=== PATIENT | female | born 1950 | race Caucasian/White ===

== ENCOUNTER → 2020-04-22 10:13 | Outpatient (BNVA) | payer MEDICARE, SELFPAY | PROVIDERS: PCP Physician Assistant; Visit Provider Internal Medicine | DX: J44.9 Chronic obstructive pulmonary disease, unspecified (principal) | CPT/HCPCS: 99212 ==

== ENCOUNTER 2020-08-06 10:06 | Outpatient (REF) | payer OTHER, SELFPAY ==
--- NOTE | ~2020-08-06 | CT_ITS ---
EXAMINATION: CT CHEST SCREENING CLINICAL INFORMATION: Nicotine dependence. COMPARISON: 07/11/2019 and 06/06/2018 TECHNIQUE: Multidetector volumetric CT imaging of the chest is performed without contrast using low dose technique. Additional 2-D coronal and sagittal reformatted images and axial 3-D maximum intensity projection (MIP) images are generated on the CT workstation. This CT examination was performed using dose optimization techniques as appropriate, variously including the following: *Automated exposure control *Adjustment of mA and/or kV according to patient size (this includes techniques or standardized protocols for targeted exams where dose is matched to indication/reason for exam; i.e. extremities or head) *Use of iterative reconstruction technique DLP: 37 mGy-cm FINDINGS: LUNGS: Lungs are hyperinflated. Changes of significant centrilobular emphysema are present. There is some scarring seen along the fissures. There is scarring seen about the anterior aspect of the right lower lobe. Central airways are patent. No significant bronchial wall thickening appreciated. No bronchiectasis. There are some scattered sub-4 mm densities present. There is calcification within the left lower lobe which may be related to broncholith or granuloma. There is a 4 mm noncalcified subpleural density seen posterior aspect of the right upper lobe on image 92 of 506 in series #5. This is stable. There is a 6 mm noncalcified density seen on image 128 of 506 within the right upper lobe. This is larger than on prior study where it measured 3 mm in diameter. There is a 5 mm noncalcified nodule seen within the superior segment of the right upper lobe on image 206 of 506. This is stable. MEDIASTINUM: Visualized portions of the thyroid gland are unremarkable. Heart normal size. Coronary artery calcification present. No thoracic aortic aneurysm. Small amount of nonocclusive aortic arch calcified plaque seen. No pericardial effusion. No mediastinal or hilar lymphadenopathy identified. PLEURA: There is no pleural effusion. No pleural mass or thickening. AXILLA: No lymphadenopathy. UPPER ABDOMEN: Unremarkable. OSSEOUS STRUCTURES: No suspicious destructive bony lesion identified. Old healed right rib fractures evident. There is a T4 compression fracture evident with the appearance of vertebra planum. This is new since previous study of 07/11/2019. CT/CT lung screening IMPRESSION: Changes of significant centrilobular emphysema. Stable appearance of nodules other than one in the right upper lobe which on prior study measured approximately 3 mm in diameter and now measures 6 mm in diameter. Interval development of T4 compression fracture since study of 07/11/2019. ASSESSMENT: Lung-RADS category 4A: Suspicious. RECOMMENDATION: Short interval 3-month followup low dose CT chest.
== END 2020-08-06 10:07 | disposition home or self-care (01) ==
LOC: HO.CT 10:06
PROVIDERS: Visit Provider Physician Assistant Medical
DX: Z12.2 Encounter for screening for malignant neoplasm of respiratory organs (principal); F17.210 Nicotine dependence, cigarettes, uncomplicated
CPT/HCPCS: 71271

== ENCOUNTER → 2020-10-19 09:54 | Outpatient (BNVA) | payer OTHER, SELFPAY | PROVIDERS: PCP Physician Assistant; Visit Provider Internal Medicine ==

== ENCOUNTER 2020-12-01 08:56 | Outpatient (REF) | payer MEDICARE, SELFPAY ==
--- NOTE | ~2020-12-01 | MM_ITS ---
EXAMINATION: BONE DENSITOMETRY CLINICAL INDICATION: Asymptomatic menopausal state. COMPARISON: None (current study represents initial baseline exam). TECHNIQUE: Using a [employer] DXA System (software version: 13.1) manufactured by [employer], dual-energy x-ray absorptiometry was performed of the lumbar spine and left hip. The images are of good technical quality. Summary results are attached. FINDINGS: AP SPINE L1-L3 (excluding L4): The data of L1-L4 has been changed to exclude the L4 vertebral body, because levocurvature and degenerative changes at this level may cause overestimation of lumbar spine density. BMD 0.748 g/cm2, Z-score -2.0, T-score -3.5, osteoporosis. LEFT FEMUR, NECK: BMD 0.686 g/cm2, Z-score -1.0, T-score -2.5, osteoporosis. LEFT FEMUR, TOTAL: BMD 0.718 g/cm2, Z-score -1.0, T-score -2.3, osteopenia. IDENTIFIED RISK FACTORS: Menopause. Low calcium intake. HISTORY OF FRACTURE: None listed. MEDICATIONS: None listed. MM/XR DEXA axial skeleton IMPRESSION: 1. DIAGNOSIS: Osteoporosis based on the lowest T-score value of -3.5 in the lumbar spine applying World Health Organization criteria. 2. 10-YEAR FRACTURE RISK PREDICTION, FRAX: Major osteoporotic fracture (clinical spine, forearm, hip or shoulder) 14.7%. Hip fracture 3.7%. 3. Treatment Recommendations: NOF guidelines recommend consideration for treatment in postmenopausal women and men age 50 and older presenting with the following: -A hip or vertebral (clinical or morphometric) fracture. -T-score less than or equal to -2.5 at the femoral neck or spine after appropriate evaluation to exclude secondary causes. -Low bone mass at the hip or spine and a 10-year fracture probability by FRAX of greater than or equal to 3% for hip fracture or greater than or equal to 20% for major osteoporotic fracture based on the [place] adapted WHO algorithm. 4. Other Recommendations: All treatment decisions require clinical judgment and consideration of individual patient factors, including patient preferences, comorbidities, previous drug use, risk factors not captured in the FRAX model (e.g. frailty, falls, vitamin D deficiency, increased bone turnover, interval significant decline in bone density) and possible under or overestimation of fracture risk by FRAX. Additional medical evaluation for secondary cause of low bone mineral density may be appropriate. FUTURE SCAN RECOMMENDATION: People with diagnosed cases of osteoporosis or at high risk for fracture should have regular bone mineral density tests. For patients eligible for Medicare, routine testing is allowed once every 2 years. The testing frequency can be increased to one year for patients who have rapidly progressing disease, those who are receiving or discontinuing medical therapy to restore bone mass, or have additional risk factors.
--- NOTE | ~2020-12-01 | MM_ITS ---
EXAMINATION: MM SCREENING DIGITAL BREAST TOMOSYNTHESIS, BILATERAL CLINICAL INFORMATION: Screening. Asymptomatic. The lifetime risk of breast cancer based on the Tyrer-Cuzick Model is 7%. COMPARISON: Mammography: 07/30/2019, 05/29/2018, 07/07/2016 TECHNIQUE: Digital breast tomosynthesis is performed in both the craniocaudal and mediolateral oblique views along with computer-aided detection (CAD). Synthesized 2D images are generated from the tomosynthesis. FINDINGS: There are scattered areas of fibroglandular density (ACR BI-RADS breast composition Category b). There are no significant masses, abnormal calcifications, or other abnormalities. Parenchymal pattern is similar to prior exams. The axilla and skin contours are unremarkable. MM/MM tomosynthesis screening BI IMPRESSION: No mammographic evidence of malignancy. ASSESSMENT: BI-RADS 1: Negative RECOMMENDATION: Routine annual mammography screening. This patient's information was entered into a reminder system with a target due date for their next mammogram.
== END 2020-12-01 08:57 | disposition home or self-care (01) ==
LOC: HO.MAMMO 08:56
PROVIDERS: Visit Provider Physician Assistant
DX: Z12.31 Encounter for screening mammogram for malignant neoplasm of breast (principal); Z13.820 Encounter for screening for osteoporosis; M81.0 Age-related osteoporosis without current pathological fracture; Z78.0 Asymptomatic menopausal state
CPT/HCPCS: 77063; 77067; 77080

== ENCOUNTER 2021-01-25 09:29 | Outpatient (REF) | payer OTHER, SELFPAY ==
--- NOTE | ~2021-01-25 | CT_ITS ---
EXAMINATION: CT CHEST SCREENING CLINICAL INFORMATION: Six-month low-dose CT screening protocol. COMPARISON: None. TECHNIQUE: Multidetector volumetric CT imaging of the chest is performed without contrast using low dose technique. Additional 2-D coronal and sagittal reformatted images and axial 3-D maximum intensity projection (MIP) images are generated on the CT workstation. This CT examination was performed using dose optimization techniques as appropriate, variously including the following: *Automated exposure control *Adjustment of mA and/or kV according to patient size (this includes techniques or standardized protocols for targeted exams where dose is matched to indication/reason for exam; i.e. extremities or head) *Use of iterative reconstruction technique DLP: 36 mGy-cm FINDINGS: LUNGS: The lungs are hyperinflated with linear thickening of bilateral inferior major fissures. Mild atelectatic changes are seen in the right lower lobe and, to a lesser extent, the left lower lobe. Previously seen nodule along the right upper lobe location measuring 5 mm, previously measured 4 mm. There is a 6 mm nodule posteriorly within the right upper lobe on axial image 117/6, stable. There is a 4 mm nodule seen in the right lower lobe superior segment medially on axial image 192/6 that previously measured 4 mm. No additional lesions seen. MEDIASTINUM: The heart size and the great vessels are normal caliber. Central trachea and the bronchi are widely patent. The thyroid lobes are symmetric and normal. No pericardial effusion seen. There are coronary artery calcifications present. PLEURA: There is no pleural effusion. No pleural mass or thickening. AXILLA: No lymphadenopathy. UPPER ABDOMEN: Visualized liver, spleen, pancreas, and bilateral adrenal glands are unremarkable. There is a punctate radiopaque calculus upper pole calyx left kidney. OSSEOUS STRUCTURES: There is a severe T4 compression fracture unchanged to 08/06/2020 exam. No new fractures seen. No lytic or sclerotic process seen. CT/CT lung screen follow up IMPRESSION: Bilateral pulmonary nodules are essentially stable. No new nodules or abnormal lymphadenopathy. ASSESSMENT: Lung RADS category 2. RECOMMENDATION: Low-dose annual CT chest.
== END 2021-01-25 09:30 | disposition home or self-care (01) ==
LOC: HO.CT 09:29
PROVIDERS: Visit Provider Physician Assistant Medical
DX: Z12.2 Encounter for screening for malignant neoplasm of respiratory organs (principal); Z87.891 Personal history of nicotine dependence
CPT/HCPCS: 71250

== ENCOUNTER → 2021-02-05 09:25 | Outpatient (BNVA) | payer OTHER, SELFPAY | PROVIDERS: PCP Physician Assistant; Visit Provider Surgery | DX: R91.8 Other nonspecific abnormal finding of lung field (principal); Z79.899 Other long term (current) drug therapy; Z87.891 Personal history of nicotine dependence | CPT/HCPCS: 99212 ==

== ENCOUNTER 2021-03-23 11:58 | Inpatient (IN) | payer OTHER, SELFPAY ==
[2021-03-23] VITALS (13 sets, daily range): BP systolic 112–174; BP diastolic 53–76; PULSE 86–116; RESP 19–33; TEMP 36.3–37.6; O2SAT 86–96; BMI 24.6
--- NOTE | ~2021-03-23 | CT_ITS ---
EXAMINATION: CT ANGIOGRAM OF THE CHEST WITH AND WITHOUT CONTRAST (CT PULMONARY ANGIOGRAM FOR PE) CLINICAL INFORMATION: Reason for Exam hypoxia, sob, elevated d dimer COMPARISON: None TECHNIQUE: Prior to contrast administration, noncontrast localization images were obtained. Subsequently, multidetector volumetric imaging was performed from the thoracic inlet to below the diaphragms following the administration of 80 mL Omnipaque 350 intravenous contrast. No contrast reaction reported Sagittal, coronal, and MIP oblique sagittal reformatted images were obtained on the CT workstation, uploaded to PACS, and reviewed. This CT examination was performed using dose optimization techniques as appropriate, variously including the following: *Automated exposure control *Adjustment of mA and/or kV according to patient size (this includes techniques or standardized protocols for targeted exams where dose is matched to indication/reason for exam; i.e. extremities or head) *Use of iterative reconstruction technique Total exam dose-length product 204 mGy-cm FINDINGS: QUALITY OF STUDY/CONTRAST BOLUS: Satisfactory. PULMONARY ARTERIES: No central or segmental pulmonary emboli. THORACIC AORTA: No aneurysm or dissection. LUNG: There is diffuse centrilobular emphysematous changes of both lungs without acute pneumonic process. There are no pulmonary nodules, mass or consolidation. Minimal subpleural linear atelectatic changes are seen in right middle lobe. In addition there is patchy consolidation/atelectasis right lower lobe lateral basal segment and consolidation in the right posterior basal segment. Compressive atelectasis is seen in the left lung base. PLEURA: There is no pleural thickening or effusion seen. MEDIASTINUM: The heart size and the great vessels are normal caliber. There are coronary artery calcifications. There is no pericardial effusion. No abnormal size mediastinal lymph nodes. Central trachea and the bronchi are widely patent. No evidence of septal bowing or right heart strain. CHEST WALL/AXILLA: No axillary or internal mammary lymphadenopathy. OSSEOUS STRUCTURES: There is severe compression fracture of T4 resulting in exaggerated thoracic thoracic kyphosis. No lytic or sclerotic process seen. UPPER ABDOMEN: Unremarkable. No reflux of contrast into the hepatic veins to suggest elevated right heart pressures. CT/CT angio chest PE protocol IMPRESSION: Diffuse centrilobular emphysema without any acute pneumonic process. There is bibasilar small consolidation greater on the right side and/or atelectasis. Addition there is subpleural right middle lobe platelike linear atelectasis No evidence of PE or aortic dissection. VTE: negative
--- NOTE | ~2021-03-23 | XR_ITS ---
EXAMINATION: XR CHEST CLINICAL INFORMATION: Shortness of breath, hypoxia COMPARISON: CT lung screening 01/25/2021, chest radiographs 08/28/2017, 04/20/2017. TECHNIQUE: Portable upright AP view of the chest was obtained. FINDINGS: There is hyperinflation with coarsening of the bronchiolar markings and subtle bibasilar patchy airspace opacities. Basilar changes are new from CT chest 01/25/2021. No lobar or segmental airspace consolidation or effusion. There is accentuated subpleural line lateral right hemithorax. No apical pneumothorax or pneumomediastinum. The heart is normal in size. The vascularity is normal. No acute bony abnormality. XR/XR chest 1V IMPRESSION: 1. Subtle bibasilar airspace opacities, new from CT lung screening 2020. 2. Coarsening bronchiolar markings, chronic hyperinflation. 3. Heart size normal. Vascularity unremarkable.
--- NOTE | 2021-03-23 12:15 | ECG_ITS ---
Test Reason : SOB Blood Pressure : / mmHG Vent. Rate : 111 BPM Atrial Rate : 111 BPM P-R Int : 172 ms QRS Dur : 080 ms QT Int : 340 ms P-R-T Axes : 077 072 076 degrees QTc Int : 462 ms Sinus tachycardia Right atrial enlargement Intra-ventricular conduction delay Nonspecific ST abnormality Abnormal ECG When compared with ECG of 15-JAN-2010 08:51, Premature ventricular complexes are no longer Present Referred By: Maude Pugh Electronically Signed By:RIKKI MATTHEWS MD
--- NOTE | 2021-03-23 12:31 | ED_ITS ---
HPI - SOB/Dyspnea General Chief Complaint: Dyspnea Stated Complaint: SOB FROM [facility] Time Seen by Provider: 03/23/21 12:15 Source: patient and EMS Mode of arrival: EMS Limitations: no limitations History of Present Illness HPI Narrative: 71-year-old female with past medical history of COPD not on oxygen at home, hypertension here with complaints of shortness of breath with cough and runny nose since . Seen at urgent care and noted to be hypoxic in the 80s. Received DuoNeb prior to arrival. Rapid COVID at urgent care negative. Patient denies any chest pain, fever, leg swelling or pain. She does report some chills at home. Fully vaccinated for COVID Related Data Home Medications Medication Instructions Recorded Confirmed alendronate 70 mg tablet 70 mg PO MO 03/23/21 03/23/21 diphenhydramine HCl 25 mg tablet 25 mg PO BEDTIME 03/23/21 03/23/21 Previous Rx's Medication Instructions Recorded albuterol sulfate 90 mcg/actuation 2 puff INHALATION Q4-6H PRN 30 10/19/20 aerosol inhaler Days #8.5 g calcium carbonate 500 mg calcium 500 mg PO DAILY 90 Days #90 tab 12/01/20 (1,250 mg) tablet (Oyster Shell Calcium 500) cholecalciferol (vitamin D3) 50 50 mcg PO DAILY 90 Days #90 cap 12/01/20 mcg (2,000 unit) capsule lisinopril 5 mg tablet 5 mg PO DAILY #90 tab 01/09/21 Incruse Ellipta 62.5 mcg/actuation 1 inh PO DAILY #30 ea NS 02/08/21 powder for inhalation (umeclidinium) Allergies Allergy/AdvReac Type Severity Reaction Status Date / Time No Known Allergies Allergy Verified 02/05/21 09:46 Review of Systems Review of Systems: Yes all other systems are reviewed and are negative Constitutional: Constitutional: Reports no additional constitutional complaints, Denies body ache(s), Reports chills, Denies fever(s), Denies headache(s) and Denies weakness Eyes: Eyes: Reports no additional eye complaints and Denies change in vision ENT: Reports system reviewed and no additional complaints, except as documented, Denies dizziness, Denies headache(s), Denies nasal congestion, Reports nasal discharge and Denies neck pain Cardiovascular: Cardiovascular: Reports no additional cardiovascular complaints, Denies chest pain, Denies leg edema and Reports dyspnea Respiratory: Respiratory: Reports no additional respiratory complaints, Reports cough and Reports dyspnea Gastrointestinal: Gastrointestinal: Reports no additional gastrointestinal complaints, Denies abdominal pain, Denies diarrhea, Denies nausea and Denies vomiting Genitourinary: Genitourinary: Reports no additional female genitourinary complaints and Denies urinary incontinence Musculoskeletal: Musculoskeletal: Reports no additional musculoskeletal complaints, Denies back pain, Denies arthralgias, Denies joint swelling, Denies neck pain, Denies numbness and Denies tingling Integumentary/Breasts: Skin/Breast: Reports system reviewed and no additional complaints, except as docu and Denies rash Neurologic: Reports system reviewed and no additional complaints, except as documented, Denies Abnormal speech present, Denies dizziness, Denies headache(s), Denies numbness, Denies tingling and Denies weakness PMFSH Past Medical History Attestation statement: The following information was validated with the patient. Source: old records reviewed and nursing notes reviewed Medical History COPD (chronic obstructive pulmonary disease) Personal history of nicotine dependence Social History Social History Housing: House Alcohol intake: never Patient Tobacco Use Status: Former Tobacco user Years Smoked: 30 Use of substances other than those prescribed or required for medical reasons: No Advance Directives: Yes Advance Directives Information Provided: No Advance Directives on File: No Current occupational status: retired Physical Exam Vital Signs: Vital Signs: Last Vital Signs Temp 99.6 F 03/23/21 12:11 Pulse 106 H 03/23/21 16:00 Resp 25 H 03/23/21 16:00 BP 129/63 03/23/21 13:32 Pulse Ox 92 03/23/21 16:00 Body Mass Index 24.6 Const: General: cooperative, healthy appearing, comfortable and no acute distress Orientation/consciousness: patient oriented x3 Limitations: no limitations HENMT: Head: Yes normal to inspection Ears: hearing grossly normal bilaterally and TM's normal bilaterally General nose exam: Normal external nose present Face and sinus: Yes normal facial exam Mouth: Normal oral and palatal mucosa present Throat: Yes posterior oropharynx normal, Yes tonsils normal and Yes uvula midline Eyes: General: appearance normal, both eyes and all related structures Pupils: Equal, round and reactive pupils present Neck: Neck: Yes normal visual inspection Chest: Chest palpation & inspection: normal inspection of the chest Resp: Other: Inspiratory and expiratory wheezing throughout Mild tachypnea with a rate of 24 Cardio: Rate: regular rate Rhythm: regular rhythm Peripheral pulses: Peripheral pulses 2+ throughout GI: Inspection: Yes normal to inspection Palpation (GI): Soft to palpation and nontender Auscultation: normal bowel sounds Back/Spine/Pelvis: Thoracic/Lumbar Spine: thoracic and lumbar spine normal to inspection Skin: General skin exam: no rashes or lesions noted Neuro: General: patient oriented x3, no focal motor deficits and normal sensa tion to monofilament Cranial nerves: Yes Equal, round and reactive pupils present Cognition (Neuro): normal cognition Speech: No Abnormal speech present Gait exam (Neuro): Normal gait present Motor exam (neuro): 5/5 motor strength present throughout Extrem: General: Yes normal to inspection, Yes no pedal edema and Yes no calf tenderness Course Course Course Narrative: 71-year-old female with a past medical history of COPD and hypertension here with complaints of shortness of breath, cough, runny nose and chills since . Went to urgent care and noted to be hypoxic. Received a DuoNeb and sent in for the ER for further evaluation. On arrival the patient is tachypneic, hypoxic 86% on room air, tachycardic. She has a low-grade fever. Will need labs including blood cultures and lactic acid, COVID screen, chest x- ray, ABG, albuterol, solumedrol. At this time infection cannot be ruled out. Antibiotics ordered. 1315-patient currently saturating 90% on a 55% venti. Morphine ordered for WOB. 1330-mild elevated troponin. No chest pain or EKG changes. Likely secondary to hypoxia. Will plan for repeat 3 hour 1430-went to see patient. She is mildly tachypneic with a rate of 24 she has an oxygen saturation 90% on a Venti mask at 55% oxygen, she has some tachycardia. She is alert and oriented texting on her phone. Likely her baseline is low due to her underlying COPD. However will rule out PE with CT a due to the persistent hypoxia. Patient quite uncomfortable with the venti mask. RT to place on HFNC for comfort. 1530-Patient on 55L at 55% on HFNC with saturation 94% and rr 22. Feels much more comfortable. WOB improved. 1600-D/w Dr George who accepted patient. MDM - SOB/Dyspnea Differential Diagnosis Differential diagnosis: Likely acute exacerbation of chronic obstructive airways disease and pneumonia Medical Records Attestation: I reviewed the patient's medical records. Lab Data Attestation: I reviewed the patient's lab results. Result diagrams: 03/23/21 12:44 03/23/21 12:44 Labs: Lab Results 03/23/21 03/23/21 03/23/21 Range/Units 12:44 12:44 12:44 WBC 11.4 H (4.8-10.8) X10*3/uL RBC 4.19 L (4.20-5.50) X10*6/uL Hgb 11.8 L (12.0-16.0) g/dl Hct 37.4 (37-47) % MCV 89.3 (80-98) fL MCH 28.2 (27.0-33.0) pg MCHC 31.6 (31.0-35.0) g/dl RDW 14.6 (11.0-16.0) % Plt Count 295 (160-400) X10*3/uL MPV 9.0 L (9.4-12.3) fL Immature Gran % (Auto) 0.7 H (0.0-0.4) % Neut % (Auto) 73.3 H (45-73) % Lymph % (Auto) 14.8 L (20-40) % [place] % (Auto) 10.0 (2-11) % Eos % (Auto) 0.8 (0-4) % Baso % (Auto) 0.4 (0-2) % Lymph # (Auto) 1.7 (1.2-4.9) X10*3/uL [place] # (Auto) 1.1 (0.1-1.2) X10*3/uL Eos # (Auto) 0.1 (0.0-0.4) X10*3/uL Baso # (Auto) 0.0 (0.0-0.2) X10*3/uL Abs Immat Gran (auto) 0.08 H (0.00-0.03) X10*3/uL Absolute Neuts (auto) 8.4 H (2.0-8.3) X10*3/uL Absolute Nucleated RBC 0.000 (0.0-0.012) X10*3/uL Nucleated RBC % (auto) 0.0 (0.0-0.2) /100WBC D-Dimer NG/ML O2 Saturation % ABG pH at Pt Temp (7.35-7.45) ABG pH (Temp Correct) (7.35-7.45) ABG pCO2 at Pt Temp (32-45) mmHg ABG pCO2 (Temp Corrct (32-45) mmHg ABG pO2 at Pt Temp (83-108) mmHg ABG pO2 (Temp Correct (83-108) ABG HCO3 (22-26) mmol/L ABG Base Excess (Actual) mmol/L Sodium 138 (135-145) mmol/L Potassium 3.7 (3.3-5.1) mmol/L Chloride 99 (96-108) mmol/L Carbon Dioxide 28 (22-29) mmol/L Anion Gap 15 (12-20) BUN 11 (9-16) mg/dL Creatinine 0.69 (0.5-1.4) mg/dL Estim Creat Clear Calc 72.0 Estimated GFR > 60 Random Glucose 115 (60-115) mg/dL Lactic Acid 1.7 (0.5-2.0) mmol/L Calcium 8.7 (8.4-10.2) mg/dL Magnesium 2.1 (1.6-2.6) mg/dL Total Bilirubin 0.5 (0.0-1.0) mg/dL Direct Bilirubin 0.3 (0.0-0.5) mg/dL AST 38 H (5-31) U/L ALT 49 H (0-31) U/L Alkaline Phosphatase 255 H (39-117) U/L Troponin I High Sens (<3.5-17.0) ng/L B-Natriuretic Peptide (<100) pg/mL Total Protein 6.6 (6.5-8.0) g/dL Albumin 3.7 (3.5-5.0) g/dL Coronavirus (PCR) (Negative) Influenza Type A (PCR) (Negative) Influenza Type B (PCR) (Negative) RSV RNA Qual (PCR) (Negative) 03/23/21 03/23/21 03/23/21 Range/Units 12:44 12:44 12:44 WBC (4.8-10.8) X10*3/uL RBC (4.20-5.50) X10*6/uL Hgb (12.0-16.0) g/dl Hct (37-47) % MCV (80-98) fL MCH (27.0-33.0) pg MCHC (31.0-35.0) g/dl RDW (11.0-16.0) % Plt Count (160-400) X10*3/uL MPV (9.4-12.3) fL Immature Gran % (Auto) (0.0-0.4) % Neut % (Auto) (45-73) % Lymph % (Auto) (20-40) % [place] % (Auto) (2-11) % Eos % (Auto) (0-4) % Baso % (Auto) (0-2) % Lymph # (Auto) (1.2-4.9) X10*3/uL [place] # (Auto) (0.1-1.2) X10*3/uL Eos # (Auto) (0.0-0.4) X10*3/uL Baso # (Auto) (0.0-0.2) X10*3/uL Abs Immat Gran (auto) (0.00-0.03) X10*3/uL Absolute Neuts (auto) (2.0-8.3) X10*3/uL Absolute Nucleated RBC (0.0-0.012) X10*3/uL Nucleated RBC % (auto) (0.0-0.2) /100WBC D-Dimer NG/ML O2 Saturation % ABG pH at Pt Temp (7.35-7.45) ABG pH (Temp Correct) (7.35-7.45) ABG pCO2 at Pt Temp (32-45) mmHg ABG pCO2 (Temp Corrct (32-45) mmHg ABG pO2 at Pt Temp (83-108) mmHg ABG pO2 (Temp Correct (83-108) ABG HCO3 (22-26) mmol/L ABG Base Excess (Actual) mmol/L Sodium (135-145) mmol/L Potassium (3.3-5.1) mmol/L Chloride (96-108) mmol/L Carbon Dioxide (22-29) mmol/L Anion Gap (12-20) BUN (9-16) mg/dL Creatinine (0.5-1.4) mg/dL Estim Creat Clear Calc Estimated GFR Random Glucose (60-115) mg/dL Lactic Acid (0.5-2.0) mmol/L Calcium (8.4-10.2) mg/dL Magnesium (1.6-2.6) mg/dL Total Bilirubin (0.0-1.0) mg/dL Direct Bilirubin (0.0-0.5) mg/dL AST (5-31) U/L ALT (0-31) U/L Alkaline Phosphatase (39-117) U/L Troponin I High Sens 50.8 H* (<3.5-17.0) ng/L B-Natriuretic Peptide 118 H (<100) pg/mL Total Protein (6.5-8.0) g/dL Albumin (3.5-5.0) g/dL Coronavirus (PCR) NEGATIVE (Negative) Influenza Type A (PCR) NEGATIVE (Negative) Influenza Type B (PCR) NEGATIVE (Negative) RSV RNA Qual (PCR) NEGATIVE (Negative) 03/23/21 03/23/21 Range/Units 12:44 12:45 WBC (4.8-10.8) X10*3/uL RBC (4.20-5.50) X10*6/uL Hgb (12.0-16.0) g/dl Hct (37-47) % MCV (80-98) fL MCH (27.0-33.0) pg MCHC (31.0-35.0) g/dl RDW (11.0-16.0) % Plt Count (160-400) X10*3/uL MPV (9.4-12.3) fL Immature Gran % (Auto) (0.0-0.4) % Neut % (Auto) (45-73) % Lymph % (Auto) (20-40) % [place] % (Auto) (2-11) % Eos % (Auto) (0-4) % Baso % (Auto) (0-2) % Lymph # (Auto) (1.2-4.9) X10*3/uL [place] # (Auto) (0.1-1.2) X10*3/uL Eos # (Auto) (0.0-0.4) X10*3/uL Baso # (Auto) (0.0-0.2) X10*3/uL Abs Immat Gran (auto) (0.00-0.03) X10*3/uL Absolute Neuts (auto) (2.0-8.3) X10*3/uL Absolute Nucleated RBC (0.0-0.012) X10*3/uL Nucleated RBC % (auto) (0.0-0.2) /100WBC D-Dimer 433 NG/ML O2 Saturation 89.0 % ABG pH at Pt Temp 7.45 (7.35-7.45) ABG pH (Temp Correct) 7.44 (7.35-7.45) ABG pCO2 at Pt Temp 36 (32-45) mmHg ABG pCO2 (Temp Corrct 37 (32-45) mmHg ABG pO2 at Pt Temp 61 L (83-108) mmHg ABG pO2 (Temp Correct 64 L (83-108) ABG HCO3 25 (22-26) mmol/L ABG Base Excess (Actual) 2.0 mmol/L Sodium (135-145) mmol/L Potassium (3.3-5.1) mmol/L Chloride (96-108) mmol/L Carbon Dioxide (22-29) mmol/L Anion Gap (12-20) BUN (9-16) mg/dL Creatinine (0.5-1.4) mg/dL Estim Creat Clear Calc Estimated GFR Random Glucose (60-115) mg/dL Lactic Acid (0.5-2.0) mmol/L Calcium (8.4-10.2) mg/dL Magnesium (1.6-2.6) mg/dL Total Bilirubin (0.0-1.0) mg/dL Direct Bilirubin (0.0-0.5) mg/dL AST (5-31) U/L ALT (0-31) U/L Alkaline Phosphatase (39-117) U/L Troponin I High Sens (<3.5-17.0) ng/L B-Natriuretic Peptide (<100) pg/mL Total Protein (6.5-8.0) g/dL Albumin (3.5-5.0) g/dL Coronavirus (PCR) (Negative) Influenza Type A (PCR) (Negative) Influenza Type B (PCR) (Negative) RSV RNA Qual (PCR) (Negative) Imaging Data Chest x-ray: Attestation: I personally reviewed and interpreted this imaging study as follows: Radiologist's impression: FINDINGS: There is hyperinflation with coarsening of the bronchiolar markings and subtle bibasilar patchy airspace opacities. Basilar changes are new from CT chest 01/25/2021. No lobar or segmental airspace consolidation or effusion. There is accentuated subpleural line lateral right hemithorax. No apical pneumothorax or pneumomediastinum. The heart is normal in size. The vascularity is normal. No acute bony abnormality. XR/XR chest 1V IMPRESSION: 1. Subtle bibasilar airspace opacities, new from CT lung screening 2020. 2. Coarsening bronchiolar markings, chronic hyperinflation. 3. Heart size normal. Vascularity unremarkable. ? CT scan - chest: Attestation: I personally reviewed and interpreted this imaging study as follows: Radiologist's impression: FINDINGS: QUALITY OF STUDY/CONTRAST BOLUS: Satisfactory. PULMONARY ARTERIES: No central or segmental pulmonary emboli.? THORACIC AORTA: No aneurysm or dissection. LUNG: There is diffuse centrilobular emphysematous changes of both lungs without acute pneumonic process. There are no pulmonary nodules, mass or consolidation. Minimal subpleural linear atelectatic changes are seen in right middle lobe. In addition there is patchy consolidation/atelectasis right lower lobe lateral basal segment and consolidation in the right posterior basal segment. Compressive atelectasis is seen in the left lung base. PLEURA: There is no pleural thickening or effusion seen. MEDIASTINUM: The heart size and the great vessels are normal caliber. There are coronary artery calcifications. There is no pericardial effusion. No abnormal size mediastinal lymph nodes. Central trachea and the bronchi are widely patent.? No evidence of septal bowing or right heart strain. CHEST WALL/AXILLA: No axillary or internal mammary lymphadenopathy. OSSEOUS STRUCTURES: There is severe compression fracture of T4 resulting in exaggerated thoracic thoracic kyphosis. No lytic or sclerotic process seen.? UPPER ABDOMEN: Unremarkable.? No reflux of contrast into the hepatic veins to suggest elevated right heart pressures. CT/CT angio chest PE protocol IMPRESSION: Diffuse centrilobular emphysema without any acute pneumonic process. ? There is bibasilar small consolidation greater on the right side and/or atelectasis. Addition there is subpleural right middle lobe platelike linear atelectasis ? No evidence of PE or aortic dissection. ? VTE: negative ECG Data Attestation: I personally reviewed and interpreted this ECG as follows: ECG interpretation date: 03/23/21 ECG interpretation time: 12:22 Interpretation: Sinus tachycardia with a rate of 111, normal ND, normal QRS, normal QT Discharge Plan Discharge Clinical Impression: Community acquired pneumonia, COPD (chronic obstructive pulmonary disease), Hypoxia Patient Disposition: Admitted As Inpatient
[2021-03-23] MEDS: Albuterol Sulfate (0.083%) 2.5 MG/3 ML VIAL.NEB 5 MG INHALE (12:38)
--- NOTE | 2021-03-23 12:48 | PC.NURSE ---
pt on 6ls nc getting rt treatment via med air. dropped to 78%. pt placed on nrb at 15 and back up to 97% pt reports relief of sob. sob got worse on treatment. tax collection coordinator aware rt called.
[2021-03-23 12:51] LABS: ABG HCO3 25 mmol/L (22-26); ABG pCO2 36 mmHg (32-45); ABG pCO2 TC 37 mmHg (32-45); ABG pH 7.45 (7.35-7.45); ABG pH TC 7.44 (7.35-7.45); ABG pO2 61 mmHg (83-108); ABG pO2 TC 64 (83-108)
[2021-03-23 12:52] LABS: Basophils Percent Auto 0.4 % (0-2); Eosinophils Absolute Auto 0.1 X10*3/uL (0.0-0.4); Eosinophils Percent Auto 0.8 % (0-4); Hematocrit 37.4 % (37-47); Hemoglobin 11.8 g/dl (12.0-16.0); Imm Gran Abs Auto 0.08 X10*3/uL (0.00-0.03); Imm Gran Pct Auto 0.7 % (0.0-0.4); Lymphocytes Absolute Auto 1.7 X10*3/uL (1.2-4.9); Lymphocytes Percent Auto 14.8 % (20-40); MANUAL DIFF FLAG NO; Mean Corpuscular HGB Conc 31.6 g/dl (31.0-35.0); Mean Corpuscular Hemoglobin 28.2 pg (27.0-33.0); Mean Corpuscular Volume 89.3 fL (80-98); Monocytes Absolute Auto 1.1 X10*3/uL (0.1-1.2); Neutrophils Absolute Auto 8.4 X10*3/uL (2.0-8.3); Neutrophils Percent Auto 73.3 % (45-73); Platelet Count 295 X10*3/uL (160-400); Red Blood Count 4.19 X10*6/uL (4.20-5.50); Red Cell Distribution Width 14.6 % (11.0-16.0); White Blood Count 11.4 X10*3/uL (4.8-10.8)
[2021-03-23] MEDS: cefTRIAXone sodium 1 GM in 0.9 % Sodium Chloride 50 ML IV (12:55)
[2021-03-23] MEDS: methylPREDNISolone Sod Succ 125 MG/2 ML VIAL IVPUSH (12:56)
[2021-03-23 12:59] LABS: ABG Refer to POC result
[2021-03-23 13:02] LABS: D Dimer 433 NG/ML
[2021-03-23 13:03] LABS: Lactic Acid 1.7 mmol/L (0.5-2.0)
[2021-03-23 13:10] LABS: Alanine Aminotransferase 49 U/L (0-31); Albumin Level 3.7 g/dL (3.5-5.0); Alkaline Phosphatase 255 U/L (39-117); Anion Gap 15 (12-20); Aspartate Amino Transferase 38 U/L (5-31); Bilirubin Direct 0.3 mg/dL (0.0-0.5); Bilirubin Total 0.5 mg/dL (0.0-1.0); Blood Urea Nitrogen 11 mg/dL (9-16); Calcium 8.7 mg/dL (8.4-10.2); Carbon Dioxide 28 mmol/L (22-29); Chloride 99 mmol/L (96-108); Estimated Glomerular Filt Rate > 60; Glucose Random 115 mg/dL (60-115); Magnesium 2.1 mg/dL (1.6-2.6); Potassium 3.7 mmol/L (3.3-5.1); Sodium 138 mmol/L (135-145); Total Protein 6.6 g/dL (6.5-8.0)
[2021-03-23 13:12] LABS: B Type Natriuretic Peptide 118 pg/mL (<100)
[2021-03-23 13:25] LABS: Troponin-I High Sensitivity 50.8 ng/L (<3.5-17.0)
--- NOTE | 2021-03-23 13:31 | PHA.MEDREC ---
Pharmacy Consult ? Medication Reconciliation Pharmacy has completed the medication reconciliation. There are no remarkable issues for provider's attention. Asiya Nolasco, KenyaD
[2021-03-23] MEDS: Morphine Sulfate 2 MG/ML CARTRIDGE IVPUSH (13:35)
[2021-03-23 13:40] LABS: Influenza A PCR NEGATIVE (Negative); Influenza B PCR NEGATIVE (Negative); Resp Syncy Virus RNA Qual PCR NEGATIVE (Negative); SARS COV2 PCR INHOUSE NEGATIVE (Negative)
[2021-03-23] MEDS: iohexoL 350 MG/ML 100 ML INFUS..BTL IV (14:57)
[2021-03-23] MEDS: Azithromycin 500 MG in 0.9 % Sodium Chloride 250 ML 125 MG IV (15:02)
--- NOTE | 2021-03-23 15:11 | PC.NURSE ---
pt tolerating high flow well
--- NOTE | 2021-03-23 16:23 | P.HPHOSP_ITS ---
History of Present Illness Date of Service: 03/23/21 Attending physician on admission: Nadine George Chief Complaint: Shortness of breath 71-year-old female patient with past medical history significant for COPD not on home oxygen, hypertension, osteoporosis transferred to [facility] from urgent care clinic, patient went this morning to urgent care to rule out COVID infection since she was suffering from runny nose, shortness of breath, cough and chills for last 5-6 days, patient denies any associated fevers, denies sick contacts no recent travel denies allergy symptoms of sneezing since patient noted to be significantly short of breath and hypoxic with finger oximetry in 80s, she was transferred to ER via ambulance in the ER patient was noted to be hypoxic therefore placed on Ventimask 55% patient oxygenation improved but she was uncomfortable with the Venti mask therefore transitioned to high-flow oxygen 50%, currently patient is feeling better but remains short of breath chest x-ray showed bilateral basilar Airspace opacities, due to persistent hypoxia CT chest was obtained that showed centrilobular emphysema small consolidation versus atelectasis patient is now be ing admitted to [facility] due to acute hypoxic respiratory failure likely due to COPD exacerbation and pneumonia. Review of Systems Review of Systems: General no headache, no dizziness, no fever,+ chills. CVS no chest pain, no palpitation. Respiratory productive cough,sob. Gastrointestinal no nausea, no vomiting, no abdominal pain Yes all other systems are reviewed and are negative [facility] Medical History COPD (chronic obstructive pulmonary disease) Personal history of nicotine dependence Functional capacity: independent ambulation Pertinent family history: No family history of COPD, no family history of premature coronary artery disease Social History Housing: House Alcohol intake: never Patient Tobacco Use Status: Former Tobacco user Years Smoked: 30 Use of substances other than those prescribed or required for medical reasons: No Advance Directives: Yes Advance Directives Information Provided: No Advance Directives on File: No Current occupational status: retired History of recent travel: No Meds Allergies Allergy/AdvReac Type Severity Reaction Status Date / Time No Known Allergies Allergy Verified 02/05/21 09:46 Active Medications: Current Medications Acetaminophen (Acetaminophen 325 Mg Tablet) 650 mg PO Q6H PRN PRN Reason: Pain, Mild (Pain Scale 1-3) Azithromycin 500 mg/ Sodium (Chloride) 250 mls @ 125 mls/hr IV ONCE ONE Stop: 03/23/21 16:24 Last Admin: 03/23/21 15:02 Dose: 125 mls/hr Documented by: Ondansetron HCl (Ondansetron Hcl 4 Mg/2 Ml Vial) 4 mg IVPUSH Q8H PRN PRN Reason: Nausea and Vomiting Pharmacy Consult (Consult Rx Perform Med Rec) 1 each MISCELLANE ONCE PRN PRN Reason: Consult order Sodium Chloride (0.9 % Sodium Chloride Flush 3 Ml Syringe) 3 ml IVFLUSH [facility] Home Medications Medication Instructions Recorded Confirmed Last Taken Type alendronate 70 mg tablet 70 mg PO MO 03/23/21 03/23/21 03/23/21 History diphenhydramine HCl 25 mg tablet 25 mg PO BEDTIME 03/23/21 03/23/21 03/22/21 History Physical Exam Vital Signs and Narrative: Vital Signs: Last Vital Signs Temp 99.6 F 03/23/21 12:11 Pulse 106 H 03/23/21 16:00 Resp 25 H 03/23/21 16:00 BP 129/63 03/23/21 13:32 Pulse Ox 92 03/23/21 16:00 Body Mass Index 24.6 General awake alert x3 mild respiratory distress. Neck supple, no JVD. CVS regular rate rhythm, Respiratory lungs diminished breath sounds bilaterally, mild respiratory distress, no wheeze, no rhonchi. Gastrointestinal abdomen soft, nontender, bowel sounds audible, no guarding , no rigidity. Extremities no clubbing cyanosis or edema. Neuro nonfocal , speech clear. Skin no rash Psych appropriate affect Musculoskeletal no deformity Results Labs CBC and Chem 7: 03/23/21 12:44 03/23/21 12:44 Labs: Laboratory Results - last 24 hr 03/23/21 03/23/21 03/23/21 12:44 12:44 12:44 MCV 89.3 MCH 28.2 MCHC 31.6 RDW 14.6 Plt Count 295 MPV 9.0 L Immature Gran % (Auto) 0.7 H Neut % (Auto) 73.3 H Lymph % (Auto) 14.8 L [place] % (Auto) 10.0 Eos % (Auto) 0.8 Baso % (Auto) 0.4 Lymph # (Auto) 1.7 [place] # (Auto) 1.1 Eos # (Auto) 0.1 Baso # (Auto) 0.0 Abs Immat Gran (auto) 0.08 H Absolute Neuts (auto) 8.4 H Absolute Nucleated RBC 0.000 Nucleated RBC % (auto) 0.0 D-Dimer O2 Saturation ABG pH at Pt Temp ABG pH (Temp Correct) ABG pCO2 at Pt Temp ABG pCO2 (Temp Corrct ABG pO2 at Pt Temp ABG pO2 (Temp Correct ABG HCO3 ABG Base Excess (Actual) Anion Gap 15 Estim Creat Clear Calc 72.0 Estimated GFR > 60 Random Glucose 115 Lactic Acid 1.7 Calcium 8.7 Magnesium 2.1 Total Bilirubin 0.5 Direct Bilirubin 0.3 AST 38 H ALT 49 H Alkaline Phosphatase 255 H Troponin I High Sens B-Natriuretic Peptide Total Protein 6.6 Albumin 3.7 Coronavirus (PCR) Influenza Type A (PCR) Influenza Type B (PCR) RSV RNA Qual (PCR) 03/23/21 03/23/21 03/23/21 12:44 12:44 12:44 MCV MCH MCHC RDW Plt Count MPV Immature Gran % (Auto) Neut % (Auto) Lymph % (Auto) [place] % (Auto) Eos % (Auto) Baso % (Auto) Lymph # (Auto) [place] # (Auto) Eos # (Auto) Baso # (Auto) Abs Immat Gran (auto) Absolute Neuts (auto) Absolute Nucleated RBC Nucleated RBC % (auto) D-Dimer O2 Saturation ABG pH at Pt Temp ABG pH (Temp Correct) ABG pCO2 at Pt Temp ABG pCO2 (Temp Corrct ABG pO2 at Pt Temp ABG pO2 (Temp Correct ABG HCO3 ABG Base Excess (Actual) Anion Gap Estim Creat Clear Calc Estimated GFR Random Glucose Lactic Acid Calcium Magnesium Total Bilirubin Direct Bilirubin AST ALT Alkaline Phosphatase Troponin I High Sens 50.8 H* B-Natriuretic Peptide 118 H Total Protein Albumin Coronavirus (PCR) NEGATIVE Influenza Type A (PCR) NEGATIVE Influenza Type B (PCR) NEGATIVE RSV RNA Qual (PCR) NEGATIVE 03/23/21 03/23/21 12:44 12:45 MCV MCH MCHC RDW Plt Count MPV Immature Gran % (Auto) Neut % (Auto) Lymph % (Auto) [place] % (Auto) Eos % (Auto) Baso % (Auto) Lymph # (Auto) [place] # (Auto) Eos # (Auto) Baso # (Auto) Abs Immat Gran (auto) Absolute Neuts (auto) Absolute Nucleated RBC Nucleated RBC % (auto) D-Dimer 433 O2 Saturation 89.0 ABG pH at Pt Temp 7.45 ABG pH (Temp Correct) 7.44 ABG pCO2 at Pt Temp 36 ABG pCO2 (Temp Corrct 37 ABG pO2 at Pt Temp 61 L ABG pO2 (Temp Correct 64 L ABG HCO3 25 ABG Base Excess (Actual) 2.0 Anion Gap Estim Creat Clear Calc Estimated GFR Random Glucose Lactic Acid Calcium Magnesium Total Bilirubin Direct Bilirubin AST ALT Alkaline Phosphatase Troponin I High Sens B-Natriuretic Peptide Total Protein Albumin Coronavirus (PCR) Influenza Type A (PCR) Influenza Type B (PCR) RSV RNA Qual (PCR) Imaging Radiologist's Impressions: Impressions Chest X-Ray 03/23/21 12:15 IMPRESSION: 1. Subtle bibasilar airspace opacities, new from CT lung screening 2020. 2. Coarsening bronchiolar markings, chronic hyperinflation. 3. Heart size normal. Vascularity unremarkable. Chest CTA 03/23/21 14:20 IMPRESSION: Diffuse centrilobular emphysema without any acute pneumonic process. There is bibasilar small consolidation greater on the right side and/or atelectasis. Addition there is subpleural right middle lobe platelike linear atelectasis No evidence of PE or aortic dissection. VTE: negative Assessment and Plan (1) Community acquired pneumonia: Status: Acute (2) HTN (hypertension): Qualifiers: Hypertension type: primary hypertension Qualified Code(s): I10 - [place] tial (primary) hypertension Status: Acute (3) Acute respiratory failure with hypoxia: Status: Acute (4) COPD exacerbation: Status: Acute (5) Sepsis: Status: Acute 71-year-old female patient with past medical history significant for COPD, hypertension and osteoporosis presented to hospital with 5-6 day history of shortness of breath cough and chills. Acute hypoxic respiratory failure due to COPD exacerbation and pneumonia Will admit to medical floor Place patient on IV steroids 60 mg q.8 hours, scheduled and as needed updraft treatment, cough medication, and IV ceftriaxone and azithromycin Obtain pulmonary consultation if no improvement with above treatment Gradually wean oxygen patient not on home O2 ABG showed hypoxia normal pCO2 BNP 118 no evidence of CHF Community-acquired pneumonia/sepsis Tachycardia and tachypnea due to COPD exacerbation and sepsis Treat with IV azithromycin and ceftriaxone, normal lactic acid Follow blood culture Mildly elevated troponin No chest pain likely due to tachycardia and hypoxia, EKG showed no acute ischemic change Follow repeat troponin Hypertension BP stable not on home medication Code status full code DVT prophylaxis with Lovenox Quality Stroke Does the patient have a stroke diagnosis?: No VTE Prior VTE?: No VTE Risk Level:: Medical - moderate - high VTE Device Contraindication: Treatment Not Indicated VTE Drug Contraindication: N/A - Med Ordered
[2021-03-23 16:59] LABS: Troponin-I High Sensitivity 39.1 ng/L (<3.5-17.0)
[2021-03-23] MEDS: Albuterol/Iprat 2.5/0.5MG 3 ML AMPUL.NEB INHALE (20:03)
--- NOTE | 2021-03-23 20:06 | PC.NURSE ---
Pt alert and oriented x4, calm and cooperative. Pt denies pain at this time. Pt states SOB has improved at this time, denies chest pain. Pt remains on high flow nasal cannula with O2 sat at 92%. IV intact and flushes well. Vitals stable. Pt resting in stretcher waiting for bed assignment, will continue to monitor.
[2021-03-23] MEDS: methylPREDNISolone Sod Succ 125 MG/2 ML VIAL 60 MG IVPUSH (20:39)
[2021-03-23] MEDS: diphenhydrAMINE HCL 25 MG TABLET PO (20:39)
--- NOTE | 2021-03-23 20:48 | PC.NURSE ---
Pt remains alert and oriented x4, calm and cooperative. Pt denies pain. Pt remains on high flow nasal cannula and tolerating well, O2 sat at 96%. Report called now, waiting for DERIK Kern to call back.
[2021-03-24] VITALS (14 sets, daily range): BP systolic 113–121; BP diastolic 64–80; PULSE 72–107; RESP 16–24; TEMP 36–36.8; O2SAT 89–100
[2021-03-24] MEDS: 0.9 % Sodium Chloride Flush 3 ML SYRINGE IVFLUSH ×4 (00:47→20:39)
[2021-03-24] MEDS: methylPREDNISolone Sod Succ 125 MG/2 ML VIAL 60 MG IVPUSH ×3 (05:15→20:38)
[2021-03-24] MEDS: Albuterol/Iprat 2.5/0.5MG 3 ML AMPUL.NEB INHALE ×4 (08:40→20:40)
[2021-03-24] MEDS: lisinopriL 5 MG TABLET PO (09:36)
--- NOTE | 2021-03-24 11:37 | MHC.CM.PN ---
met with pt who lives with her they had no services prior to admisison and do not expect to need services when dcd hcp filed
--- NOTE | 2021-03-24 13:19 | P.CONPL_ITS ---
History of Present Illness History of Present Illness Consult date: 03/24/21 Chief complaint: COPD exacerbation/pneumonia Narrative: This 71 years old female is a known case of the chronic obstructive pulmonary disease, for the past many years. She has been relatively stable and uses Incruse Ellipta 1 inhalation daily as well as albuterol HFA as rescue inhaler, which she hardly needs to use. She has not used oxygen before. She has past history of smoking for about 30 years but quit a few years ago. Now she has symptoms of cough , increasing shortness of breath low-grade fever, chills and runny nose for about 4-5 days. She went to the urgent care to be checked for COVID. But on arrival over there she was noted to be quite short of breath with very low O2 sats. Requiring a Ventimask. She was sent to the [facility] Emergency Room, and after initial evaluation has been admitted. Due to her increased oxygen requirement and discomfort with the Ventimask, she is now currently placed on high-flow O2 . With which she feels quite comfortable. Chest x-ray and CT a of the chest show patchy densities in her right lower lobe and to some extent in the left base. COVID test negative . Also the viral panel including influenza a and B are negative. She is being followed by me as outpatient Q 6 months and has been stable. Also being followed for by ANNUAL lung screening program, for multiple but small pulmonary nodules, considered benign. Review of Systems Review of Systems: Most of her symptoms are respiratory as described above in the HPI. Does not voice any other significant symptoms. Yes all other systems are reviewed and are negative PMFSH Past Medical History Medical History COPD (chronic obstructive pulmonary disease) Personal history of nicotine dependence Functional capacity: independent ambulation Social History Social History Household Members: Spouse and Family Household Members Other:: daughter and her friend Housing: House Do you presently have visiting nurse or other home services: No Alcohol intake: never Patient Tobacco Use Status: Former Tobacco user Tobacco use type: Cigarette Years Smoked: 30 e-Cigarette/Vaping Use: Never Used Second Hand Smoke Exposure: Yes service: No Current occupational status: retired Meds Allergies Allergy/AdvReac Type Severity Reaction Status Date / Time No Known Allergies Allergy Verified 02/05/21 09:46 Active Medications: Current Medications Acetaminophen (Acetaminophen 325 Mg Tablet) 650 mg PO Q6H PRN PRN Reason: Pain, Mild (Pain Scale 1-3) Albuterol/Ipratropium (Albuterol/Iprat 2.5/0.5mg 3 Ml Ampul.Neb) 3 ml INHALE RQ4H WHILE AWAKE [facility] Last Admin: 03/24/21 11:55 Dose: 3 ml Documented by: Calcium Carbonate (Calcium Carbonate 500 Mg Tablet) 500 mg PO DAILY [facility] Last Admin: 03/24/21 09:36 Dose: 500 mg Documented by: Diphenhydramine HCl (Diphenhydramine Hcl 25 Mg Tablet) 25 mg PO BEDTIME [facility] Last Admin: 03/23/21 20:39 Dose: 25 mg Documented by: Guaifenesin/Dextromethorphan (Guaifenesin Dm 100/10/5 Ml 5 Ml Syrup) 10 ml PO Q6H PRN PRN Reason: cough Azithromycin 500 mg/ Sodium (Chloride) 250 mls @ 125 mls/hr IV Q24H [facility] Ceftriaxone Sodium 1 gm/ (Sodium Chloride) 50 mls @ 100 mls/hr IV Q24H [facility] Lisinopril (Lisinopril 5 Mg Tablet) 5 mg PO DAILY [facility]; Protocol Last Admin: 03/24/21 09:36 Dose: 5 mg Documented by: Methylprednisolone Sodium Succinate (Methylprednisolone Sod Succ 125 Mg/2 Ml Vial) 60 mg IVPUSH Q8H [facility] Last Admin: 03/24/21 05:15 Dose: 60 mg Documented by: Ondansetron HCl (Ondansetron Hcl 4 Mg/2 Ml Vial) 4 mg IVPUSH Q8H PRN PRN Reason: Nausea and Vomiting Pharmacy Consult (Consult Rx Perform Med Rec) 1 each MISCELLANE ONCE PRN PRN Reason: Consult order Sodium Chloride (0.9 % Sodium Chloride Flush 3 Ml Syringe) 3 ml IVFLUSH QSHIFT [facility] Last Admin: 03/24/21 09:36 Dose: 3 ml Documented by: Home Medications Medication Instructions Recorded Confirmed Last Taken Type alendronate 70 mg tablet 70 mg PO MO 03/23/21 03/23/21 03/23/21 History diphenhydramine HCl 25 mg tablet 25 mg PO BEDTIME 03/23/21 03/23/21 03/22/21 History Physical Exam Vital Signs: Vital Signs: Last Vital Signs Temp 97.2 F 03/24/21 11:30 Pulse 92 03/24/21 11:56 Resp 20 03/24/21 11:56 BP 113/69 03/24/21 11:30 Pulse Ox 93 03/24/21 11:30 Body Mass Index 24.6 Const: General: comfortable (on High Flow O2 at 45 L/mt), no acute distress, alert and awake Orientation/consciousness: patient oriented x3 HENMT: Head: Yes normal to inspection General nose exam: No nasal polyps present and No nasal discharge present Face and sinus: Yes sinuses nontender Mouth: oropharynx normal Throat: Yes posterior oropharynx normal Eyes: General: appearance normal, both eyes and all related structures Neck: Neck: Yes normal visual inspection, Yes no lymphadenopathy, Yes trachea midline and Yes no JVD Thyroid: Thyroid normal Chest: Chest palpation & inspection: normal inspection of the chest, normal palpation of entire chest wall and no tenderness Resp: Other: Percussion note is resonant. Breath sounds are very distant with prolonged expiratory phase. Inspiratory rhonchi and crepitations heard over the right lower lobe and left base. Cardio: Palpation: normal PMI Rate: regular rate Rhythm: regular rhythm Heart sounds: no gallops and no murmurs GI: Palpation (GI): Soft to palpation, nontender, No hepatosplenomegaly present and no masses Auscultation: normal bowel sounds Back/Spine/Pelvis: Thoracic/Lumbar Spine: thoracic and lumbar spine normal to inspection Skin: General skin exam: no rashes or lesions noted Neuro: General: patient oriented x3 and no focal motor deficits Cranial nerves: Yes CN's II-XII intact bilaterally Extrem: General: Yes normal to inspection, Yes no clubbing, cyanosis or edema and Yes no calf tenderness Psych: Appearance: grossly normal and well kempt Speech and movement: Normal speech and movement present Results Laboratory Findings CBC and BMP: 03/23/21 12:44 03/23/21 12:44 ABG, PT/INR, D-dimer: PT/INR, D-dimer D-Dimer 433 NG/ML 03/23/21 12:44 Abnormal lab findings: Abnormal Labs 03/23/21 03/23/21 03/23/21 12:44 12:44 12:44 WBC 11.4 H RBC 4.19 L Hgb 11.8 L MPV 9.0 L Immature Gran % (Auto) 0.7 H Neut % (Auto) 73.3 H Lymph % (Auto) 14.8 L Abs Immat Gran (auto) 0.08 H Absolute Neuts (auto) 8.4 H ABG pO2 at Pt Temp ABG pO2 (Temp Correct AST 38 H ALT 49 H Alkaline Phosphatase 255 H Troponin I High Sens 50.8 H* B-Natriuretic Peptide 03/23/21 03/23/21 03/23/21 12:44 12:45 16:10 WBC RBC Hgb MPV Immature Gran % (Auto) Neut % (Auto) Lymph % (Auto) Abs Immat Gran (auto) Absolute Neuts (auto) ABG pO2 at Pt Temp 61 L ABG pO2 (Temp Correct 64 L AST ALT Alkaline Phosphatase Troponin I High Sens 39.1 H* B-Natriuretic Peptide 118 H Coronavirus (COVID 2019): Negative Microbiology: Blood cultures pending Diagnostic Findings Chest x-ray: report reviewed and image reviewed CT scan - chest: report reviewed and image reviewed Assessment and Plan (1) COPD exacerbation: Status: Acute Patient has acute exacerbation of chronic obstructive pulmonary disease, Caused by acute pneumonia right lower lobe and left base. TX: Agree with the current treatment, Patient will need a course of IV Solu-Medrol then phase to oral prednisone, and also antibiotics to treat community-acquired pneumonia. She will continue DuoNeb updrafts Q 4-6 hours p.r.n.. And oxygen supplementation. (2) Acute respiratory failure with hypoxia: Status: Acute She has significant VQ abnormality at this time and requires high-flow oxygen. Continue, to maintain O2 sat above 90%. As she starts improving, goal is to wean her off the high-kinsey and use nasal cannula (3) Community acquired pneumonia: Status: Acute She does have patchy infiltrates in the right lower lobe and left base, most likely due to community-acquired pneumonia. Agree with the current combination of antibiotics including azithromycin and ceftriaxone. (4) Pulmonary nodule: Status: Acute Patient does have multiple micro nodules, and is being followed in the lung screening program on Annual basis Procedures Date of Service Date of Service: 03/24/21
[2021-03-24] MEDS: cefTRIAXone sodium 1 GM in 0.9 % Sodium Chloride 50 ML IV (14:05)
--- NOTE | 2021-03-24 15:25 | P.PNIM_ITS ---
Subjective Subjective Date of Service: 03/24/21 Interval History: Admitted for shortness of breath and acute hypoxic respiratory failure patient feeling a little better this morning is still feels short of breath, no chest pain, no fevers no chills, remains on high-flow oxygen overnight. Review of Systems General no headache, no dizziness, no fever chills. CVS no chest pain, no palpitation. Respiratory cough, positive shortness of breath Gastrointestinal no nausea no vomiting, no abdominal pain Review of Systems: Yes all other systems are reviewed and are negative Physical Exam Vital Signs: Vital Signs: Last Vital Signs Temp 97.2 F 03/24/21 11:30 Pulse 92 03/24/21 11:56 Resp 20 03/24/21 11:56 BP 113/69 03/24/21 11:30 Pulse Ox 93 03/24/21 11:30 Body Mass Index 24.6 General alert oriented x3, no acute distress. Neck supple ,no JVD. CVS regular rate rhythm, Respiratory lungs diminished breath sound bilaterally few expiratory wheeze bilateral , mild respiratory distress, no use of accessory muscles Gastrointestinal abdomen soft, nontender, bowel sounds audible,no guarding , no rigidity. Extremities no edema. Neuro nonfocal , moving all 4 extremity speech clear. Skin no rash Objective Data Active Medications Acetaminophen (Acetaminophen 325 Mg Tablet) 650 mg PO Q6H PRN PRN Reason: Pain, Mild (Pain Scale 1-3) Albuterol/Ipratropium (Albuterol/Iprat 2.5/0.5mg 3 Ml Ampul.Neb) 3 ml INHALE RQ4H WHILE AWAKE [facility] Last Admin: 03/24/21 11:55 Dose: 3 ml Documented by: SHON Calcium Carbonate (Calcium Carbonate 500 Mg Tablet) 500 mg PO DAILY [facility] Last Admin: 03/24/21 09:36 Dose: 500 mg Documented by: BRANDY Diphenhydramine HCl (Diphenhydramine Hcl 25 Mg Tablet) 25 mg PO BEDTIME [facility] Last Admin: 03/23/21 20:39 Dose: 25 mg Documented by: MACHO Guaifenesin/Dextromethorphan (Guaifenesin Dm 100/10/5 Ml 5 Ml Syrup) 10 ml PO Q6H PRN PRN Reason: cough Azithromycin 500 mg/ Sodium (Chloride) 250 mls @ 125 mls/hr IV Q24H [facility] Ceftriaxone Sodium 1 gm/ (Sodium Chloride) 50 mls @ 100 mls/hr IV Q24H [facility] Last Admin: 03/24/21 14:05 Dose: 100 mls/hr Documented by: BRANDY Lisinopril (Lisinopril 5 Mg Tablet) 5 mg PO DAILY [facility]; Protocol Last Admin: 03/24/21 09:36 Dose: 5 mg Documented by: BRANDY Methylprednisolone Sodium Succinate (Methylprednisolone Sod Succ 125 Mg/2 Ml Vial) 60 mg IVPUSH Q8H [facility] Last Admin: 03/24/21 14:03 Dose: 60 mg Documented by: BRANDY Ondansetron HCl (Ondansetron Hcl 4 Mg/2 Ml Vial) 4 mg IVPUSH Q8H PRN PRN Reason: Nausea and Vomiting Pharmacy Consult (Consult Rx Perform Med Rec) 1 each MISCELLANE ONCE PRN PRN Reason: Consult order Sodium Chloride (0.9 % Sodium Chloride Flush 3 Ml Syringe) 3 ml IVFLUSH QSHIFT [facility] Last Admin: 03/24/21 09:36 Dose: 3 ml Documented by: BRANDY Labs CBC & Chem 7: 03/23/21 12:44 03/23/21 12:44 Labs: Laboratory Results - last 24 hr 03/23/21 16:10 Troponin I High Sens 39.1 H* Microbiology Microbiology Results: Microbiology 03/23/21 12:46 Blood Culture - Preliminary Blood - Venous No growth after 24 hours. 03/23/21 12:44 Blood Culture - Preliminary Blood - Venous No growth after 24 hours. Assessment and Plan (1) COPD exacerbation: Status: Acute (2) Sepsis: Status: Acute (3) Acute respiratory failure with hypoxia: Status: Acute (4) Community acquired pneumonia: Status: Acute (5) Pulmonary nodule: Status: Acute Assessment and Plan: ?71-year-old female patient with past medical history significant for COPD, hypertension and osteoporosis presented to hospital with 5-6 day history of shortness of breath cough and chills. Acute hypoxic respiratory failure due to COPD exacerbation and pneumonia Feeling better with less shortness of breath, persistent hypoxia Continue IV steroids 60 mg q.8 hours, scheduled and as needed updraft treatment, cough medication, and IV ceftriaxone and azithromycin day 2 ABG showed hypoxia normal pCO2 BNP 118 no evidence of CHF Patient seen by Dr. Fernandez he agrees with above treatment, will gradually wean high-flow oxygen Community-acquired pneumonia/sepsis Tachycardia and tachypnea due to COPD exacerbation and sepsis Continue IV azithromycin and ceftriaxone, normal lactic acid Follow blood culture Mildly elevated troponin No chest pain likely due to tachycardia and hypoxia, EKG showed no acute ischemic change, troponin flat no further workup warranted. History of pulmonary nodules being followed as outpatient with pulmonology Hypertension BP stable continue lisinopril 5 mg Code status full code DVT prophylaxis with Lovenox Quality Stroke Does the patient have a stroke diagnosis?: No VTE Prior VTE?: No VTE Risk Level:: Medical - moderate - high VTE Device Contraindication: Treatment Not Indicated VTE Drug Contraindication: N/A - Med Ordered
[2021-03-24] MEDS: Azithromycin 500 MG in 0.9 % Sodium Chloride 250 ML 125 MG IV (15:42)
[2021-03-24] MEDS: Enoxaparin Sodium 40 MG/0.4 ML SYRINGE SUBCUT (15:43)
[2021-03-24] MEDS: diphenhydrAMINE HCL 25 MG TABLET PO (20:39)
[2021-03-25] VITALS (10 sets, daily range): BP systolic 121–133; BP diastolic 61–74; PULSE 80–113; RESP 16–21; TEMP 36.2–36.8; O2SAT 89–99
[2021-03-25] MEDS: methylPREDNISolone Sod Succ 125 MG/2 ML VIAL 60 MG IVPUSH (04:06)
[2021-03-25] MEDS: Albuterol/Iprat 2.5/0.5MG 3 ML AMPUL.NEB INHALE ×4 (08:18→19:55)
[2021-03-25] MEDS: 0.9 % Sodium Chloride Flush 3 ML SYRINGE IVFLUSH ×2 (09:18→16:02)
[2021-03-25] MEDS: lisinopriL 5 MG TABLET PO (09:18)
[2021-03-25] MEDS: methylPREDNISolone Sod Succ 125 MG/2 ML VIAL 40 MG IVPUSH ×2 (09:19→18:50)
[2021-03-25 09:31] LABS: Alanine Aminotransferase 44 U/L (0-31); Albumin Level 3.5 g/dL (3.5-5.0); Alkaline Phosphatase 209 U/L (39-117); Anion Gap 17 (12-20); Aspartate Amino Transferase 30 U/L (5-31); Bilirubin Total 0.2 mg/dL (0.0-1.0); Blood Urea Nitrogen 21 mg/dL (9-16); Calcium 9.1 mg/dL (8.4-10.2); Carbon Dioxide 29 mmol/L (22-29); Chloride 101 mmol/L (96-108); Creatinine Clr Calc Pharmacy 75.3; Estimated Glomerular Filt Rate > 60; Glucose Random 131 mg/dL (60-115); Potassium 5.5 mmol/L (3.3-5.1); Sodium 141 mmol/L (135-145); Total Protein 6.1 g/dL (6.5-8.0)
--- NOTE | 2021-03-25 10:45 | PM.PNPUL ---
Subjective Subjective Date of Service: 03/25/21 Interval history: She feels better today but still short of breath on minimal effort and still requiring oxygen by nasal cannula. Instead of high-flow at least she is down to 8 L/minute by nasal cannula, which is a definite improvement. Denies fever chills or chest pain, still quite weak. Objective Data Labs CBC & Chem 7: 03/23/21 12:44 03/25/21 08:24 Labs: Laboratory Results - last 24 hr 03/25/21 08:24 Sodium 141 Potassium 5.5 H D Chloride 101 Carbon Dioxide 29 Anion Gap 17 BUN 21 H D Creatinine 0.66 Estim Creat Clear Calc 75.3 Estimated GFR > 60 Random Glucose 131 H Calcium 9.1 Total Bilirubin 0.2 AST 30 ALT 44 H Alkaline Phosphatase 209 H Total Protein 6.1 L Albumin 3.5 Microbiology Microbiology Results: Microbiology 03/23/21 12:46 Blood - Venous Blood Culture - Preliminary No growth after 24 hours. 03/23/21 12:44 Blood - Venous Blood Culture - Preliminary No growth after 24 hours. Review of Systems Review of Systems Yes all other systems are reviewed and are negative Physical Exam Vital Signs: Vital Signs: Last Vital Signs Temp 97.1 F 03/25/21 07:34 Pulse 88 03/25/21 08:20 Resp 21 H 03/25/21 07:34 BP 132/74 03/25/21 07:34 Pulse Ox 92 03/25/21 07:34 Body Mass Index 24.6 Const: General: comfortable (But short of breath during conversation), no acute distress, alert and awake Orientation/consciousness: patient oriented x3 HENMT: Head: Yes normal to inspection General nose exam: No nasal polyps present and No nasal discharge present Face and sinus: Yes sinuses nontender Mouth: oropharynx normal Throat: Yes posterior oropharynx normal Eyes: General: appearance normal, both eyes and all related structures Neck: Neck: Yes normal visual inspection, Yes no lymphadenopathy, Yes trachea midline and Yes no JVD Thyroid: Thyroid normal Chest: Chest palpation & inspection: normal inspection of the chest, normal palpation of entire chest wall and no tenderness Resp: Other: Percussion note is resonant, breath sounds distant on both sides. There are scattered inspiratory crackles over the lower lobes, no wheezes. Cardio: Palpation: normal PMI Rate: regular rate Rhythm: regular rhythm Heart sounds: no gallops and no murmurs GI: Palpation (GI): Soft to palpation, nontender, No hepatosplenomegaly present and no masses Auscultation: normal bowel sounds Back/Spine/Pelvis: Thoracic/Lumbar Spine: thoracic and lumbar spine normal to inspection Skin: General skin exam: no rashes or lesions noted Neuro: General: patient oriented x3 and no focal motor deficits Cranial nerves: Yes CN's II-XII intact bilaterally Extrem: General: Yes normal to inspection, Yes no clubbing, cyanosis or edema and Yes no calf tenderness Psych: Appearance: grossly normal Speech and movement: Normal speech and movement present Procedures Date of Service Date of Service: 03/25/21 Assessment and Plan Assessment and plan (1) COPD exacerbation: Problem details: Patient is slowly improving, Oxygen requirement has definitely improved, which is a good sign. TX: Continue IV Solu-Medrol and DuoNeb updrafts. Wean down on FiO2 slowly, goal is to keep O2 sat above 90%. Status: Acute (2) Acute respiratory failure with hypoxia: Status: Acute Assessment and Plan: She has significant hypoxemia due to V-Q. Abnormality, due to acute exacerbation of COPD. It is definitely improved, and as noted above goal is to wean down on FiO2, she will probably need maintenance oxygen supplementation at 2-3 L/minute, on ongoing basis. Time Spent With Patient Time: Total time spent is greater than 50% in coordination of care (as documented) at patient's floor/unit and/or counseling patient: Time with patient: 15 - 24 minutes Progress Note: Quality Stroke Does the patient have a stroke diagnosis?: No
[2021-03-25] MEDS: cefTRIAXone sodium 1 GM in 0.9 % Sodium Chloride 50 ML IV (11:35)
[2021-03-25] MEDS: Azithromycin 500 MG in 0.9 % Sodium Chloride 250 ML 125 MG IV (14:13)
[2021-03-25] MEDS: Enoxaparin Sodium 40 MG/0.4 ML SYRINGE SUBCUT (15:57)
--- NOTE | 2021-03-25 17:46 | HO.PM.IMPN ---
Subjective Subjective Date of Service: 03/25/21 Interval History: breathing improved, down to 5.5L O2 via NC some cough no fever no chest pain Review of Systems Review of Systems: Yes all other systems are reviewed and are negative Physical Exam Vital Signs: Vital Signs: Last Vital Signs Temp 98.2 F 03/25/21 15:53 Pulse 110 H 03/25/21 16:04 Resp 18 03/25/21 15:53 BP 121/61 03/25/21 15:53 Pulse Ox 95 03/25/21 15:53 Body Mass Index 24.6 Gen: in no acute distress HEENT: sclera anicteric, moist mucus membranes Neck: supple Lungs: R sided inspiratory crackles + scattered exp wheezes Heart: regular rate and rhythm, no murmurs Abd: soft, non-tender, non-distended Ext: no edema Skin: warm/well-perfused Neuro: alert and oriented x3, no focal findings Psych: appropriate affect Objective Data Active Medications Acetaminophen (Acetaminophen 325 Mg Tablet) 650 mg PO Q6H PRN PRN Reason: Pain, Mild (Pain Scale 1-3) Albuterol/Ipratropium (Albuterol/Iprat 2.5/0.5mg 3 Ml Ampul.Neb) 3 ml INHALE RQ4H WHILE AWAKE [facility] Last Admin: 03/25/21 16:03 Dose: 3 ml Documented by: SHON Calcium Carbonate (Calcium Carbonate 500 Mg Tablet) 500 mg PO DAILY [facility] Last Admin: 03/25/21 09:18 Dose: 500 mg Documented by: DOMINIQUE Diphenhydramine HCl (Diphenhydramine Hcl 25 Mg Tablet) 25 mg PO BEDTIME [facility] Last Admin: 03/24/21 20:39 Dose: 25 mg Documented by: RENUKA Enoxaparin Sodium (Enoxaparin Sodium 40 Mg/0.4 Ml Syringe) 40 mg SUBCUT Q24H [facility] Last Admin: 03/25/21 15:57 Dose: 40 mg Documented by: TAYLER Guaifenesin/Dextromethorphan (Guaifenesin Dm 100/10/5 Ml 5 Ml Syrup) 10 ml PO Q6H PRN PRN Reason: cough Azithromycin 500 mg/ Sodium (Chloride) 250 mls @ 125 mls/hr IV Q24H [facility] Last Infusion: 03/25/21 16:31 Dose: 0 mls/hr Documented by: TAYLER Ceftriaxone Sodium 1 gm/ (Sodium Chloride) 50 mls @ 100 mls/hr IV Q24H [facility] Last Infusion: 03/25/21 12:05 Dose: 0 mls/hr Documented by: DOMINIQUE Lisinopril (Lisinopril 5 Mg Tablet) 5 mg PO DAILY [facility]; Protocol Last Admin: 03/25/21 09:18 Dose: 5 mg Documented by: DOMINIQUE Methylprednisolone Sodium Succinate (Methylprednisolone Sod Succ 125 Mg/2 Ml Vial) 40 mg IVPUSH Q8H [facility] Last Admin: 03/25/21 09:19 Dose: 40 mg Documented by: DOMINIQUE Ondansetron HCl (Ondansetron Hcl 4 Mg/2 Ml Vial) 4 mg IVPUSH Q8H PRN PRN Reason: Nausea and Vomiting Pharmacy Consult (Consult Rx Perform Med Rec) 1 each MISCELLANE ONCE PRN PRN Reason: Consult order Sodium Chloride (0.9 % Sodium Chloride Flush 3 Ml Syringe) 3 ml IVFLUSH QSHIFT [facility] Last Admin: 03/25/21 16:02 Dose: 3 ml Documented by: TAYLER Labs CBC & Chem 7: 03/23/21 12:44 03/25/21 08:24 Labs: Laboratory Results - last 24 hr 03/25/21 08:24 Anion Gap 17 Estim Creat Clear Calc 75.3 Estimated GFR > 60 Random Glucose 131 H Calcium 9.1 Total Bilirubin 0.2 AST 30 ALT 44 H Alkaline Phosphatase 209 H Total Protein 6.1 L Albumin 3.5 Microbiology Microbiology Results: Microbiology 03/23/21 12:46 Blood Culture - Preliminary Blood - Venous No growth after 48 hours. 03/23/21 12:44 Blood Culture - Preliminary Blood - Venous No growth after 48 hours. Assessment and Plan (1) COPD exacerbation: Status: Acute (2) Sepsis: Status: Acute (3) Acute respiratory failure with hypoxia: Status: Acute (4) Community acquired pneumonia: Status: Acute (5) Pulmonary nodule: Status: Acute Assessment and Plan: hospital d#3 71yo F with COPD presenting with dyspnea, cough and chills, admitted for sepsis + hypoxia due to PNA + COPD exacerbation # acute hypoxic resp failure # COPD exacerbation # pneumonia # sepsis - continue IV steroids- wean as tolerated - continue standing/prn nebs - IV ceftriaxone + azithromycin d#3, BCx NGTD, trend PCT - wean O2 as tolerated - seen by Dr Fernandez from Pulmonology # troponin indeterminate - flat, no ischemic changes on EKG, no angina; likely due to demand from sepsis # pulmonary nodules, cronic - outpt Pulmonology f/u # HTN - continue lisinopril # VTE ppx - LMWH # dispo - anticipate home with VNA Quality Stroke Does the patient have a stroke diagnosis?: No VTE Prior VTE?: No VTE Risk Level:: Medical - moderate - high VTE Device Contraindication: Treatment Not Indicated VTE Drug Contraindication: N/A - Med Ordered
[2021-03-25] MEDS: diphenhydrAMINE HCL 25 MG TABLET PO (20:28)
[2021-03-26] VITALS (9 sets, daily range): BP systolic 130–166; BP diastolic 63–80; PULSE 84–101; RESP 17–21; TEMP 36.2–36.7; O2SAT 90–99
[2021-03-26] MEDS: 0.9 % Sodium Chloride Flush 3 ML SYRINGE IVFLUSH ×4 (01:00→21:19)
[2021-03-26] MEDS: methylPREDNISolone Sod Succ 125 MG/2 ML VIAL 40 MG IVPUSH ×3 (02:16→21:19)
[2021-03-26 05:47] LABS: Hematocrit 34.7 % (37-47); Hemoglobin 10.8 g/dl (12.0-16.0); Mean Corpuscular HGB Conc 31.1 g/dl (31.0-35.0); Mean Corpuscular Hemoglobin 27.8 pg (27.0-33.0); Mean Corpuscular Volume 89.2 fL (80-98); Mean Platelet Volume 9.1 fL (9.4-12.3); Platelet Count 418 X10*3/uL (160-400); Red Blood Count 3.89 X10*6/uL (4.20-5.50); Red Cell Distribution Width 14.7 % (11.0-16.0); White Blood Count 15.7 X10*3/uL (4.8-10.8)
[2021-03-26 06:10] LABS: Anion Gap 13 (12-20); Blood Urea Nitrogen 23 mg/dL (9-16); Calcium 8.7 mg/dL (8.4-10.2); Carbon Dioxide 32 mmol/L (22-29); Chloride 102 mmol/L (96-108); Creatinine Clr Calc Pharmacy 75.3; Estimated Glomerular Filt Rate > 60; Glucose Random 140 mg/dL (60-115); Potassium 4.5 mmol/L (3.3-5.1); Sodium 142 mmol/L (135-145)
[2021-03-26] MEDS: Albuterol/Iprat 2.5/0.5MG 3 ML AMPUL.NEB INHALE ×4 (07:20→19:51)
[2021-03-26] MEDS: lisinopriL 5 MG TABLET PO (07:43)
--- NOTE | 2021-03-26 08:05 | HO.PM.IMPN ---
Subjective Subjective Date of Service: 03/26/21 Interval History: Breathing slowly improving; now on 3.5L O2 via NC Wet cough Still dyspneic and slightly tachpneic Review of Systems Review of Systems: Yes all other systems are reviewed and are negative Physical Exam Vital Signs: Vital Signs: Last Vital Signs Temp 97.3 F 03/26/21 07:43 Pulse 93 03/26/21 07:43 Resp 21 H 03/26/21 07:43 BP 132/65 03/26/21 07:43 Pulse Ox 91 L 03/26/21 07:43 Body Mass Index 24.6 Gen: coughing, somewhat tachypneic HEENT: sclera anicteric, moist mucus membranes Neck: supple Lungs: tachypneic, diminished on R with a few inspiratory crackles Heart: regular rate and rhythm, no murmurs Abd: soft, non-tender, non-distended Ext: no edema Skin: warm/well-perfused Neuro: alert and oriented x3, no focal findings Psych: appropriate affect Objective Data Active Medications Acetaminophen (Acetaminophen 325 Mg Tablet) 650 mg PO Q6H PRN PRN Reason: Pain, Mild (Pain Scale 1-3) Albuterol/Ipratropium (Albuterol/Iprat 2.5/0.5mg 3 Ml Ampul.Neb) 3 ml INHALE RQ4H WHILE AWAKE [facility] Last Admin: 03/26/21 07:20 Dose: 3 ml Documented by: CONNOR Calcium Carbonate (Calcium Carbonate 500 Mg Tablet) 500 mg PO DAILY [facility] Last Admin: 03/26/21 07:43 Dose: 500 mg Documented by: ASHLYN Diphenhydramine HCl (Diphenhydramine Hcl 25 Mg Tablet) 25 mg PO BEDTIME [facility] Last Admin: 03/25/21 20:28 Dose: 25 mg Documented by: ISAAK Enoxaparin Sodium (Enoxaparin Sodium 40 Mg/0.4 Ml Syringe) 40 mg SUBCUT Q24H [facility] Last Admin: 03/25/21 15:57 Dose: 40 mg Documented by: TAYLER Guaifenesin/Dextromethorphan (Guaifenesin Dm 100/10/5 Ml 5 Ml Syrup) 10 ml PO Q6H PRN PRN Reason: cough Azithromycin 500 mg/ Sodium (Chloride) 250 mls @ 125 mls/hr IV Q24H [facility] Last Infusion: 03/25/21 16:31 Dose: 0 mls/hr Documented by: TAYLER Ceftriaxone Sodium 1 gm/ (Sodium Chloride) 50 mls @ 100 mls/hr IV Q24H [facility] Last Infusion: 03/25/21 12:05 Dose: 0 mls/hr Documented by: DOMINIQUE Lisinopril (Lisinopril 5 Mg Tablet) 5 mg PO DAILY [facility]; Protocol Last Admin: 03/26/21 07:43 Dose: 5 mg Documented by: ASHLYN Methylprednisolone Sodium Succinate (Methylprednisolone Sod Succ 125 Mg/2 Ml Vial) 40 mg IVPUSH Q8H [facility] Last Admin: 03/26/21 02:16 Dose: 40 mg Documented by: KYARA Ondansetron HCl (Ondansetron Hcl 4 Mg/2 Ml Vial) 4 mg IVPUSH Q8H PRN PRN Reason: Nausea and Vomiting Pharmacy Consult (Consult Rx Perform Med Rec) 1 each MISCELLANE ONCE PRN PRN Reason: Consult order Sodium Chloride (0.9 % Sodium Chloride Flush 3 Ml Syringe) 3 ml IVFLUSH QSHIFT [facility] Last Admin: 03/26/21 07:43 Dose: 3 ml Documented by: ASHLYN Labs CBC & Chem 7: 03/26/21 05:11 03/26/21 05:11 Labs: Laboratory Results - last 24 hr 03/25/21 03/26/21 03/26/21 08:24 05:11 05:11 MCV 89.2 MCH 27.8 MCHC 31.1 RDW 14.7 Plt Count 418 H D MPV 9.1 L Absolute Nucleated RBC 0.000 Nucleated RBC % (auto) 0.0 Anion Gap 17 13 Estim Creat Clear Calc 75.3 75.3 Estimated GFR > 60 > 60 Random Glucose 131 H 140 H Calcium 9.1 8.7 Total Bilirubin 0.2 AST 30 ALT 44 H Alkaline Phosphatase 209 H Total Protein 6.1 L Albumin 3.5 Microbiology Microbiology Results: Microbiology 03/23/21 12:46 Blood Culture - Preliminary Blood - Venous No growth after 48 hours. 03/23/21 12:44 Blood Culture - Preliminary Blood - Venous No growth after 48 hours. Assessment and Plan (1) COPD exacerbation: Status: Acute (2) Sepsis: Status: Acute (3) Acute respiratory failure with hypoxia: Status: Acute (4) Community acquired pneumonia: Status: Acute (5) Pulmonary nodule: Status: Acute Assessment and Plan: hospital d#4 71yo F with COPD presenting with dyspnea, cough and chills, admitted for sepsis + hypoxia due to PNA + COPD exacerbation # acute hypoxic resp failure # COPD exacerbation # community-acquired pneumonia # sepsis due to pneumonia - continue IV steroids- taper - continue standing/prn nebs - IV ceftriaxone + azithromycin d#4, BCx NGTD, trend PCT - wean O2 as tolerated; may need to go home on O2 - being followed by Dr Fernandez from Pulmonology # troponin indeterminate - flat, no ischemic changes on EKG, no angina; likely due to demand from sepsis # pulmonary nodules, cronic - outpt Pulmonology f/u # HTN - continue lisinopril # VTE ppx - LMWH # dispo - anticipate home with VNA; may require home O2 Quality Stroke Does the patient have a stroke diagnosis?: No VTE Prior VTE?: No VTE Risk Level:: Medical - moderate - high VTE Device Contraindication: Treatment Not Indicated VTE Drug Contraindication: N/A - Med Ordered
[2021-03-26 09:04] LABS: Procalcitonin 0.03 ng/mL
[2021-03-26] MEDS: cefTRIAXone sodium 1 GM in 0.9 % Sodium Chloride 50 ML IV (11:21)
[2021-03-26] MEDS: Azithromycin 500 MG in 0.9 % Sodium Chloride 250 ML 125 MG IV (14:57)
[2021-03-26] MEDS: Enoxaparin Sodium 40 MG/0.4 ML SYRINGE SUBCUT (17:04)
[2021-03-26] MEDS: diphenhydrAMINE HCL 25 MG TABLET PO (21:19)
[2021-03-27] VITALS (7 sets, daily range): BP systolic 124–168; BP diastolic 59–72; PULSE 72–108; RESP 16–17; TEMP 36–36.4; O2SAT 84–99
[2021-03-27] MEDS: Albuterol/Iprat 2.5/0.5MG 3 ML AMPUL.NEB INHALE ×2 (08:11→11:27)
[2021-03-27] MEDS: lisinopriL 5 MG TABLET PO (09:50)
[2021-03-27] MEDS: 0.9 % Sodium Chloride Flush 3 ML SYRINGE IVFLUSH (09:50)
[2021-03-27] MEDS: methylPREDNISolone Sod Succ 125 MG/2 ML VIAL 40 MG IVPUSH (09:50)
--- NOTE | 2021-03-27 10:48 | P.F2F_ITS ---
Service Date Service Date: 03/27/21 Encounter Date of encounter: 03/27/21 Reasons for Services Reason for intermediate: medication management, teach disease management and other (new oxygen requirement) Reason for physical therapy: home safety and mobility, therapeutic exercises, gait/transfer training, assess need for DME, ADL training, energy conservation and other (pulmonary rehab) MD Overseeing Care: Shay Bryant Homebound: Leaving the home is medically contraindicated at this time without the asist of a device and/or another person due th the listed conditions above and below. Reason homebound: shortness of breath with minimal effort and weakness related to hospital stay Homebound supporting statement: 1L O2 at rest, 6L O2 with ambulation Certification: Based on the above findings, I certify that this patient is confined to the home and needs intermittent intermediate care, physical therapy and/or speech therapy, or continues to need occupational therapy. The patient is under my care, and I have initiated the establishment of the plan of care. The patient will be followed by a physician who will periodically review the plan of care.
--- NOTE | 2021-03-27 10:55 | P.DS_ITS ---
DS: Providers Provider Date of Service: 03/27/21 Date of admission: 03/23/21 16:17 Primary care physician: Shay Bryant PA-C Consults: 03/24/21 09:10 Consult to Pulmonology Routine Consulting Provider: Trenton Fernandez Reason for consultation: hypoxia Has provider been notified: No DS: Diagnosis Discharge Diagnosis (1) COPD exacerbation: Status: Acute (2) Sepsis: Status: Acute (3) Acute respiratory failure with hypoxia: Status: Acute (4) Community acquired pneumonia: Status: Acute DS: Summary Hospital Course Hospital Course: from admission history and physical by hospitalist Nadine George MD, 03/23/21: 71-year-old female patient with past medical history significant for COPD not on home oxygen, hypertension, osteoporosis transferred to [facility] from urgent care clinic, patient went this morning to urgent care to rule out COVID infection since she was suffering from runny nose, shortness of breath, cough and chills for last 5-6 days, patient denies any associated fevers, denies sick contacts no recent travel denies allergy symptoms of sneezing since patient noted to be significantly short of breath and hypoxic with finger oximetry in 80s, she was transferred to ER via ambulance in the ER patient was noted to be hypoxic therefore placed on Ventimask 55% patient oxygenation improved but she was uncomfortable with the Venti mask therefore transitioned to high-flow oxygen 50%, currently patient is feeling better but remains short of breath chest x-ray showed bilateral basilar Airspace opacities, due to persistent hypoxia CT chest was obtained that showed centrilobular emphysema small consolidation versus atelectasis patient is now being admitted to [facility] due to acute hypoxic respiratory failure likely due to COPD exacerbation and pneumonia. This 71yo F with COPD presenting with dyspnea, cough and chills was admitted to the medical/surgical floor for sepsis + hypoxia due to PNA + COPD exacerbation. She was treated with IV steroid taper and IV ceftriaxone plus azithromycin. Blood cultures were negative. She required supplemental oxygen and was discharged home on 1L O2 via NC at rest, to increase to 6L O2 via NC with activity. She was prescribed 8 more days of prednisone taper and 2 more days of PO cefuroxime and azithromycin. She should follow up with her primary care doctor in 1 week and with her dispatch manager, Dr Fernandez, in 2 weeks. VNA services were arrranged. Time Spent with Patient Time attestation: Total time spent providing and/or coordinating discharge services: 40 Discharge coordination time: Greater than 30 minutes Quality: Stroke Does the patient have a stroke diagnosis?: No Physical Exam Vital Signs: Vital Signs: Last Vital Signs Temp 97.4 F 03/27/21 08:00 Pulse 77 03/27/21 09:50 Resp 17 03/27/21 08:00 BP 168/72 H 03/27/21 09:50 Pulse Ox 90 L 03/27/21 08:00 Body Mass Index 24.6 Gen: coughing, somewhat tachypneic HEENT: sclera anicteric, moist mucus membranes Neck: supple Lungs: tachypneic, diminished on R with a few inspiratory crackles Heart: regular rate and rhythm, no murmurs Abd: soft, non-tender, non-distended Ext: no edema Skin: warm/well-perfused Neuro: alert and oriented x3, no focal findings Psych: appropriate affect DS: Data Data Completed and Pending Completed studies during hospitalization [Text1]: Laboratory Results WBC 15.7 X10*3/uL (4.8-10.8) H 03/26/21 05:11 RBC 3.89 X10*6/uL (4.20-5.50) L 03/26/21 05:11 Hgb 10.8 g/dl (12.0-16.0) L 03/26/21 05:11 Hct 34.7 % (37-47) L 03/26/21 05:11 MCV 89.2 fL (80-98) 03/26/21 05:11 MCH 27.8 pg (27.0-33.0) 03/26/21 05:11 MCHC 31.1 g/dl (31.0-35.0) 03/26/21 05:11 RDW 14.7 % (11.0-16.0) 03/26/21 05:11 Plt Count 418 X10*3/uL (160-400) H D 03/26/21 05:11 MPV 9.1 fL (9.4-12.3) L 03/26/21 05:11 Immature Gran % (Auto) 0.7 % (0.0-0.4) H 03/23/21 12:44 Neut % (Auto) 73.3 % (45-73) H 03/23/21 12:44 Lymph % (Auto) 14.8 % (20-40) L 03/23/21 12:44 Branch % (Auto) 10.0 % (2-11) 03/23/21 12:44 Eos % (Auto) 0.8 % (0-4) 03/23/21 12:44 Baso % (Auto) 0.4 % (0-2) 03/23/21 12:44 Lymph # (Auto) 1.7 X10*3/uL (1.2-4.9) 03/23/21 12:44 Branch # (Auto) 1.1 X10*3/uL (0.1-1.2) 03/23/21 12:44 Eos # (Auto) 0.1 X10*3/uL (0.0-0.4) 03/23/21 12:44 Baso # (Auto) 0.0 X10*3/uL (0.0-0.2) 03/23/21 12:44 Abs Immat Gran (auto) 0.08 X10*3/uL (0.00-0.03) H 03/23/21 12:44 Absolute Neuts (auto) 8.4 X10*3/uL (2.0-8.3) H 03/23/21 12:44 Absolute Nucleated RBC 0.000 X10*3/uL (0.0-0.012) 03/26/21 05:11 Nucleated RBC % (auto) 0.0 /100WBC (0.0-0.2) 03/26/21 05:11 D-Dimer 433 NG/ML 03/23/21 12:44 O2 Saturation 89.0 % 03/23/21 12:45 ABG pH at Pt Temp 7.45 (7.35-7.45) 03/23/21 12:45 ABG pH (Temp Correct) 7.44 (7.35-7.45) 03/23/21 12:45 ABG pCO2 at Pt Temp 36 mmHg (32-45) 03/23/21 12:45 ABG pCO2 (Temp Corrct 37 mmHg (32-45) 03/23/21 12:45 ABG pO2 at Pt Temp 61 mmHg (83-108) L 03/23/21 12:45 ABG pO2 (Temp Correct 64 (83-108) L 03/23/21 12:45 ABG HCO3 25 mmol/L (22-26) 03/23/21 12:45 ABG Base Excess (Actual) 2.0 mmol/L 03/23/21 12:45 Sodium 142 mmol/L (135-145) 03/26/21 05:11 Potassium 4.5 mmol/L (3.3-5.1) 03/26/21 05:11 Chloride 102 mmol/L (96-108) 03/26/21 05:11 Carbon Dioxide 32 mmol/L (22-29) H 03/26/21 05:11 Anion Gap 13 (12-20) 03/26/21 05:11 BUN 23 mg/dL (9-16) H 03/26/21 05:11 Creatinine 0.66 mg/dL (0.5-1.4) 03/26/21 05:11 Estim Creat Clear Calc 75.3 03/26/21 05:11 Estimated GFR > 60 03/26/21 05:11 Random Glucose 140 mg/dL (60-115) H 03/26/21 05:11 Lactic Acid 1.7 mmol/L (0.5-2.0) 03/23/21 12:44 Calcium 8.7 mg/dL (8.4-10.2) 03/26/21 05:11 Magnesium 2.1 mg/dL (1.6-2.6) 03/23/21 12:44 Total Bilirubin 0.2 mg/dL (0.0-1.0) 03/25/21 08:24 Direct Bilirubin 0.3 mg/dL (0.0-0.5) 03/23/21 12:44 AST 30 U/L (5-31) 03/25/21 08:24 ALT 44 U/L (0-31) H 03/25/21 08:24 Alkaline Phosphatase 209 U/L (39-117) H 03/25/21 08:24 Troponin I High Sens 39.1 ng/L (<3.5-17.0) H* 03/23/21 16:10 B-Natriuretic Peptide 118 pg/mL (<100) H 03/23/21 12:44 Total Protein 6.1 g/dL (6.5-8.0) L 03/25/21 08:24 Albumin 3.5 g/dL (3.5-5.0) 03/25/21 08:24 Procalcitonin 0.03 ng/mL 03/26/21 05:11 Coronavirus (PCR) NEGATIVE (Negative) 03/23/21 12:44 Influenza Type A (PCR) NEGATIVE (Negative) 03/23/21 12:44 Influenza Type B (PCR) NEGATIVE (Negative) 03/23/21 12:44 RSV RNA Qual (PCR) NEGATIVE (Negative) 03/23/21 12:44 Impressions Chest X-Ray 03/23/21 12:15 IMPRESSION: 1. Subtle bibasilar airspace opacities, new from CT lung screening 2020. 2. Coarsening bronchiolar markings, chronic hyperinflation. 3. Heart size normal. Vascularity unremarkable. Chest CTA 03/23/21 14:20 IMPRESSION: Diffuse centrilobular emphysema without any acute pneumonic process. There is bibasilar small consolidation greater on the right side and/or atelectasis. Addition there is subpleural right middle lobe platelike linear atelectasis No evidence of PE or aortic dissection. VTE: negative Labs on day of discharge: Preliminary micro results at discharge 03/23/21 12:46 Blood Culture - Preliminary Blood - Venous No growth after 48 hours. 03/23/21 12:44 Blood Culture - Preliminary Blood - Venous No growth after 48 hours. Discharge Plan Discharge Patient Disposition: Home Health Service Discharge Diagnosis: hypoxia, COPD, pneumonia Referrals: Trenton Fernandez MD [Physician] - 2 Weeks Shay Bryant PA-C [Primary Care Provider] - 1 Week Discharge Medications: New cefuroxime axetil 500 mg tablet 500 mg PO Q12H Qty: 4 RF: 0 azithromycin 500 mg tablet 500 mg PO DAILY 2 Days Qty: 2 RF: 0 prednisone 10 mg tablet See Rx Instructions .ROUTE .COMPLEX Qty: 15 RF: 0 Continued calcium carbonate [Oyster Shell Calcium 500] 500 mg calcium (1,250 mg) tablet 500 mg PO DAILY 90 Days Qty: 90 RF: 2 cholecalciferol (vitamin D3) 50 mcg (2,000 unit) capsule 50 mcg PO DAILY 90 Days Qty: 90 RF: 2 lisinopril 5 mg tablet 5 mg PO DAILY Qty: 90 RF: 0 Incruse Ellipta 62.5 mcg/actuation blister with device 1 inh PO DAILY Qty: 30 RF: 3 diphenhydramine HCl 25 mg Tablet 25 mg PO BEDTIME RF: 0 alendronate 70 mg tablet 70 mg PO MO RF: 0 albuterol sulfate 90 mcg/actuation HFA aerosol inhaler 2 puff inhalation Q4-6H PRN (Reason: shortness of breath or wheezing) 30 Days Qty: 8.5 RF: 2 Discharge Orders: Discharge Order (Routine); Ordered 03/27/21 Ordered By: Mac Kingston Diet: advance to usual diet and low salt diet Activity on Discharge: As tolerated Stand Alone Forms: Patient Portal Discharge page Care Plan Goals: lung health cure of pneumonia avoidance of hospitalization Health Concerns: hypoxia COPD exacerbation pneumonia Plan of Treatment: oxygen: 1L at rest, 6L with ambulation prednisone taper as follows: 4 tabs (40 mg) daily x 2 days, then 2 tabs (20 mg) daily x 2 days, then 1 tab (10 mg) daily x 2 days, then half tab (5 mg) daily x 2 days cefuroxime 500 mg twice daily x 2 days, plus azithromycin 500 mg once daily x 2 days follow up with primary care doctor in 1 week follow up with dispatch manager in 2 weeks Assessment: see Discharge Summary Patient Instructions: Using Oxygen at Home (DC), COPD (Chronic Obstructive Pulmonary Disease) (DC)
--- NOTE | 2021-03-27 13:36 | MHC.CM.PN ---
IMM 03/27/21, PT DISCHARGING HOME W/[facility] FOR HOME PT AND SN FOR NEW O2, FAMILY FOR TRANSPORT.
== END 2021-03-27 14:47 | disposition home health service (06) | DRG 193 ==
LOC: HO.ED 14:33 → HO.EDOVER 16:33 → HO.S3 20:31
PROVIDERS: Nurse Practitioner Family; Admitting Provider Hospitalist; Emergency Provider Emergency Medicine; PCP Physician Assistant; Visit Provider Family Medicine
DX: J18.9 Pneumonia, unspecified organism (principal); J96.01 Acute respiratory failure with hypoxia; J44.1 Chronic obstructive pulmonary disease with (acute) exacerbation; J44.0 Chronic obstructive pulmonary disease with (acute) lower respiratory infection; R91.8 Other nonspecific abnormal finding of lung field; Z20.822 Contact with and (suspected) exposure to COVID-19; Z87.891 Personal history of nicotine dependence; Z79.899 Other long term (current) drug therapy
CPT/HCPCS: 0241U; 36415; 71045; 71275; 80048; 80053; 80076; 82803; 83605; 83735; 83880; 84145; 84484; 85025; 85027; 85379; 87040; 93005; 94640; 96365; 96367; 96375; 97162; 99285; J0456; J0696; J1650; J2270; J2930; Q0163; Q9967

== ENCOUNTER → 2021-04-08 10:45 | Outpatient (BNVA) | payer OTHER, SELFPAY | PROVIDERS: PCP Physician Assistant; Visit Provider Internal Medicine ==

== ENCOUNTER 2021-04-16 08:55 | Outpatient (REF) | payer MEDICARE, SELFPAY ==
--- NOTE | 2021-04-16 11:24 | PFT_ITS ---
Forced vital capacity moderately reduced. FEV1, DNU83-78, and MVV are markedly reduced. Post bronchodilator therapy, there is no significant change. Total lung capacity is slightly increased and residual volume is markedly increased. Diffusion capacity is markedly decreased. CONCLUSION: The results are consistent with rather severe obstructive airway disorder. There is no significant response to bronchodilator therapy. There is evidence of air trapping. Compared to results of 12/25/2017, the diffusion capacity is further decreased. No other specific change. Trenton Fernandez MD MSB/MODL / [id number]
== END 2021-04-16 08:56 | disposition home or self-care (01) ==
LOC: HO.RESP 08:55
PROVIDERS: PCP Physician Assistant; Visit Provider Internal Medicine
DX: J44.9 Chronic obstructive pulmonary disease, unspecified (principal); R09.02 Hypoxemia
CPT/HCPCS: 94060; 94727; 94729

== ENCOUNTER → 2021-04-21 09:45 | Outpatient (BNVA) | payer MEDICARE, SELFPAY | PROVIDERS: PCP Physician Assistant; Visit Provider Internal Medicine | DX: J44.9 Chronic obstructive pulmonary disease, unspecified (principal); R06.02 Shortness of breath; Z87.891 Personal history of nicotine dependence | CPT/HCPCS: 99212 ==

== ENCOUNTER → 2021-05-19 10:11 | Outpatient (BNVA) | payer MEDICARE, SELFPAY | PROVIDERS: PCP Physician Assistant; Visit Provider Internal Medicine | DX: J44.9 Chronic obstructive pulmonary disease, unspecified (principal); R09.02 Hypoxemia | CPT/HCPCS: 99212 ==

== ENCOUNTER → 2021-08-17 10:59 | Outpatient (BNVA) | payer MEDICARE, SELFPAY | PROVIDERS: PCP Physician Assistant; Visit Provider Internal Medicine | DX: J43.9 Emphysema, unspecified (principal); R09.02 Hypoxemia; Z87.891 Personal history of nicotine dependence | CPT/HCPCS: 99212 ==

== ENCOUNTER → 2021-10-20 08:15 | Outpatient (BNVA) | payer MEDICARE, SELFPAY | PROVIDERS: PCP Physician Assistant; Visit Provider Internal Medicine | DX: M81.0 Age-related osteoporosis without current pathological fracture (principal); E55.9 Vitamin D deficiency, unspecified | CPT/HCPCS: Q3014 ==

== ENCOUNTER 2022-02-09 | Outpatient (REF) | payer MEDICARE, SELFPAY ==
--- NOTE | ~2022-02-09 | CT_ITS ---
EXAMINATION: CT CHEST SCREENING CLINICAL INFORMATION: Former smoker. Quit 4 years ago. 48 pack year history. COMPARISON: Previous chest CT scans most recent January and March 2021 TECHNIQUE: Multidetector volumetric CT imaging of the chest is performed without contrast using low dose technique. Additional 2D coronal and sagittal reformatted images and axial 3D maximum intensity projection (MIP) images are generated on the CT workstation. This CT examination was performed using dose optimization techniques as appropriate, variously including the following: *Automated exposure control *Adjustment of mA and/or kV according to patient size (this includes techniques or standardized protocols for targeted exams where dose is matched to indication/reason for exam; i.e. extremities or head) *Use of iterative reconstruction technique DLP: 37 mGy-cm FINDINGS: LUNGS: There is evidence of severe emphysema. There is interval increase in size in the spiculated nodule in the posterior segment of the right upper lobe. This measures 9 mm axial image 137 series 5 compared to 5 mm July 2020 exam. This has posterior adjacent satellite nodular spiculation measuring 4 x 6 mm axial image 136 series 5. Measured as 1 nodule this measures 9 x 14 mm axial image 136 series 5. There is a 4 mm semisolid superior segment left lower lobe nodule axial image 153 series 5 that is stable. There is a 3 mm calcified left lower lobe nodule axial image 378 series 5 that is stable. There is chronic scarring or subsegmental atelectasis in the right middle lobe and lingula. This is similar to previous exams. There is chronic linear scarring or subsegmental versus both lower lobes of the lung bases that is unchanged as well. There is new linear scarring or subsegmental atelectasis in the medial left upper lobe near the interhemispheric fissure for example axial image 93 series 5. This has a new nodular component superiorly measuring 4 mm axial image 87 series 5 and attention on follow-up is recommended. No endobronchial or endotracheal lesion is seen. MEDIASTINUM: Normal heart size. Coronary artery calcification. No pericardial effusion. Normal caliber thoracic aorta. No enlarged hilar or mediastinal lymph nodes. PLEURA: No pleural effusion or pleural thickening. Bilateral posterior diaphragmatic hernias containing fat. AXILLA: No lymphadenopathy. UPPER ABDOMEN: Unremarkable OSSEOUS STRUCTURES: Unremarkable. CT/CT lung screening IMPRESSION: Severe emphysema. Interval increase in the nodule in the posterior segment of the right upper lobe measuring 9 x 14 mm. Other small stable nodules. Increasing scarring or subsegmental atelectasis in the medial left upper lobe with new 4 mm nodular component and attention on follow-up is recommended. Otherwise small pulmonary nodules and areas of chronic segmental atelectasis or scarring are stable. Coronary artery calcification.. ASSESSMENT: Lung-RADS category 4B: Suspicious RECOMMENDATION: PET/CT scan or tissue sampling recommended.
== END 2022-02-09 00:01 ==
LOC: HO.CT
PROVIDERS: PCP Physician Assistant; Visit Provider Surgery
DX: Z87.891 Personal history of nicotine dependence (principal)
CPT/HCPCS: 71271

== ENCOUNTER → 2022-02-18 10:13 | Outpatient (BNVA) | payer MEDICARE, SELFPAY | PROVIDERS: PCP Physician Assistant; Visit Provider Surgery | DX: R91.1 Solitary pulmonary nodule (principal) | CPT/HCPCS: 99212 ==

== ENCOUNTER → 2022-02-22 10:16 | Outpatient (BNVA) | payer MEDICARE, SELFPAY | PROVIDERS: PCP Physician Assistant; Visit Provider Internal Medicine | DX: R09.02 Hypoxemia (principal); J43.9 Emphysema, unspecified; R91.1 Solitary pulmonary nodule; Z79.899 Other long term (current) drug therapy; Z99.81 Dependence on supplemental oxygen | CPT/HCPCS: 99212 ==

== ENCOUNTER 2022-03-01 08:08 | Outpatient (REF) | payer MEDICARE, SELFPAY ==
--- NOTE | ~2022-03-01 | PE_ITS ---
EXAMINATION: Fluorine-18 FDG PET/CT Scan CLINICAL INDICATION: Initial treatment management.. Pulmonary nodule. PROCEDURE: 58 minutes following the intravenous administration of 11.8 mCi of fluorine 18 FDG, images from the base of the skull to the mid thighs were obtained using a combined PET/CT scanner with CT scan based attenuation correction. No oral contrast was administered. No intravenous contrast was administered. Transverse, coronal, sagittal, and volume reconstruction projections were obtained. The patient's blood glucose as determined by a finger stick, was 79 mg/dl immediately prior to injection. Total CT exam dose-length product 359.89 mGy-cm * These CT images were obtained using dose optimization techniques as appropriate, variously including the following: Automated exposure control * Adjustment of mA and/or kV according to patient size (this includes techniques or standardized protocols for targeted exams where dose is matched to indication/reason for exam; i.e. extremities or head) * Use of iterative reconstruction technique COMPARISON: No previous PET/CT scan is available for comparison. CT of the chest dated 02/09/2022 is available for comparison. FINDINGS: (Slice numbers described in this report are numbered superiorly to inferiorly with slice #1 in the head) . NECK AND VISUALIZED HEAD: There is extensive FDG uptake in adipose tissues in the supraclavicular regions bilaterally and in the neck, all likely due to physiological brown fat uptake. There is associated costovertebral activity which is more prominent on the right but is also likely due to physiological brown fat uptake. No suspicious foci of abnormal FDG activity are noted. The distribution of FDG activity is physiological. There is no cervical lymphadenopathy. THORAX: There is abnormal FDG activity in the previously visualized spiculated right upper lobe pulmonary nodule, SUVmax 6.4, slice 78/267. On the CT images this measures 1.3 x 0.8 cm in largest transverse dimensions and approximately 1.1 cm cephalocaudad. It does not appear significantly changed from the diagnostic CT scan dated 02/09/2022. No additional foci of abnormal FDG activity are present in the chest. Some mediastinal adipose tissue shows FDG activity which is likely due to additional foci of physiological brown fat uptake. Several small subcentimeter nodules visualized on the diagnostic 02/09/2022 CT scan are not apparent on these nondiagnostic CT images, and all of those nodules are much too small to be characterized on the FDG PET images. Severe emphysema is noted and there is some scarring or atelectasis in the right middle lobe and posteriorly at the right lung base and also in the lingula, also unchanged from 02/09/2022 and showing no abnormal FDG activity. There is no mediastinal, axillary, or supraclavicular lymphadenopathy. There is no pleural or pericardial fluid or pneumothorax. ABDOMEN AND PELVIS: There are no foci of abnormal FDG activity in the abdomen or pelvis. The liver, gallbladder, spleen comment kidneys, adrenal glands, and pancreas appear unremarkable. There is no retroperitoneal, mesenteric, pelvic or inguinal lymphadenopathy. There is mild FDG activity in the gastrointestinal tract without a suspicious focal component, and there is diverticulosis without evidence of diverticulitis. The hollow viscera are otherwise unremarkable. The pelvic organs are unremarkable. MUSCULOSKELETAL: No foci of abnormal FDG activity are present in the osseous structures. There is a mild thoracolumbar scoliosis with upper lumbar convexity to the left. There are degenerative changes in the spine and a compression fracture at T4, previously visualized on 08/06/2020 and showing no abnormal FDG activity. There are no suspicious sclerotic or lytic lesions visualized. VASCULAR: Vascular calcifications including dense coronary calcifications are noted. PET/PET CT fusion skull to thigh IMPRESSION: 1. Abnormal FDG activity in a spiculated right upper lobe pulmonary nodule is strongly suspicious for malignancy. 2. A few additional small subcentimeter nodules visualized on the diagnostic 02/09/2022 CT scan are not apparent on these nondiagnostic CT images, and all of these are much too small to be resolved on the FDG PET images. 3. No additional abnormalities suspicious for metastatic or other malignant lesions are noted. 4. Vascular calcifications including dense coronary calcifications are noted.
== END 2022-03-01 08:09 | disposition home or self-care (01) ==
LOC: HO.PET 08:08
PROVIDERS: Visit Provider Surgery
DX: Z13.89 Encounter for screening for other disorder (principal)

== ENCOUNTER 2022-04-14 09:37 | Outpatient (REF) | payer MEDICARE, SELFPAY ==
[2022-04-14 11:13] LABS: Alanine Aminotransferase 29 U/L (0-31); Albumin Level 4.5 g/dL (3.5-5.0); Alkaline Phosphatase 107 U/L (39-117); Anion Gap 16 (12-20); Aspartate Amino Transferase 23 U/L (5-31); Bilirubin Total 0.5 mg/dL (0.0-1.0); Blood Urea Nitrogen 19 mg/dL (9-16); Calcium 9.8 mg/dL (8.4-10.2); Carbon Dioxide 29 mmol/L (22-29); Chloride 102 mmol/L (96-108); Estimated Glomerular Filt Rate > 60; Glucose Random 87 mg/dL (60-115); Phosphorus 3.9 mg/dL (2.7-4.5); Potassium 4.7 mmol/L (3.3-5.1); Sodium 142 mmol/L (135-145); Total Protein 7.1 g/dL (6.5-8.0)
[2022-04-14 11:40] LABS: Thyroid Stimulating Hormone 0.85 uIU/mL (0.32-4.0); Vitamin D 25-OH Total 29.2 ng/mL (>30)
[2022-04-18 07:26] LABS: Calcium, Ionized 4.9 mg/dL (4.8-5.6)
[2022-04-18 12:42] LABS: Calcium (PTHI) 9.6 mg/dL (8.6-10.4); PTHI 66 pg/mL (16-77)
[2022-04-18 14:25] LABS: Alkaline Phosphatase Bone 13.4 mcg/L (5.6-29.0)
[2022-04-19 12:03] LABS: Prot Elec - Albumin 4.3 g/dL (3.8-4.8); Prot Elec - Alpha1 0.3 g/dL (0.2-0.3); Prot Elec - Beta 1 0.5 g/dL (0.4-0.6); Prot Elec - Beta 2 0.4 g/dL (0.2-0.5); Prot Elec - Gamma 0.6 g/dL (0.8-1.7)
== END 2022-04-14 09:38 | disposition home or self-care (01) ==
LOC: HO.LAB 09:37
PROVIDERS: Absent Provider Internal Medicine; PCP Physician Assistant; Visit Provider Physician Assistant
DX: M81.0 Age-related osteoporosis without current pathological fracture (principal); E55.9 Vitamin D deficiency, unspecified
CPT/HCPCS: 36415; 80053; 82306; 82330; 83970; 84075; 84100; 84165; 84439; 84443

== ENCOUNTER → 2022-05-13 09:21 | Outpatient (BNVA) | payer MEDICARE, SELFPAY | PROVIDERS: PCP Physician Assistant; Visit Provider Surgery | DX: R91.1 Solitary pulmonary nodule (principal); C34.11 Malignant neoplasm of upper lobe, right bronchus or lung | CPT/HCPCS: 99212 ==

== ENCOUNTER 2022-05-14 09:25 | Outpatient (REF) | payer MEDICARE, SELFPAY ==
--- NOTE | ~2022-05-14 | MM_ITS ---
EXAMINATION: MM SCREENING DIGITAL BREAST TOMOSYNTHESIS, BILATERAL CLINICAL INFORMATION: Screening. Asymptomatic. The lifetime risk of breast cancer based on the Tyrer-Cuzick Model is 5%. COMPARISON: Mammography: 12/01/2020, 07/30/2019, 05/29/2018 TECHNIQUE: Digital breast tomosynthesis is performed in both the craniocaudal and mediolateral oblique views along with computer-aided detection (CAD). Synthesized 2D images are generated from the tomosynthesis. FINDINGS: There are scattered areas of fibroglandular density (ACR BI-RADS breast composition Category b). There are no significant masses, abnormal calcifications, or other abnormalities. Parenchymal pattern is similar to prior studies. There is no developing density or architectural abnormality. The axilla and skin contours are unremarkable. No significant changes. MM/MM tomosynthesis screening BI IMPRESSION: No mammographic evidence of malignancy. ASSESSMENT: BI-RADS 1: Negative RECOMMENDATION: Routine annual mammography screening. This patient's information was entered into a reminder system with a target due date for their next mammogram.
== END 2022-05-14 09:26 | disposition home or self-care (01) ==
LOC: HO.MAMMO 09:25
PROVIDERS: PCP Physician Assistant; Visit Provider Physician Assistant
DX: Z12.31 Encounter for screening mammogram for malignant neoplasm of breast (principal)
CPT/HCPCS: 77063; 77067

== ENCOUNTER → 2022-06-27 08:36 | Outpatient (BNVA) | payer MEDICARE, SELFPAY | PROVIDERS: PCP Physician Assistant; Visit Provider Internal Medicine | DX: M81.0 Age-related osteoporosis without current pathological fracture (principal); E55.9 Vitamin D deficiency, unspecified | CPT/HCPCS: 99212 ==

== ENCOUNTER → 2022-07-25 09:55 | Outpatient (BNVA) | payer MEDICARE, SELFPAY | PROVIDERS: PCP Physician Assistant; Visit Provider Internal Medicine | DX: J43.9 Emphysema, unspecified (principal); R09.02 Hypoxemia; C34.11 Malignant neoplasm of upper lobe, right bronchus or lung | CPT/HCPCS: 99212 ==

== ENCOUNTER → 2022-10-21 09:44 | Outpatient (BNVA) | payer MEDICARE, SELFPAY | PROVIDERS: PCP Physician Assistant; Visit Provider Surgery | DX: C34.11 Malignant neoplasm of upper lobe, right bronchus or lung (principal) | CPT/HCPCS: 99212 ==

== ENCOUNTER 2023-01-09 07:50 | Outpatient (AMB) | payer MEDICARE, SELFPAY ==
--- NOTE | 2023-01-09 07:50 | MHC.OFFVIS ---
Intake Intake Visit Reasons: F/U Osteoporosis Allergies No Known Allergies Allergy (Verified 01/09/23 08:21) Medication List - Last Reconciled 01/09/23 by Kavya Padron DO albuterol sulfate 90 mcg/actuation 2 puffs inhalation Q4-6H PRN 30 days calcium carbonate (Oyster Shell Calcium 500) 500 mg PO DAILY 90 days cholecalciferol (vitamin D3) 50 mcg PO DAILY 90 days diphenhydramine HCl 25 mg PO BEDTIME fluticasone furoate-vilanterol 200-25 mcg/dose (Breo Ellipta) 1 ea PO DAILY Incruse Ellipta 62.5 mcg/actuation (umeclidinium) 1 inh PO DAILY NS lisinopril 5 mg PO DAILY 90 days HPI HPI Comments History of Present Illness Details 71 YO Female with PMHx of Hyperparathyroidism, s/p a single gland parathyroidectomy in 2004 and Osteoporosis who is seen in F/U. Of note, she was recently diagnosed with adenocarcinoma of the lung and completed radiation therapy. First diagnosed with Osteoporosis many years ago, she does not recall. Was treated with Alendronate from 2020-mid 2021. We stopped her Alendroante after her initial visit with me in order to complete a biochemical evaluation for secondary causes of Osteoporosis. Blood work was negative for any secondary causes and her hyperparathyroidism appears to be cured. No history of pathologic fracture or ONJ. Has 2-3 servings of dietary calcium per day in the form of cheese. Takes Calcium supplement 500 mg daily. Takes 2000 IU of Vitamin D daily. Uses glucocorticoids occasionally for COPD flares. Denies ever using PPI, anticoagulant, or antiepileptic medication. Does weight bearing exercise 5 days per week in the form of walking. Fracture history: Denies Height loss: 0.5 inch AUTOMATION TESTER history: Menarche was age 15. Menses was always regular. She is . She breastfed 6 months in total. Menopause was age 57. She did use HRT for 1 year. Denies history of Kidney stones. Has a family history of Osteoporosis in her Grandmother and Mother. UTD on dental cleanings and sees dentist every 6 months. No planned upcoming dental work or extractions. DXA: 12/01/2020 FINDINGS: AP SPINE L1-L3 (excluding L4): The data of L1-L4 has been changed to exclude the L4 vertebral body, because levocurvature and degenerative changes at this level may cause overestimation of lumbar spine density. BMD 0.748 g/cm2, Z-score -2.0, T-score -3.5, osteoporosis. LEFT FEMUR, NECK: BMD 0.686 g/cm2, Z-score -1.0, T-score -2.5, osteoporosis. LEFT FEMUR, TOTAL: BMD 0.718 g/cm2, Z-score -1.0, T-score -2.3, osteopenia. Labs: Laboratory Tests 04/14/22 04/14/22 04/14/22 10:01 10:01 10:01 Sodium 142 Potassium 4.7 Creatinine 0.79 Estimated GFR > 60 Phosphorus 3.9 Alkaline Phosphata se 107 D Alk Phos Bone Spec ific 13.4 Albumin 4.5 D PEP Interpretation SEE NOTE 25-OH Vitamin D To staci 29.2 TSH 0.85 Free T4 1.20 PTH Intact 66 Calcium (PTH Intac t) 9.6 PFSH Medical History Community acquired pneumonia COPD (chronic obstructive pulmonary disease) HTN (hypertension) Hypoxemia Osteoporosis Personal history of nicotine dependence Pulmonary nodule Vitamin D deficiency Surgical History History of parathyroidectomy (~2007) Family History Father No problems noted. Mother No problems noted. Social History Household Members: Spouse and Family Household Members Other:: daughter and her friend Housing: House Do you presently have visiting nurse or other home services: No Alcohol intake: current Alcohol intake frequency: holidays/special occasions only Patient Tobacco Use Status: Former Tobacco user Tobacco use type: Cigarette Years Smoked: 30 e-Cigarette/Vaping Use: Never Used Second Hand Smoke Exposure: Yes service: No Current occupational status: retired Cognitive needs: No Hearing needs: No Vision needs: Yes Assessment & Plan Assessment & Plan (1) Osteoporosis: Comment: (Bone Dexa Lumbar T-score: -3.5 on 11/2020) Code(s): M81.0 - Age-related osteoporosis without current pathological fracture Qualifiers: Osteoporosis type: age-related Presence of current pathological fracture: without current pathological fracture Qualified Code(s): M81.0 - Age-related osteoporosis without current pathological fracture Plan: Patient with severe Osteoporosis of the spine and Osteoporosis of the hip. She has a history of hyperparathyroidism. Blood work reveals no evidence of any secondary causes of Osteoporosis. She has not completed her 24 hour urine collection, so I have asked her to complete that now. We will also repeat her basic labs and DXA.I will call her with results and to discuss treatment options. If 24 hour urine collection is WNL, we will discuss IV Reclast vs IM Prolia. She will then F/U in 3 months time. We have reviewed fall precautions and I did advise that she is high risk for a fracture. All of her questions were answered. She is in agreement with this plan of care. I spent 20 minutes in reviewing the record, seeing the patient and documenting in the medical record, including 5 minutes on the phone with the Patient. (2) Vitamin D deficiency: Code(s): E55.9 - Vitamin D deficiency, unspecified Plan: Will repeat levels now to reassess. Orders: Orders Calcium, 24 Hr Ur Today M81.0 - Age-related osteoporosis without current pathological fracture Creatinine, 24 Hr Group Today M81.0 - Age-related osteoporosis without current pathological fracture Alkaline Phosphatase Bone Today M81.0 - Age-related osteoporosis without current pathological fracture Comprehensive Met. Panel Today M81.0 - Age-related osteoporosis without current pathological fracture Phosphorus Today M81.0 - Age-related osteoporosis without current pathological fracture PTHI Today M81.0 - Age-related osteoporosis without current pathological fracture Vitamin D 25-OH Total Today E55.9 - Vitamin D deficiency, unspecified Collagen Crosslinks NTX Today M81.0 - Age-related osteoporosis without current pathological fracture XR DEXA appendicular skeleton Today M81.0 - Age-related osteoporosis without current pathological fracture XR DEXA axial skeleton Today M81.0 - Age-related osteoporosis without current pathological fracture Telehealth Telehealth Location of provider rendering services: practice address Location of patient: address on file Patient Identification confirmed using: Name, : Yes Telehealth method: voice only Patient verbally consented to treatment: Yes Patient verbally consented to billing insurance company: Yes Patient informed of any privacy concerns related to visit: Yes Coding Level of Care Code Tele Est Pt Level 3 (00008) Diagnoses Osteoporosis M81.0 Osteoporosis type: age-related Presence of current pathological fracture: without current pathological fracture Vitamin D deficiency E55.9
== END 2023-01-09 08:30 | disposition home or self-care (01) ==
LOC: HO.ENCR 07:50
PROVIDERS: PCP Physician Assistant; Visit Provider Internal Medicine
DX: M81.0 Age-related osteoporosis without current pathological fracture (principal); E55.9 Vitamin D deficiency, unspecified
CPT/HCPCS: 99441

== ENCOUNTER → 2023-01-09 07:50 | Outpatient (BNVA) | payer MEDICARE, SELFPAY | PROVIDERS: PCP Physician Assistant; Visit Provider Internal Medicine ==

== ENCOUNTER 2023-01-16 11:33 | Outpatient (REF) | payer MEDICARE, SELFPAY ==
[2023-01-16 13:15] LABS: Creatinine, mg/dL 54.04
[2023-01-16 19:53] LABS: Creatinine, 24Hr Urine 0.5 G/Day (1.0-2.0); Total Volume 24 Hour Urine 925 mL
[2023-01-17 19:59] LABS: Calcium, 24 Hr Urine 78 mg/24 h; Calcium/Creatinine Ratio 156 mg/g creat (30-275)
[2023-01-20 07:48] LABS: N-Telopeptide 28 (see note); NTXCreaRU 65 mg/dL (20-275)
== END 2023-01-16 11:34 | disposition home or self-care (01) ==
LOC: HO.LNP 11:33
PROVIDERS: Visit Provider Internal Medicine
DX: M81.0 Age-related osteoporosis without current pathological fracture (principal)
CPT/HCPCS: 82340; 82523; 82570

== ENCOUNTER 2023-01-17 09:43 | Outpatient (AMB) | payer MEDICARE, SELFPAY ==
[2023-01-17 09:52] VITALS: BP 112/70; PULSE 81; O2SAT 95; BMI 24.0
--- NOTE | 2023-01-17 09:52 | A.OFFVIS_ITS ---
Intake Vital Signs 01/17/23 09:52 Height 5 ft 6 in Weight 149 lb BMI 24.0 BP 112/70 Blood Pressure Location Lt brachial Position Sitting Pulse 81 Pulse Source Pulse Oximeter Pulse Oximetry (%) 95 Oxygen Delivery Method Room Air Intake Visit Reasons: hypoxia Intake Note: pt is here for follow up and states she has been feeling good, she is retired a nd feeling great. Sql Application Developer Required: No Allergies No Known Allergies Allergy (Verified 01/17/23 10:15) Medication List - Last Reconciled 01/17/23 by Trenton Fernandez MD albuterol sulfate 90 mcg/actuation 2 puffs inhalation Q4-6H PRN 30 days Breo Ellipta 200-25 mcg/dose (fluticasone furoate-vilanterol) 1 ea PO DAILY NS calcium carbonate (Oyster Shell Calcium 500) 500 mg PO DAILY 90 days cholecalciferol (vitamin D3) 50 mcg PO DAILY 90 days diphenhydramine HCl 25 mg PO BEDTIME Incruse Ellipta 62.5 mcg/actuation (umeclidinium) 1 inh PO DAILY NS lisinopril 5 mg PO DAILY 90 days Do you need a note to return to daycare/school/sports/work: No HPI hypoxia HPI Details This 72 years old very pleasant female, ex-smoker, with moderately severe obstructive airway disorder, and nocturnal hypoxemia, .Comes for follow-up after 6 months She has had radiation therapy treatment for nodule in the right upper lobe, which has resolved. Breathing martin remaining very stable, except for getting short of breath on exertion. At night she uses O2 2 L/minute but does not need to use during the daytime. She is retired from her regular work but still does part-time type of work at [employer] , and is happy. [facility] Medical History Community acquired pneumonia COPD (chronic obstructive pulmonary disease) HTN (hypertension) Hypoxemia Osteoporosis Personal history of nicotine dependence Pulmonary nodule Vitamin D deficiency Surgical History History of parathyroidectomy (~2007) Family History Father No problems noted. Mother No problems noted. Social History Household Members: Spouse and Family Household Members Other:: daughter and her friend Housing: House Do you presently have visiting nurse or other home services: No Alcohol intake: current Alcohol intake frequency: holidays/special occasions only Patient Tobacco Use Status: Former Tobacco user Tobacco use type: Cigarette Years Smoked: 30 e-Cigarette/Vaping Use: Never Used Second Hand Smoke Exposure: Yes service: No Current occupational status: retired Cognitive needs: No Hearing needs: No Vision needs: Yes Review of Systems Const All systems reviewed & are unremarkable except as noted in HPI and below Eyes Reports no additional complaints ENT Reports no additional complaints Card Denies chest pain, Denies irregular heart rhythm and Denies leg edema Resp Reports as per HPI GI Reports no additional complaints Reports no additional complaints Musc Reports no additional complaints Skin/Breast Reports system reviewed and no additional complaints, except as documented Neuro Reports no additional complaints Psych Reports no additional complaints Physical Exam Vital Signs: Last Vital Signs Pulse 81 01/17/23 09:52 BP 112/70 01/17/23 09:52 Pulse Ox 95 01/17/23 09:52 Oxygen Delivery Method Room Air 01/17/23 09:52 BMI result Body Mass Index 24.0 Const General: healthy appearing, comfortable, no acute distress, alert and awake Orientation/consciousness: patient oriented x3 HEENT Head: Yes normal to inspection General nose exam: No nasal polyps present and No nasal discharge present Face and sinus: Yes sinuses nontender Mouth: oropharynx normal Throat: Yes posterior oropharynx normal Eyes General: appearance normal, both eyes and all related structures Neck Neck: Yes normal visual inspection, Yes no lymphadenopathy, Yes trachea midline and Yes no JVD Thyroid: Thyroid normal Chest Chest palpation & inspection: normal inspection of the chest, normal palpation of entire chest wall and no tenderness Resp Other: Percussion note hyper-resonant, breath sounds are distant with prolonged expiratory phase. No wheezes rhonchi or crepitations are heard. Percussion: other Cardio Palpation: normal PMI Rate: regular rate Rhythm: regular rhythm Heart sounds: no gallops and no murmurs GI Palpation (GI): Soft to palpation, nontender, No hepatosplenomegaly present and no masses Auscultation: normal bowel sounds Back/Spine/Pelvis Thoracic/Lumbar Spine: thoracic and lumbar spine normal to inspection Skin General skin exam: no rashes or lesions noted Neuro General: patient oriented x3 and no focal motor deficits Cranial nerves: Yes CN's II-XII intact bilaterally Extrem General: Yes normal to inspection, Yes no clubbing, cyanosis or edema and Yes no calf tenderness Psych Appearance: grossly normal and well kempt Speech and movement: Normal speech and movement present Assessment & Plan Assessment & Plan (1) COPD (chronic obstructive pulmonary disease): Comment: Known case of severe chronic obstructive pulmonary disorder. As per spirometry, her COPD is very severe, but stable. Currently doing very well. TX: Continue : Incruse Ellipta 1 puff daily. Breo 200-25 1 inhalation daily And albuterol HFA 2 puffs Q 4-6 hours only p.r.n. Continue to do deep breathing exercises 2 or 3 times every day. Code(s): J44.9 - Chronic obstructive pulmonary disease, unspecified Qualifiers: COPD type: emphysema Emphysema type: unspecified Qualified Code(s): J43.9 - Emphysema, unspecified (2) Hypoxemia: Comment: She is known to have Nocturnal Hypoxemia + exercise induced hypoxemia. TX : O2 2 L/minute at night and p.r.n. during the daytime. Does have portable unit but does not need with her usual day-to-day activity. ) Code(s): R09.02 - Hypoxemia (3) Cancer of upper lobe of right lung: Comment: Patient had biopsy of a pulmonary nodule in right upper lobe, which was growing in size. Biopsy positive for adeno carcinoma. Patient not a good surgical risk. Has been treated with R/Th x 5 sessions with resolution of the nodule. Code(s): C34.11 - Malignant neoplasm of upper lobe, right bronchus or lung (4) Personal history of nicotine dependence: Comment: She has smoked 1 pack a day for 30 years. Quit smoking since start of this year ( 2021 ) Her who was a smoker has also stop smoking, so she would have no exposure to secondhand smoking. Patient did have low dose CT scan in July 2020, Neg. Code(s): Z87.891 - Personal history of nicotine dependence Coding Level of Care Code Est Pt Level 3 (54452) Diagnoses COPD (chronic obstructive pulmonary disease) J43.9 COPD type: emphysema Emphysema type: unspecified Hypoxemia R09.02 Cancer of upper lobe of right lung C34.11 Personal history of nicotine dependence Z87.308
== END 2023-01-17 10:14 | disposition home or self-care (01) ==
PROVIDERS: PCP Physician Assistant; Visit Provider Internal Medicine
DX: J43.9 Emphysema, unspecified (principal); R09.02 Hypoxemia; C34.11 Malignant neoplasm of upper lobe, right bronchus or lung; Z87.891 Personal history of nicotine dependence
CPT/HCPCS: 99213

== ENCOUNTER → 2023-01-17 09:43 | Outpatient (BNVA) | payer MEDICARE, SELFPAY | PROVIDERS: Visit Provider Internal Medicine | DX: J43.9 Emphysema, unspecified (principal); R09.02 Hypoxemia; C34.11 Malignant neoplasm of upper lobe, right bronchus or lung; Z87.891 Personal history of nicotine dependence | CPT/HCPCS: 99212 ==

== ENCOUNTER 2023-01-18 09:07 | Outpatient (REF) | payer MEDICARE, SELFPAY ==
--- NOTE | ~2023-01-18 | MM_ITS ---
EXAMINATION: BONE DENSITOMETRY CLINICAL INDICATION: Osteoporosis. COMPARISON: Baseline BD dated 12/01/2020. TECHNIQUE: Using a [employer] DXA System (software version: 13.1) manufactured by [employer], dual-energy x-ray absorptiometry was performed of the lumbar spine, left hip, and left forearm radius 33%. The images are of good technical quality. Summary results are attached. FINDINGS: LEFT FEMUR, NECK: Current: BMD 0.714 g/cm2, Z-score -0.7, T-score -2.3, osteopenia. Baseline: BMD 0.686 g/cm2. LEFT FEMUR, TOTAL: Current: BMD 0.719 g/cm2, Z-score -0.9, T-score -2.3, osteopenia, 0.1% increase from baseline (<5% change is not significant). Baseline: BMD 0.718 g/cm2. AP SPINE L1-L3 (excluding L4): The data of L1-L4 has been changed to exclude the L4 vertebral body, because degenerative sclerosis at this level may cause overestimation of lumbar spine density. Current: BMD 0.750 g/cm2, Z-score -1.9, T-score -3.5, osteoporosis, 0.3% increase from baseline (<5% change is not significant). Baseline: BMD 0.748 g/cm2. LEFT FOREARM RADIUS 33%: BMD 0.590 g/cm2, Z-score -1.4, T-score -3.3, osteoporosis. IDENTIFIED RISK FACTORS: Menopause, osteoporosis, hyperparathyroidism. HISTORY OF FRACTURE: None listed. MEDICATIONS: Calcium, vitamin D. MM/XR DEXA appendicular skeleton IMPRESSION: 1. DIAGNOSIS: Osteoporosis based on the lowest T-score value of -3.5 in the lumbar spine applying World Health Organization criteria. 2. 10-YEAR FRACTURE RISK PREDICTION, FRAX: According to the guidelines, FRAX calculation should only be performed on patients in the osteopenia bone density category. Therefore, FRAX was not performed on this patient. 3. Treatment Recommendations: NOF guidelines recommend consideration for treatment in postmenopausal women and men age 50 and older presenting with the following: -A hip or vertebral (clinical or morphometric) fracture. -T-score less than or equal to -2.5 at the femoral neck or spine after appropriate evaluation to exclude secondary causes. -Low bone mass at the hip or spine and a 10-year fracture probability by FRAX of greater than or equal to 3% for hip fracture or greater than or equal to 20% for major osteoporotic fracture based on the [place] adapted WHO algorithm. 4. Other Recommendations: All treatment decisions require clinical judgment and consideration of individual patient factors, including patient preferences, comorbidities, previous drug use, risk factors not captured in the FRAX model (e.g. frailty, falls, vitamin D deficiency, increased bone turnover, interval significant decline in bone density) and possible under or overestimation of fracture risk by FRAX. Additional medical evaluation for secondary cause of low bone mineral density may be appropriate. FUTURE SCAN RECOMMENDATION: People with diagnosed cases of osteoporosis or at high risk for fracture should have regular bone mineral density tests. For patients eligible for Medicare, routine testing is allowed once every 2 years. The testing frequency can be increased to one year for patients who have rapidly progressing disease, those who are receiving or discontinuing medical therapy to restore bone mass, or have additional risk factors.
== END 2023-01-18 09:08 | disposition home or self-care (01) ==
LOC: HO.MAMMO 09:07
PROVIDERS: PCP Physician Assistant; Visit Provider Internal Medicine
DX: M81.0 Age-related osteoporosis without current pathological fracture (principal)
CPT/HCPCS: 77081

== ENCOUNTER → 2023-01-18 09:15 | Outpatient (BNV) | payer MEDICARE, SELFPAY | PROVIDERS: PCP Physician Assistant; Visit Provider Radiology Diagnostic Radiology | DX: M85.89 Other specified disorders of bone density and structure, multiple sites (principal) | CPT/HCPCS: 77081 ==

== ENCOUNTER 2023-02-21 09:25 | Outpatient (AMB) | payer MEDICARE, SELFPAY ==
--- NOTE | 2023-02-21 09:29 | MHC.PC.OV ---
Vital Signs 02/21/23 09:30 Height 5 ft 6 in Weight 148 lb 2 oz BMI 23.9 BP 144/80 H Blood Pressure Location Lt brachial Position Sitting Pulse 98 Pulse Source Pulse Oximeter Pulse Oximetry (%) 99 Oxygen Delivery Method Room Air Intake Visit Reasons: f/u HTN/ lung cancer Towel Distributor Required: No Accompanied by: Self / Same As Patient Allergies No Known Allergies Allergy (Verified 02/21/23 09:46) Medication List - Last Reconciled 02/21/23 by Shay Bryant PA-C albuterol sulfate 90 mcg/actuation 2 puffs inhalation Q4-6H PRN 30 days Breo Ellipta 200-25 mcg/dose (fluticasone furoate-vilanterol) 1 ea PO DAILY NS calcium carbonate (Oyster Shell Calcium 500) 500 mg PO DAILY 90 days cholecalciferol (vitamin D3) 50 mcg PO DAILY 90 days diphenhydramine HCl 25 mg PO BEDTIME Incruse Ellipta 62.5 mcg/actuation (umeclidinium) 1 inh PO DAILY NS lisinopril 5 mg PO DAILY 90 days Tobacco use date assessed: 10/20/22 Fall risk assessment: No Falls in past year Last assessed Fall Risk: 02/21/23 Dental Screening Dental Screen Date: 02/21/23 Did you have a dental visit in the last 12 months?: Yes Did you have a dental problem in the last 6 months where you did not have access to dental care?: No Was dental information given to patient?: Patient has dentist HPI f/u HTN/ lung cancer HPI Details Patient is 73-year-old female here today for a follow-up visit. ? Patient has significant history for moderate COPD, hypertension, osteoporosis, Former smoker, recent diagnosis of non-small cell lung cancer of the right upper lobe. undergoing radiation treatment at [facility] and will have continue surveillance. COPD:? Patient has been followed by pulmonology and continues on maintenance inhaler.? She reports her stop smoking which has helped her pulmonary status. Now on O2 at night, continues on Breo and Incruse Report average spO2- 95%, .? . Lung cancer: Has done radiation treatment and does follow-up with her oncologist .. Osteoporosis:? Most recent bone densities showing T-score of -3.5 .? Was previously on injectable therapy. Now off of intractable therapy and continues on vitamin-D and calcium. She does have fairly severe osteoporosis likely secondary to her years of smoking.? She is followed by endocrinology .. Hypertension:? Blood pressure has been stable. Blood pressure slightly elevated today in office.? She denies any chest discomfort, headaches, shortness of breath, palpitations or vision issue. [facility] Medical History Community acquired pneumonia COPD (chronic obstructive pulmonary disease) HTN (hypertension) Hypoxemia Osteoporosis Personal history of nicotine dependence Pulmonary nodule Vitamin D deficiency Surgical History History of parathyroidectomy (~2007) Family History Father No problems noted. Mother No problems noted. Social History Household Members: Spouse and Family Household Members Other:: daughter and her friend Housing: House Do you presently have visiting nurse or other home services: No Alcohol intake: current Alcohol intake frequency: holidays/special occasions only Patient Tobacco Use Status: Former Tobacco user Tobacco use type: Cigarette Years Smoked: 30 e-Cigarette/Vaping Use: Never Used Second Hand Smoke Exposure: Yes service: No Current occupational status: retired Cognitive needs: No Hearing needs: No Vision needs: Yes Questionnaire Thrive Questionnaire Date Thrive assessed: 10/20/22 CHEY-7 AMB Questionnaire CHEY-7 Date CHEY - 7 assessed: 10/20/22 Source: Developed by Drs. Suraj Turk, Chantelle Bradshaw, Zackery Gallo and colleagues, with an educational hallie from [employer]. Review of Systems Const Denies headache(s) Eyes Denies loss of vision ENT Denies vertigo, Denies dizziness, Denies headache(s) and Denies sore throat Card Denies chest pain, Denies leg edema and Denies lightheadedness Resp Denies cough, Denies hemoptysis and Denies wheezing GI Denies abdominal pain, Denies melena, Denies constipation, Denies diarrhea and Denies vomiting Denies urinary frequency, Denies dysuria and Denies urinary urgency Musc Denies arthralgias, Denies joint swelling, Denies numbness and Denies tingling Neuro Denies Abnormal speech present, Denies behavioral changes, Denies vertigo, Denies dizziness, Denies headache(s), Denies loss of vision, Denies memory loss, Denies numbness and Denies tingling Psych Denies anxiety, Denies behavioral changes, Denies depression, Denies memory loss and Denies panic attacks Juan/Lymph Denies easy bleeding and Denies easy bruising Aller/Immun Denies wheezing Physical exam (Primary Care) Tobacco/Smoking Status: Tobacco use Status Tobacco use date assessed 10/20/22 02/21/23 09:30 Patient Tobacco Use Status Former Tobacco user 02/21/23 09:30 Tobacco use type Cigarette 02/21/23 09:30 e-Cigarette/Vaping Use Never Used 02/21/23 09:30 Thrive Assessment: Date of Thrive Assessment Date Thrive assessed 10/20/22 02/21/23 09:30 Const General: healthy appearing, no acute distress, alert and awake Nutritional Appearance: well nourished Orientation/consciousness: oriented to person, oriented to place and oriented to time HENMT Ears: TM's normal bilaterally General nose exam: Normal nasal mucous membranes and turbinates present Eyes Conjunctivae: conjunctivae normal Sclerae: sclerae normal Pupils: Equal, round and reactive pupils present Neck Neck: Yes no lymphadenopathy and Yes no JVD Thyroid: Thyroid normal Carotids: no bruits Resp Effort & Inspection: normal respiratory effort and not tachypneic Auscultation: no crackles, no rales, no rhonchi and no wheezes Cardio Rate: regular rate Rhythm: regular rhythm Heart sounds: no murmurs and normal S1 and S2 GI Palpation (GI): Soft to palpation, nontender, no hepatomegaly and no splenomegaly Auscultation: normal bowel sounds Skin General skin exam: no rashes or lesions noted and dry skin Neuro General: oriented to person, oriented to place and oriented to time Cranial nerves: Yes Equal, round and reactive pupils present Speech: No Abnormal speech present Gait exam (Neuro): Normal gait present Motor exam (neuro): no tremor noted Extrem Right upper extremity: full ROM Left upper extremity: full ROM Right lower extremity: full ROM; no edema Left lower extremity: full ROM; no edema Psych Mental Status: mental status grossly normal Speech and movement: Normal speech and movement present Affect: normal affect Attitude: cooperative Thought process: Normal thought process present Assessment and Plan Assessment & Plan (1) COPD (chronic obstructive pulmonary disease): Comment: Known case of severe chronic obstructive pulmonary disorder. As per spirometry, her COPD is very severe, but stable. Currently doing very well. [place]: Continue : Incruse Ellipta 1 puff daily. Breo 200-25 1 inhalation daily And albuterol HFA 2 puffs Q 4-6 hours only p.r.n. Continue to do deep breathing exercises 2 or 3 times every day. Code(s): J44.9 - Chronic obstructive pulmonary disease, unspecified Qualifiers: COPD type: emphysema Emphysema type: unspecified Qualified Code(s): J43.9 - Emphysema, unspecified Plan: Continues to follow pulmonology. Continues on maintenance inhaler shows have been helpful to keep down on her COPD symptoms. She reports her room COPD symptoms have been fairly well controlled with the exception of times of high humidity and air quality fluctuations. (2) Borderline high cholesterol: Code(s): E78.9 - Disorder of lipoprotein metabolism, unspecified Plan: Patient has a history of borderline high total cholesterol. Will recheck lipid panel to ensure normal. Will consider statin therapy if LDL above 190. (3) Non-small cell lung cancer: Code(s): C34.90 - Malignant neoplasm of unspecified part of unspecified bronchus or lung Qualifiers: Laterality: right Qualified Code(s): C34.91 - Malignant neoplasm of unspecified part of right bronchus or lung Plan: Followed by Oncology, has finished radiation treatment and has upcoming follow-up with Oncology. (4) HTN (hypertension): Code(s): I10 - Essential (primary) hypertension Qualifiers: Hypertension type: primary hypertension Qualified Code(s): I10 - Essential (primary) hypertension Plan: Patient's blood pressure slightly elevated today in office, she does report her blood pressures have been a more elevated due to issues with the breathing and weather. Orders: Orders Complete Blood Count no Diff Today I10 - Essential (primary) hypertension Microalbumin, Random (w Creat) Today I10 - Essential (primary) hypertension Comprehensive [place]. Panel Fast Today I10 - Essential (primary) hypertension Lipid Panel Today E78.9 - Disorder of lipoprotein metabolism, unspecified Coding Level of Care Code Est Pt Level 4 (28622) Diagnoses Pulmonary emphysema, unspecified emphysema type J43.9 COPD type: emphysema Emphysema type: unspecified Borderline high cholesterol E78.9 Non-small cell cancer of right lung C34.91 Laterality: right Primary hypertension I10 Hypertension type: primary hypertension
[2023-02-21 09:30] VITALS: BP 144/80; PULSE 98; O2SAT 99; BMI 23.9
== END 2023-02-21 09:58 | disposition home or self-care (01) ==
PROVIDERS: PCP Physician Assistant; Visit Provider Physician Assistant
DX: J43.9 Emphysema, unspecified (principal); E78.9 Disorder of lipoprotein metabolism, unspecified; C34.91 Malignant neoplasm of unspecified part of right bronchus or lung; I10 Essential (primary) hypertension
CPT/HCPCS: 99214

== ENCOUNTER 2023-08-01 09:23 | Outpatient (AMB) | payer MEDICARE, SELFPAY ==
[2023-08-01 09:31] VITALS: BP 130/68; PULSE 102; O2SAT 93; BMI 24.0
--- NOTE | 2023-08-01 09:31 | MHC.OFFVIS ---
Intake Vital Signs 08/01/23 09:31 Height 5 ft 6 in Weight 149 lb BMI 24.0 BP 130/68 Blood Pressure Location Lt brachial Position Sitting Pulse 102 H Pulse Source Pulse Oximeter Pulse Oximetry (%) 93 Oxygen Delivery Method Room Air Intake Visit Reasons: COPD Intake Note: pt is here for follow up she is feeling good, followed Dr. Simmons to [facility]. Nursing Manager Required: No Allergies No Known Allergies Allergy (Verified 08/01/23 09:45) Medication List - Last Reconciled 08/01/23 by Trenton Fernandez MD albuterol sulfate 90 mcg/actuation 2 puffs inhalation Q4-6H PRN 30 days Breo Ellipta 200-25 mcg/dose (fluticasone furoate-vilanterol) 1 ea PO DAILY NS calcium carbonate (Oyster Shell Calcium 500) 500 mg PO DAILY 90 days cholecalciferol (vitamin D3) 50 mcg PO DAILY 90 days diphenhydramine HCl 25 mg PO BEDTIME Incruse Ellipta 62.5 mcg/actuation (umeclidinium) 1 inh PO DAILY NS lisinopril 5 mg PO DAILY 90 days Do you need a note to return to daycare/school/sports/work: No HPI COPD HPI Details KAN IS 73 YEARS OLD FEMALE. Case of chronic obstructive pulmonary disease/nocturnal hypoxemia. Also has had a pulmonary nodule, due to adeno carcinoma, treated with radiation therapy and resolved. She is using her inhalers regularly and also O2 2 L/minute at night. As her has also stop. smoking so the house is smoke-free She has had no respiratory infection and her respiratory status is remaining very stable. [facility] Medical History Vitamin D deficiency Hypoxemia COPD (chronic obstructive pulmonary disease) Community acquired pneumonia Pulmonary nodule Osteoporosis HTN (hypertension) Personal history of nicotine dependence Surgical History History of parathyroidectomy (~2007) Family History Father No problems noted. Mother No problems noted. Social History Household Members: Spouse and Family Household Members Other:: daughter and her friend Housing: House Do you presently have visiting nurse or other home services: No Alcohol intake: current Alcohol intake frequency: holidays/special occasions only Patient Tobacco Use Status: Former Tobacco user Tobacco use type: Cigarette Years Smoked: 30 e-Cigarette/Vaping Use: Never Used Second Hand Smoke Exposure: Yes service: No Current occupational status: retired Cognitive needs: No Hearing needs: No Vision needs: Yes Review of Systems Const All systems reviewed & are unremarkable except as noted in HPI and below Eyes Reports no additional complaints ENT Reports no additional complaints Card Denies chest pain, Denies irregular heart rhythm and Denies leg edema Resp Reports as per HPI GI Reports no additional complaints Reports no additional complaints Musc Reports no additional complaints Skin/Breast Reports system reviewed and no additional complaints, except as documented Neuro Reports no additional complaints Psych Reports no additional complaints Physical Exam Vital Signs: Last Vital Signs Pulse 102 H 08/01/23 09:31 BP 130/68 08/01/23 09:31 Pulse Ox 93 08/01/23 09:31 Oxygen Delivery Method Room Air 08/01/23 09:31 BMI result Body Mass Index 24.0 Const General: healthy appearing, comfortable, no acute distress, alert and awake Orientation/consciousness: patient oriented x3 HEENT Head: Yes normal to inspection General nose exam: No nasal polyps present and No nasal discharge present Face and sinus: Yes sinuses nontender Mouth: oropharynx normal Throat: Yes posterior oropharynx normal Eyes General: appearance normal, both eyes and all related structures Neck Neck: Yes normal visual inspection, Yes no lymphadenopathy, Yes trachea midline and Yes no JVD Thyroid: Thyroid normal Chest Chest palpation & inspection: normal inspection of the chest, normal palpation of entire chest wall and no tenderness Resp Other: Percussion note hyper-resonant, breath sounds are distant with prolonged expiratory phase. No wheezes rhonchi or crepitations are heard. Percussion: other Cardio Palpation: normal PMI Rate: regular rate Rhythm: regular rhythm Heart sounds: no gallops and no murmurs GI Palpation (GI): Soft to palpation, nontender, No hepatosplenomegaly present and no masses Auscultation: normal bowel sounds Back/Spine/Pelvis Thoracic/Lumbar Spine: thoracic and lumbar spine normal to inspection Skin General skin exam: no rashes or lesions noted Neuro General: patient oriented x3 and no focal motor deficits Cranial nerves: Yes CN's II-XII intact bilaterally Extrem General: Yes normal to inspection, Yes no clubbing, cyanosis or edema and Yes no calf tenderness Psych Appearance: grossly normal and well kempt Speech and movement: Normal speech and movement present Assessment & Plan Assessment & Plan (1) COPD (chronic obstructive pulmonary disease): Comment: Known case of severe chronic obstructive pulmonary disorder. As per spirometry, her COPD is very severe, but stable. Currently doing very well. Code(s): J44.9 - Chronic obstructive pulmonary disease, unspecified Qualifiers: COPD type: emphysema Emphysema type: unspecified Qualified Code(s): J43.9 - Emphysema, unspecified Plan: TX: Continue : Incruse Ellipta 1 puff daily. Breo 200-25 1 inhalation daily And albuterol HFA 2 puffs Q 4-6 hours only p.r.n. (2) Hypoxemia: Comment: She is known to have Nocturnal Hypoxemia + exercise induced hypoxemia. Code(s): R09.02 - Hypoxemia Plan: TX : O2 2 L/minute at night and p.r.n. during the daytime. Does have portable unit but does not need with her usual day-to-day activity. ) (3) Cancer of upper lobe of right lung: Comment: Patient had biopsy of a pulmonary nodule in right upper lobe, which was growing in size. Biopsy positive for adeno carcinoma. Patient not a good surgical risk. Has been treated with R/Th x 5 sessions with resolution of the nodule. doing well . Code(s): C34.11 - Malignant neoplasm of upper lobe, right bronchus or lung Plan: Cont. regular F U with [facility]. Oncology . Coding Level of Care Code Est Pt Level 3 (79088) Diagnoses Pulmonary emphysema, unspecified emphysema type J43.9 COPD type: emphysema Emphysema type: unspecified Hypoxemia R09.02 Cancer of upper lobe of right lung C34.11
== END 2023-08-01 09:46 | disposition home or self-care (01) ==
PROVIDERS: PCP Physician Assistant; Visit Provider Internal Medicine
DX: J43.9 Emphysema, unspecified (principal); R09.02 Hypoxemia; C34.11 Malignant neoplasm of upper lobe, right bronchus or lung
CPT/HCPCS: 99213

== ENCOUNTER → 2023-08-01 09:23 | Outpatient (BNVA) | payer MEDICARE, SELFPAY | PROVIDERS: PCP Physician Assistant; Visit Provider Internal Medicine | DX: J43.9 Emphysema, unspecified (principal); C34.11 Malignant neoplasm of upper lobe, right bronchus or lung; R09.02 Hypoxemia | CPT/HCPCS: 99212 ==

== ENCOUNTER 2023-08-29 07:46 | Outpatient (REF) | payer MEDICARE, SELFPAY ==
[2023-08-29 08:40] LABS: Hematocrit 38.5 % (37.0-47.0); Mean Corpuscular HGB Conc 31.2 g/dl (31.0-35.0); Mean Platelet Volume 9.1 fL (9.4-12.3); Platelet Count 293 X10*3/uL (160-400); Red Blood Count 4.28 X10*6/uL (4.20-5.50); Red Cell Distribution Width 14.7 % (11.0-16.0); White Blood Count 6.6 X10*3/uL (4.8-10.8)
[2023-08-29 09:03] LABS: Alanine Aminotransferase 22 U/L (0-31); Albumin Level 4.2 g/dL (3.5-5.0); Alkaline Phosphatase 114 U/L (39-117); Anion Gap 13 (12-20); Aspartate Amino Transferase 22 U/L (5-31); Bilirubin Total 0.4 mg/dL (0.0-1.0); Blood Urea Nitrogen 23 mg/dL (9-16); Carbon Dioxide 29 mmol/L (22-29); Chloride 107 mmol/L (96-108); Cholesterol 301 mg/dL (<200); Estimated Glomerular Filt Rate 59; Glucose Fasting 88 mg/dL (60-99); HDL Cholesterol 110 mg/dL (>40); LDL Cholesterol Calculated 170 mg/dL (<100); Potassium 5.4 mmol/L (3.3-5.1); Sodium 144 mmol/L (135-145); Total Protein 7.3 g/dL (6.5-8.0); Triglycerides 109 mg/dL (<150)
[2023-08-29 09:15] LABS: Creatinine Urine 74.51 mg/dL; Microalbum/Creatinine Ratio Ur 10.7 ug/mg cr (<30)
== END 2023-08-29 07:47 | disposition home or self-care (01) ==
LOC: HO.LAB 07:46
PROVIDERS: PCP Physician Assistant; Visit Provider Physician Assistant
DX: I10 Essential (primary) hypertension (principal); E78.9 Disorder of lipoprotein metabolism, unspecified
CPT/HCPCS: 36415; 80053; 80061; 82043; 82570; 85027

== ENCOUNTER 2023-08-31 09:19 | Outpatient (AMB) | payer MEDICARE, SELFPAY ==
[2023-08-31 09:20] VITALS: BP 156/72; PULSE 100; O2SAT 96; BMI 24.7
--- NOTE | 2023-08-31 09:20 | MHC.PC.OV ---
Vital Signs 08/31/23 09:20 Height 5 ft 6 in Weight 153 lb BMI 24.7 BP 156/72 H Blood Pressure Location Lt brachial Position Sitting Pulse 100 Pulse Source Pulse Oximeter Pulse Oximetry (%) 96 Oxygen Delivery Method Room Air Intake Visit Reasons: Follow up COPD Oracle Programmer Required: No Gunstock Repairer: Not Required per policy Accompanied by: Self / Same As Patient Allergies No Known Allergies Allergy (Verified 08/31/23 09:31) Medication List - Last Reconciled 08/31/23 by Shay Bryant PA-C albuterol sulfate 90 mcg/actuation 2 puffs inhalation Q4-6H PRN 30 days Breo Ellipta 200-25 mcg/dose (fluticasone furoate-vilanterol) 1 ea PO DAILY NS calcium carbonate (Oyster Shell Calcium 500) 500 mg PO DAILY 90 days cholecalciferol (vitamin D3) 50 mcg PO DAILY 90 days diphenhydramine HCl 25 mg PO BEDTIME Incruse Ellipta 62.5 mcg/actuation (umeclidinium) 1 inh PO DAILY NS lisinopril 5 mg PO DAILY 90 days Tobacco use date assessed: 08/31/23 Fall risk assessment: No Falls in past year Last assessed Fall Risk: 08/31/23 Dental Screening Dental Screen Date: 08/31/23 Did you have a dental visit in the last 12 months?: Yes Did you have a dental problem in the last 6 months where you did not have access to dental care?: No Was dental information given to patient?: Patient has dentist HPI Follow up COPD HPI Details Patient is 73-year-old female here today for a follow-up visit. ? Patient has significant history for moderate COPD, hypertension, osteoporosis, Former smoker, recent diagnosis of non-small cell lung cancer of the right upper lobe. undergoing radiation treatment at [facility] and will have continue surveillance. COPD:? Patient has been followed by pulmonology and continues on maintenance inhaler.? She reports her stop smoking which has helped her pulmonary status. Now on O2 at night, continues on Breo and Incruse Report average spO2- 95%, .? . Lung cancer: Has done radiation treatment and does follow-up with her oncologist. Her lung nodule has been stable. Also followed by thoracic surgeon and be continuing to get surveillance imaging. .. Osteoporosis:? Most recent bone densities showing T-score of -3.5 .? Was previously on injectable therapy. She does have fairly severe osteoporosis likely secondary to her years of smoking.? She is followed by endocrinology .. Hypertension:? Blood pressure today in office elevated. Reports that home blood pressures have been 130s to 140 systolic. . She denies any chest discomfort, headaches, shortness of breath, palpitations or vision issue. PLAN: Will increase her lisinopril dose for better blood pressure control. Reviewed labs with patient and noted very elevated total cholesterol and LDL.. She is willing to start statin therapy Laboratory Tests 08/29/23 08/29/23 08/29/23 07:58 08:01 08:01 RBC 4.28 Hgb 12.0 Creatinine 0.94 Cholesterol 301 H LDL Cholesterol, C alc 170 H Urine Microalbumin 8.0 PFSH Medical History Vitamin D deficiency Hypoxemia COPD (chronic obstructive pulmonary disease) Community acquired pneumonia Pulmonary nodule Osteoporosis HTN (hypertension) Personal history of nicotine dependence Surgical History History of parathyroidectomy (~2007) Family History Father No problems noted. Mother No problems noted. Social History Household Members: Spouse and Family Household Members Other:: daughter and her friend Housing: House Do you presently have visiting nurse or other home services: No Alcohol intake: current Alcohol intake frequency: holidays/special occasions only Patient Tobacco Use Status: Former Tobacco user Tobacco use type: Cigarette Years Smoked: 30 e-Cigarette/Vaping Use: Never Used Second Hand Smoke Exposure: Yes service: No Current occupational status: retired Cognitive needs: No Hearing needs: No Vision needs: Yes (glasses) Questionnaire PHQ-9 Over the last 2 weeks, how often have you been bothered by any of the following problems? 1. Little interest or pleasure in doing things: not at all 2. Feeling down, depressed, or hopeless: not at all 3. Trouble falling or staying asleep, or sleeping too much: not at all 4. Feeling tired or having little energy: not at all 5. Poor appetite or overeating: not at all 6. Feeling bad about yourself - or that you are a failure or have let yourself or your family down: not at all 7. Trouble concentrating on things, such as reading the newspaper or watching television: not at all 8. Moving or speaking so slowly that other people could have noticed. Or the opposite - being so fidgety or restless that you have been moving around a lot more than usual: not at all 9. Thoughts that you would be better off or of hurting yourself in some way: not at all Total score: 0 Depression Screening Interpretation: Negative Depression Screening Done: Yes 57402 - PHQ-9 Billing: Yes Source: Developed by Drs. Suraj Turk, Chantelle Bradshaw, Zackery Gallo and colleagues, with an educational hallie from [employer]. Thrive Questionnaire Date Thrive assessed: 08/31/23 I am a: Patient What is your living situation today?: I have a steady place to live Within the past 12 months, did the food you bought not last and you didn't have the money to get more?: Never true Within the past 12 months, did you worry whether your food would run out before you got money to buy more?: Never true Do you have trouble paying for medicines?: No Do you have trouble getting transportation to medical appointments?: No Do you have trouble paying your heating and electricity bill?: No Do you have trouble taking care of your child, family member or friend?: No Do you have trouble with day-to-day activities such as bathing, preparing meals, shopping, managing finances, etc.?: No Are you currently unemployed and looking for a job?: No Are you interested in more education?: No Please select the resources that you would like help with: None THRIVE Score: 0 AUDIT C Alcohol Use Questionnaire (AUDIT-C) 1. How often do you have a drink containing alcohol?: Monthly or less 2. How many drinks containing alcohol do you have on a typical day when you are drinking?: 1 or 2 3. How often do you have six or more drinks on one occasion?: Never Total Score: 1 CHEY-7 AMB Questionnaire CHEY-7 Date CHEY - 7 assessed: 08/31/23 Feeling nervous, anxious, or on edge: 0 = Not at all Not being able to stop or control worryin = Not at all Worrying too much about different things: 0 = Not at all Trouble relaxin = Not at all Being so restless that it is hard to sit still: 0 = Not at all Becoming easily annoyed or irritable: 0 = Not at all Feeling afraid as if something awful might happen: 0 = Not at all Total CHEY-7 score (0-4 normal; 5-9 mild; 10-14 moderate; 15-21 severe): 0 Source: Developed by Drs. Suraj Turk, Chantelle Bradshaw, Zackery Gallo and colleagues, with an educational hallie from [employer]. CHEY-7 Assessment Billing CHEY-7 Assessment Tool: CHEY-7 Assessment 32879 Review of Systems Const Denies headache(s) Eyes Denies loss of vision ENT Denies vertigo, Denies dizziness, Denies headache(s) and Denies sore throat Card Denies chest pain, Denies leg edema and Denies lightheadedness Resp Denies cough, Denies hemoptysis and Denies wheezing GI Denies abdominal pain, Denies melena, Denies constipation, Denies diarrhea and Denies vomiting Denies urinary frequency, Denies dysuria and Denies urinary urgency Musc Denies arthralgias, Denies joint swelling, Denies numbness and Denies tingling Neuro Denies Abnormal speech present, Denies behavioral changes, Denies vertigo, Denies dizziness, Denies headache(s), Denies loss of vision, Denies memory loss, Denies numbness and Denies tingling Psych Denies anxiety, Denies behavioral changes, Denies depression, Denies memory loss and Denies panic attacks Juan/Lymph Denies easy bleeding and Denies easy bruising Aller/Immun Denies wheezing Physical exam (Primary Care) Vital Signs: Last Vital Signs Pulse 100 08/31/23 09:20 BP 156/72 H 08/31/23 09:20 Pulse Ox 96 08/31/23 09:20 Oxygen Delivery Method Room Air 08/31/23 09:20 BMI result Body Mass Index 24.7 Tobacco/Smoking Status: Tobacco use Status Tobacco use date assessed 08/31/23 08/31/23 09:21 Patient Tobacco Use Status Former Tobacco user 08/31/23 09:21 Tobacco use type Cigarette 08/31/23 09:21 e-Cigarette/Vaping Use Never Used 08/31/23 09:21 PHQ-9: PHQ-9 Score PHQ-9: Total score 0 08/31/23 09:34 Depression Screening Interpretation: Negative Thrive Assessment: Date of Thrive Assessment Date Thrive assessed 08/31/23 08/31/23 09:21 Const General: healthy appearing, no acute distress, alert and awake Nutritional Appearance: well nourished Orientation/consciousness: oriented to person, oriented to place and oriented to time HENMT Ears: TM's normal bilaterally General nose exam: Normal nasal mucous membranes and turbinates present Eyes Conjunctivae: conjunctivae normal Sclerae: sclerae normal Pupils: Equal, round and reactive pupils present Neck Neck: Yes no lymphadenopathy and Yes no JVD Thyroid: Thyroid normal Carotids: no bruits Resp Effort & Inspection: normal respiratory effort and not tachypneic Auscultation: no crackles, no rales, no rhonchi and no wheezes Cardio Rate: regular rate Rhythm: regular rhythm Heart sounds: no murmurs and normal S1 and S2 GI Palpation (GI): Soft to palpation, nontender, no hepatomegaly and no splenomegaly Auscultation: normal bowel sounds Skin General skin exam: no rashes or lesions noted and dry skin Neuro General: oriented to person, oriented to place and oriented to time Cranial nerves: Yes Equal, round and reactive pupils present Speech: No Abnormal speech present Gait exam (Neuro): Normal gait present Motor exam (neuro): no tremor noted Extrem Right upper extremity: full ROM Left upper extremity: full ROM Right lower extremity: full ROM; no edema Left lower extremity: full ROM; no edema Psych Mental Status: mental status grossly normal Speech and movement: Normal speech and movement present Affect: normal affect Attitude: cooperative Thought process: Normal thought process present Assessment and Plan Assessment & Plan (1) COPD (chronic obstructive pulmonary disease): Comment: Known case of severe chronic obstructive pulmonary disorder. As per spirometry, her COPD is very severe, but stable. Currently doing very well. Code(s): J44.9 - Chronic obstructive pulmonary disease, unspecified Qualifiers: COPD type: emphysema Emphysema type: unspecified Qualified Code(s): J43.9 - Emphysema, unspecified Plan: Continues to follow pulmonology. Continues on maintenance inhaler shows have been helpful to keep down on her COPD symptoms. She reports her COPD symptoms have been fairly well controlled with the exception of times of high humidity and air quality fluctuations. (2) Non-small cell lung cancer: Code(s): C34.90 - Malignant neoplasm of unspecified part of unspecified bronchus or lung Qualifiers: Laterality: right Qualified Code(s): C34.91 - Malignant neoplasm of unspecified part of right bronchus or lung Plan: Followed by Oncology, has finished radiation treatment and has upcoming follow-up with Oncology. Will be following up with her thoracic surgeon for continued surveillance chest imaging. (3) HTN (hypertension): Code(s): I10 - Essential (primary) hypertension Qualifiers: Hypertension type: primary hypertension Qualified Code(s): I10 - Essential (primary) hypertension Plan: Patient's blood pressure slightly elevated today in office, she reports that home blood pressure readings are 130s to 140 systolic. patient asymptomatic. Will increase her lisinopril dose to 10 mg Goal blood pressure is to be below 140/90 (4) HLD (hyperlipidemia): Code(s): E78.5 - Hyperlipidemia, unspecified Qualifiers: Hyperlipidemia type: mixed hyperlipidemia Qualified Code(s): E78.2 - Mixed hyperlipidemia Plan: Patient's most recent fasting lipid panel showing very elevated total cholesterol and LDL. She is willing to start statin therapy. Will recheck fasting lipids in 4 months to assure normalization of total cholesterol and LDL. Goal LDL to be below 160 Orders: Orders Comprehensive [place]. Panel Fast 4 Months I10 - Essential (primary) hypertension Lipid Panel 4 Months E78.2 - Mixed hyperlipidemia TSH reflex Free T4 4 Months C34.91 - Malignant neoplasm of unspecified part of right bronchus or lung Medications: New simvastatin 10 mg PO DAILY 90 tabs 1RF E78.2 - Mixed hyperlipidemia lisinopril 10 mg PO DAILY 90 tabs 1RF I10 - Essential (primary) hypertension Discontinued lisinopril Discontinued Reason: Doctor's Order 5 mg PO DAILY 90 days 90 tabs 2RF I10 - Essential (primary) hypertension Coding Level of Care Code Est Pt Level 4 (05697) Diagnoses Pulmonary emphysema, unspecified emphysema type J43.9 COPD type: emphysema Emphysema type: unspecified Non-small cell cancer of right lung C34.91 Laterality: right Primary hypertension I10 Hypertension type: primary hypertension Mixed hyperlipidemia E78.2 Hyperlipidemia type: mixed hyperlipidemia Additional Codes CHEY-7 Assessment Billing - CHEY-7 Assessment Tool: CHEY-7 Assessment 91394 ([id number])
== END 2023-08-31 09:58 | disposition home or self-care (01) ==
PROVIDERS: PCP Physician Assistant; Visit Provider Physician Assistant
DX: J43.9 Emphysema, unspecified (principal); C34.91 Malignant neoplasm of unspecified part of right bronchus or lung; I10 Essential (primary) hypertension; E78.2 Mixed hyperlipidemia
CPT/HCPCS: 99214

== ENCOUNTER 2023-11-01 15:54 | Outpatient (AMB) | payer MEDICARE, SELFPAY ==
[2023-11-01 15:55] VITALS: BP 168/80; PULSE 102; BMI 24.7
--- NOTE | 2023-11-01 15:55 | A.OFFVIS_ITS ---
Vital Signs 11/01/23 15:55 Height 5 ft 6 in Weight 153 lb 3.54 oz BMI 24.7 BP 168/80 H Blood Pressure Location Lt brachial Position Sitting Pulse 102 H Pulse Source Pulse Oximeter Intake Visit Reasons: Osteoporosis-LVM Intake Note: Patient present today for Osteoporosis follow up visit. Last seen by Dr. Almaguer on 01/09/23. Distribution Specialist Required: No Accompanied by: Self / Same As Patient Allergies No Known Allergies Allergy (Verified 11/01/23 15:59) Medication List - Last Reconciled 11/01/23 by Suraj Penny MD albuterol sulfate 90 mcg/actuation 2 puffs inhalation Q4-6H PRN 30 days Breo Ellipta 200-25 mcg/dose (fluticasone furoate-vilanterol) 1 ea PO DAILY NS calcium carbonate (Oyster Shell Calcium 500) 500 mg PO DAILY 90 days cholecalciferol (vitamin D3) 50 mcg PO DAILY 90 days diphenhydramine HCl 25 mg PO BEDTIME Incruse Ellipta 62.5 mcg/actuation (umeclidinium) 1 inh PO DAILY NS lisinopril 10 mg PO DAILY simvastatin 10 mg PO DAILY HPI Comments Details: 73 YO Female with PMHx of Hyperparathyroidism, s/p a single gland par athyroidectomy in 2004 and Osteoporosis who is seen in F/U.. The patient last saw Dr. Almaguer on 01/09/2023 Of note, she was recently diagnosed with adenocarcinoma of the lung and completed radiation therapy. First diagnosed with Osteoporosis many years ago, she does not recall. Was treated with Alendronate from 2020-mid 2021. We stopped her Alendroante after her initial visit with me in order to complete a biochemical evaluation for secondary causes of Osteoporosis. Blood work was negative for any secondary causes and her hyperparathyroidism appears to be cured. No history of pathologic fracture or ONJ. Has 2-3 servings of dietary calcium per day in the form of cheese. Takes Calcium supplement 500 mg daily. Takes 2000 IU of Vitamin D daily. Uses glucocorticoids occasionally for COPD flares. Denies ever using PPI, anticoagulant, or antiepileptic medication. Does weight bearing exercise 5 days per week in the form of walking. 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 Menses was always regular. She is . She breastfed 6 months in total. Menopause was age 57. She did use HRT for 1 year. Denies history of Kidney stones. Has a family history of Osteoporosis in her Grandmother and Mother. UTD on dental cleanings and sees dentist every 6 months. No planned upcoming dental work or extractions. DXA: 12/01/2020 FINDINGS: AP SPINE L1-L3 (excluding L4): The data of L1-L4 has been changed to exclude the L4 vertebral body, because levocurvature and degenerative changes at this level may cause overestimation of lumbar spine density. BMD 0.748 g/cm2, Z-score -2.0, T-score -3.5, osteoporosis. LEFT FEMUR, NECK: BMD 0.686 g/cm2, Z-score -1.0, T-score -2.5, osteoporosis. LEFT FEMUR, TOTAL: BMD 0.718 g/cm2, Z-score -1.0, T-score -2.3, osteopenia. Labs: Laboratory Tests 04/14/22 04/14/22 04/14/22 10:01 10:01 10:01 Sodium 142 Potassium 4.7 Creatinine 0.79 Estimated GFR > 60 Phosphorus 3.9 Alkaline Phosphatase 107 D Alk Phos Bone Specific 13.4 Albumin 4.5 D PEP Interpretation SEE NOTE 25-OH Vitamin D Total 29.2 TSH 0.85 Free T4 1.20 PTH Intact 66 Calcium (PTH Intact) 9.6 Taking calcium and Vitamin D supplementation [facility] Medical History Vitamin D deficiency Hypoxemia COPD (chronic obstructive pulmonary disease) Community acquired pneumonia Pulmonary nodule Osteoporosis HTN (hypertension) Personal history of nicotine dependence Surgical History History of parathyroidectomy (~2007) Family History Father No problems noted. Mother No problems noted. Social History Household Members: Spouse and Family Household Members Other:: daughter and her friend Housing: House Do you presently have visiting nurse or other home services: No Alcohol intake: current Alcohol intake frequency: holidays/special occasions only Patient Tobacco Use Status: Former Tobacco user Tobacco use type: Cigarette Years Smoked: 30 e-Cigarette/Vaping Use: Never Used Second Hand Smoke Exposure: Yes service: No Current occupational status: retired Cognitive needs: No Hearing needs: No Vision needs: Yes (glasses) Physical Exam Vital Signs: Last Vital Signs Pulse 102 H 11/01/23 15:55 BP 168/80 H 11/01/23 15:55 BMI result Body Mass Index 24.7 Const Other: Thyroid gland is of normal size and weighs 15 gms. There are no nodules palpated. There is no tenderness on palpation of the spine Assessment & Plan Assessment & Plan (1) Osteoporosis: Comment: (Bone Dexa Lumbar T-score: -3.5 on 11/2020) Code(s): M81.0 - Age-related osteoporosis without current pathological fracture Category: Medical Qualifiers: Osteoporosis type: age-related Presence of current pathological fracture: without current pathological fracture Qualified Code(s): M81.0 - Age- related osteoporosis without current pathological fracture Plan: This is a 73-year-old white female with a history of osteoporosis and prior history of primary hyperparathyroidism as well as lung cancer with radiation treatment. Other secondary causes ruled out. The patient is currently on calcium and vitamin-D. Plan is to continue the calcium and vitamin-D. We will talk to patient about possible pharmacologic therapy with either Prolia or Reclast but would favor Prolia 1st which would have greater effect on increasing bone density in the spine. Can not use Forteo or Tymlos because of the radiation. Both Prolia and Reclast have data in the setting of cancer,After a discussion with pt decided to go with Prolia Coding Level of Care Code Est Pt Level 3 (32863) Diagnoses Age-related osteoporosis without current pathological fracture M81.0 Osteoporosis type: age-related Presence of current pathological fracture: without current pathological fracture
== END 2023-11-01 16:30 | disposition home or self-care (01) ==
LOC: HO.ENCR 15:54
PROVIDERS: PCP Physician Assistant; Visit Provider Internal Medicine Endocrinology, Diabetes & Metabolism
DX: M81.0 Age-related osteoporosis without current pathological fracture (principal)
CPT/HCPCS: 99213

== ENCOUNTER → 2023-11-01 15:54 | Outpatient (BNVA) | payer MEDICARE, SELFPAY | PROVIDERS: PCP Physician Assistant; Visit Provider Internal Medicine Endocrinology, Diabetes & Metabolism | DX: M81.0 Age-related osteoporosis without current pathological fracture (principal) | CPT/HCPCS: 99212 ==

== ENCOUNTER 2023-12-11 09:24 | Outpatient (AMB) | payer MEDICARE, SELFPAY ==
[2023-12-11 09:26] VITALS: BP 148/80; PULSE 90; O2SAT 100; BMI 24.0
--- NOTE | 2023-12-11 09:26 | MHC.PC.OV ---
Vital Signs 12/11/23 09:26 Height 5 ft 6 in Weight 148 lb 8 oz BMI 24.0 BP 148/80 H Blood Pressure Location Lt brachial Position Sitting Pulse 90 Pulse Source Pulse Oximeter Pulse Oximetry (%) 100 Oxygen Delivery Method Room Air Intake Visit Reasons: Annual Exam Intake Note: Patient is here today for a physical. Rules Examiner Required: No Accompanied by: Self / Same As Patient Allergies No Known Allergies Allergy (Verified 12/11/23 09:36) Medication List - Last Reconciled 12/11/23 by Shay Bryant PA-C albuterol sulfate 90 mcg/actuation 2 puffs inhalation Q4-6H PRN 30 days Breo Ellipta 200-25 mcg/dose (fluticasone furoate-vilanterol) 1 ea PO DAILY NS calcium carbonate (Oyster Shell Calcium 500) 500 mg PO DAILY 90 days cholecalciferol (vitamin D3) 50 mcg PO DAILY 90 days denosumab (Prolia) 60 mg subcut [id number] diphenhydramine HCl 25 mg PO BEDTIME Incruse Ellipta 62.5 mcg/actuation (umeclidinium) 1 inh PO DAILY NS lisinopril 10 mg PO DAILY simvastatin 10 mg PO DAILY Tobacco use date assessed: 08/31/23 Fall risk assessment: No Falls in past year Last assessed Fall Risk: 12/11/23 Dental Screening Dental Screen Date: 08/31/23 HPI Annual Exam HPI Details Patient is 73-year-old female here today for a follow-up visit. ? Patient has significant history for moderate COPD, hypertension, osteoporosis, Former smoker, recent diagnosis of non-small cell lung cancer of the right upper lobe. undergoing radiation treatment at [facility] and will have continue surveillance. COPD:? Patient has been followed by pulmonology and continues on maintenance inhaler.? She reports her stop smoking which has helped her pulmonary status. Now on O2 at night, continues on Breo and Incruse Report average spO2- 95%, .? . Lung cancer: Has done radiation treatment and does follow-up with her oncologist. Her lung nodule has been stable. Also followed by thoracic surgeon and be continuing to get surveillance imaging. .. Osteoporosis:? Most recent bone densities showing T-score of -3.5 .? Was previously on injectable therapy. She does have fairly severe osteoporosis likely secondary to her years of smoking.? She is followed by endocrinology and will be starting Prolia injections .. Hypertension:? Blood pressure today in office slightly elevated, we did increase her lisinopril to 10 mg. She reports that home blood pressures are around 140 systolic.. PLAN: Will increase her lisinopril to 20 mg dose for better blood pressure control. VaCCiNes: up-to-date with COVID vaccine, pneumonia vaccine, tetanus vaccine, flu shot, she has considering the shingles vaccine Colon cancer screening : willing to do cologaurd MAmmogram: need new mammo [facility] Medical History (Updated 12/12/23 @ 07:39 by Shay Bryant PA-C) Colon cancer screening Vitamin D deficiency Hypoxemia COPD (chronic obstructive pulmonary disease) Community acquired pneumonia Pulmonary nodule Osteoporosis HTN (hypertension) Personal history of nicotine dependence Surgical History History of parathyroidectomy (~2007) Family History Father No problems noted. Mother No problems noted. Social History (Updated 12/11/23 @ 09:41 by Shay Bryant PA-C) Household Members: Spouse and Family Household Members Other:: daughter and her friend Housing: House Do you presently have visiting nurse or other home services: No Alcohol intake: current Alcohol intake frequency: holidays/special occasions only Patient Tobacco Use Status: Former Tobacco user Tobacco use type: Cigarette Years Smoked: 30 e-Cigarette/Vaping Use: Never Used Second Hand Smoke Exposure: Yes service: No Current occupational status: retired Cognitive needs: No Hearing needs: No Vision needs: Yes (glasses) Questionnaire Thrive Questionnaire Date Thrive assessed: 08/31/23 CHEY-7 AMB Questionnaire HCEY-7 Date CHEY - 7 assessed: 08/31/23 Source: Developed by Drs. Suraj Turk, Chantelle Bradshaw, Zackery Gallo and colleagues, with an educational hallie from [employer]. Review of Systems Const Denies body aches, Denies chills, Denies excessive sweating, Denies fatigue, Denies fever(s) and Denies headache(s) Eyes Denies blurry vision ENT Denies dysphagia, Denies vertigo, Denies dizziness, Denies headache(s), Denies hearing loss and Denies tinnitus Card Denies chest pain, Denies chest pain with activity, Denies syncope, Denies irregular heart rhythm and Denies dyspnea Resp Denies chest congestion, Denies cough, Denies hemoptysis, Denies dyspnea and Denies wheezing GI Denies abdominal pain, Denies melena, Denies hematochezia, Denies coffee ground emesis, Denies dysphagia, Denies diarrhea, Denies nausea and Denies vomiting Denies urinary frequency, Denies dysuria, Denies urinary hesitancy and Denies urinary urgency Musc Denies arthralgias, Denies limited range of motion, Denies muscle cramps and Denies muscle weakness Skin/Breast Denies rash and Denies skin ulcer Neuro Denies Abnormal speech present, Denies confusion, Denies vertigo, Denies dizziness, Denies syncope, Denies headache(s), Denies memory loss and Denies seizure-like activity Psych Denies anxiety, Denies confusion, Denies depression, Denies memory loss, Denies panic attacks and Denies paranoia Endo Denies excessive sweating, Denies fatigue, Denies flushing, Denies polydipsia and Denies polyuria Aller/Immun Denies wheezing Physical exam (Primary Care) Vital Signs: Last Vital Signs Pulse 90 12/11/23 09:26 BP 148/80 H 12/11/23 09:26 Pulse Ox 100 12/11/23 09:26 Oxygen Delivery Method Room Air 12/11/23 09:26 BMI result Body Mass Index 24.0 Tobacco/Smoking Status: Tobacco use Status Tobacco use date assessed 08/31/23 12/11/23 09:26 Patient Tobacco Use Status Former Tobacco user 12/11/23 09:41 Tobacco use type Cigarette 12/11/23 09:41 e-Cigarette/Vaping Use Never Used 12/11/23 09:41 Thrive Assessment: Date of Thrive Assessment Date Thrive assessed 08/31/23 12/11/23 09:26 Const General: cooperative, comfortable, no acute distress, alert and awake; No confusion Orientation/consciousness: oriented to person, oriented to place, patient oriented x3 and No confusion HENMT Head: Yes normocephalic Ears: external ears normal and TM's normal bilaterally Face and sinus: No sinus tenderness Mouth: Normal oral and palatal mucosa present and tongue normal Teeth and gingiva: dentition normal and gingiva normal Throat: Yes posterior oropharynx normal, Yes tonsils normal and Yes uvula midline Eyes Conjunctivae: conjunctivae normal Sclerae: sclerae normal Pupils: Equal, round and reactive pupils present EOM: EOMs intact bilaterally Direct Ophthalmoscopy: No no photophobia Neck Neck: Yes no lymphadenopathy, No tender and Yes no JVD Thyroid: Thyroid normal Carotids: no bruits Chest Chest palpation & inspection: no tenderness Resp Effort & Inspection: normal respiratory effort, no audible wheezes, not labored and no stridor Auscultation: no crackles, no rales, no rhonchi and no wheezes Cardio Jugular venous distension: no JVD Rate: regular rate, not bradycardic and not tachycardic Rhythm: regular rhythm Bruits: no carotid bruits Peripheral pulses: Peripheral pulses 2+ throughout GI Inspection: Yes normal to inspection, No abdominal wall ecchymosis and No visible herniation Palpation (GI): Soft to palpation, nontender, no guarding, not rigid and No hepatosplenomegaly present Auscultation: normoactive bowel sounds General: Yes no CVA tenderness Back/Spine/Pelvis Back: no CVA tenderness and No back tenderness Cervical Spine: cervical ROM normal Thoracic/Lumbar Spine: thoracic and lumbar spine normal to inspection, straight leg raise negative bilaterally, No thoraco-lumbar ROM limited and No lumbar spinal tenderness Skin Lesions: no lesions Rashes: no rashes Wounds: no wounds Neuro General: oriented to person, oriented to place, patient oriented x3, CN's II-XI intact bilaterally and No confusion Cranial nerves: Yes Equal, round and reactive pupils present and Yes Normal accommodation reflex present Cognition (Neuro): normal cognition Speech: No Abnormal speech present Gait exam (Neuro): Normal gait present Motor exam (neuro): 5/5 motor strength present throughout Extrem Right upper extremity: full ROM; no cyanosis Left upper extremity: full ROM; no cyanosis Right lower extremity: no edema Left lower extremity: no edema Psych Appearance: grossly normal Mental Status: mental status grossly normal Affect: normal affect Attitude: cooperative Thought process: Normal thought process present Assessment and Plan Assessment & Plan (1) Annual physical exam: Code(s): Z00.00 - Encounter for general adult medical examination without abnormal findings (2) COPD (chronic obstructive pulmonary disease): Comment: Known case of severe chronic obstructive pulmonary disorder. As per spirometry, her COPD is very severe, but stable. Currently doing very well. Code(s): J44.9 - Chronic obstructive pulmonary disease, unspecified Qualifiers: COPD type: emphysema Emphysema type: unspecified Qualified Code(s): J43.9 - Emphysema, unspecified Plan: Continues to follow pulmonology. Continues on maintenance inhaler shows have been helpful to keep down on her COPD symptoms. She reports her COPD symptoms have been fairly well controlled with the exception of times of high humidity and air quality fluctuations. (3) Non-small cell lung cancer: Code(s): C34.90 - Malignant neoplasm of unspecified part of unspecified bronchus or lung Qualifiers: Laterality: right Qualified Code(s): C34.91 - Malignant neoplasm of unspecified part of right bronchus or lung Plan: Followed by Oncology, has finished radiation treatment and has upcoming follow-up with Oncology. Will be following up with her thoracic surgeon for continued surveillance chest imaging. (4) HTN (hypertension): Code(s): I10 - Essential (primary) hypertension Qualifiers: Hypertension type: primary hypertension Qualified Code(s): I10 - Essential (primary) hypertension Plan: Patient's blood pressure slightly elevated today in office, she reports that home blood pressure readings are 130s to 140 systolic. patient asymptomatic. Will increase her lisinopril dose to 20 mg Goal blood pressure is to be below 140/90 (5) HLD (hyperlipidemia): Code(s): E78.5 - Hyperlipidemia, unspecified Qualifiers: Hyperlipidemia type: mixed hyperlipidemia Qualified Code(s): E78.2 - Mixed hyperlipidemia Plan: Patient's most recent fasting lipid panel showing very elevated total cholesterol and LDL. We have started simvastatin 10 mg. Will recheck fasting lipids in 4 months to assure normalization of total cholesterol and LDL. Goal LDL to be below 160 (6) Vitreous floaters of right eye: Code(s): H43.391 - Other vitreous opacities, right eye Plan: Willing to see replenisher. (7) Breast cancer screening: Code(s): Z12.39 - Encounter for other screening for malignant neoplasm of breast Qualifiers: Breast cancer screening modality: mammogram Qualified Code(s): Z12.31 - Encounter for screening mammogram for malignant neoplasm of breast (8) Colon cancer screening: Code(s): Z12.11 - Encounter for screening for malignant neoplasm of colon Plan: She is willing to do Cologuard again. Orders: Orders Lipid Panel 12/11/23 E78.2 - Mixed hyperlipidemia Comprehensive [place]. Panel Fast 12/11/23 E78.2 - Mixed hyperlipidemia Microalbumin, Random (w Creat) 12/11/23 I10 - Essential (primary) hypertension MM screening mammo BI 12/11/23 Z12.31 - Encounter for screening mammogram for malignant neoplasm of breast, Z12.39 - Encounter for other screening for malignant neoplasm of breast Referrals Cologuard Test Z12.11 - Encounter for screening for malignant neoplasm of colon Ophthalmology Referral H43.391 - Other vitreous opacities, right eye Medications: New lisinopril 20 mg PO DAILY 90 days 90 tabs 1RF I10 - Essential (primary) hypertension Discontinued lisinopril Discontinued Reason: Doctor's Order 10 mg PO DAILY 90 tabs 1RF I10 - Essential (primary) hypertension Patient Instructions: Goal: Blood pressure be below 140/90, LDL to be below 160 total cholesterol to be below 230 Barriers: Adherence to physical activity and healthy eating habits Coding Level of Care Code Est Pt Prev Care >65y(91770) Diagnoses Annual physical exam Z00.00 Pulmonary emphysema, unspecified emphysema type J43.9 COPD type: emphysema Emphysema type: unspecified Non-small cell cancer of right lung C34.91 Laterality: right Primary hypertension I10 Hypertension type: primary hypertension Mixed hyperlipidemia E78.2 Hyperlipidemia type: mixed hyperlipidemia Vitreous floaters of right eye H43.391 Encounter for screening mammogram for malignant neoplasm of breast Z12. Breast cancer screening modality: mammogram Colon cancer screening Z12.11
== END 2023-12-11 10:06 | disposition home or self-care (01) ==
PROVIDERS: PCP Physician Assistant; Visit Provider Physician Assistant
DX: Z00.00 Encounter for general adult medical examination without abnormal findings (principal); J43.9 Emphysema, unspecified; C34.91 Malignant neoplasm of unspecified part of right bronchus or lung; I10 Essential (primary) hypertension; E78.2 Mixed hyperlipidemia; H43.391 Other vitreous opacities, right eye; Z12.31 Encounter for screening mammogram for malignant neoplasm of breast; Z12.11 Encounter for screening for malignant neoplasm of colon
CPT/HCPCS: 99397

== ENCOUNTER 2023-12-26 09:11 | Outpatient (REF) | payer MEDICARE, SELFPAY | END 2023-12-26 09:12 | disposition home or self-care (01) | LOC: HO.MAMMO 09:11 | PROVIDERS: PCP Physician Assistant; Visit Provider Physician Assistant | DX: Z12.31 Encounter for screening mammogram for malignant neoplasm of breast (principal) | CPT/HCPCS: 77063; 77067 ==

== ENCOUNTER → 2023-12-26 09:15 | Outpatient (BNV) | payer MEDICARE, SELFPAY | PROVIDERS: PCP Physician Assistant; Visit Provider Radiology Diagnostic Radiology | DX: Z12.31 Encounter for screening mammogram for malignant neoplasm of breast (principal) | CPT/HCPCS: 77063; 77067 ==

== ENCOUNTER 2024-01-09 08:56 | Outpatient (REF) | payer MEDICARE, SELFPAY ==
[2024-01-09 09:54] LABS: Alanine Aminotransferase 27 U/L (0-31); Albumin Level 4.3 g/dL (3.5-5.0); Alkaline Phosphatase 118 U/L (39-117); Anion Gap 12 (12-20); Aspartate Amino Transferase 26 U/L (5-31); Bilirubin Total 0.4 mg/dL (0.0-1.0); Blood Urea Nitrogen 19 mg/dL (9-16); Calcium 9.9 mg/dL (8.4-10.2); Carbon Dioxide 29 mmol/L (22-29); Chloride 104 mmol/L (96-108); Cholesterol 231 mg/dL (<200); Estimated Glomerular Filt Rate > 60; Glucose Fasting 83 mg/dL (60-99); HDL Cholesterol 95 mg/dL (>40); LDL Cholesterol Calculated 116 mg/dL (<100); Sodium 141 mmol/L (135-145); Total Protein 7.2 g/dL (6.5-8.0); Triglycerides 103 mg/dL (<150)
[2024-01-09 10:50] LABS: Creatinine Urine 31.57 mg/dL; Microalbum/Creatinine Ratio Ur 98.1 ug/mg cr (<30)
== END 2024-01-09 08:57 | disposition home or self-care (01) ==
LOC: HO.LAB 08:56
PROVIDERS: PCP Physician Assistant; Visit Provider Internal Medicine Endocrinology, Diabetes & Metabolism
DX: E78.2 Mixed hyperlipidemia (principal); I10 Essential (primary) hypertension
CPT/HCPCS: 36415; 80053; 80061; 82043; 82570

== ENCOUNTER 2024-01-10 08:52 | Outpatient (AMB) | payer MEDICARE, SELFPAY ==
--- NOTE | 2024-01-10 09:16 | AM.OFFVISNUR ---
Intake Visit Reasons: Prolia #1 Allergies No Known Allergies Allergy (Verified 12/11/23 09:36) Office Meds Prolia 60 mg/mL subcutaneous syringe Performing Provider: Suraj Penny MD Performing Location: [facility] Endocrinology Administered by: Selina García LPN on 01/10/24 09:16 Dose Route Admin Location Dispensed Lot Number Expiration Date NDC Cost Accountant 60 mg subcut Left upper arm 1 mL [id number] 12/09/25 AMGEN Assessment & Plan Assessment & Plan Orders: Orders AMB Denosumab Injection Patient Supplied Today M81.0 - Age-related osteoporosis without current pathological fracture Medications: New Prolia (denosumab) 60 mg subcut ONCE 1 mL 0RF NS M81.0 - Age-related osteoporosis without current pathological fracture
== END 2024-01-10 09:15 | disposition home or self-care (01) ==
PROVIDERS: PCP Physician Assistant; Visit Provider Internal Medicine Endocrinology, Diabetes & Metabolism
DX: M81.0 Age-related osteoporosis without current pathological fracture (principal)

== ENCOUNTER → 2024-01-10 08:52 | Outpatient (BNVA) | payer MEDICARE, SELFPAY | PROVIDERS: PCP Physician Assistant; Visit Provider Internal Medicine Endocrinology, Diabetes & Metabolism | DX: M81.0 Age-related osteoporosis without current pathological fracture (principal) | CPT/HCPCS: 96372; J0897 ==

== ENCOUNTER 2024-01-29 09:26 | Outpatient (AMB) | payer MEDICARE, SELFPAY ==
[2024-01-29 09:31] VITALS: BP 102/70; PULSE 102; O2SAT 95; BMI 24.9
--- NOTE | 2024-01-29 09:31 | MHC.OFFVIS ---
Vital Signs 01/29/24 09:31 Height 5 ft 6 in Weight 154 lb 5.177 oz BMI 24.9 BP 102/70 Blood Pressure Location Lt brachial Position Sitting Pulse 102 H Pulse Source Pulse Oximeter Pulse Oximetry (%) 95 Oxygen Delivery Method Room Air Intake Visit Reasons: COPD Intake Note: pt is here for follow up and states she is under [facility] and [facility] issue, needs new MD since Dr. Simmons cannot see her any longer. She is due for ct scan. Grid Caster Required: No Allergies No Known Allergies Allergy (Verified 01/29/24 09:49) Medication List - Last Reconciled 01/29/24 by Trenton Fernandez MD albuterol sulfate 90 mcg/actuation 2 puffs inhalation Q4-6H PRN 30 days Breo Ellipta 200-25 mcg/dose (fluticasone furoate-vilanterol) 1 ea PO DAILY NS calcium carbonate (Oyster Shell Calcium 500) 500 mg PO DAILY 90 days cholecalciferol (vitamin D3) 50 mcg PO DAILY 90 days denosumab (Prolia) 60 mg subcut Q0YUIUSD diphenhydramine HCl 25 mg PO BEDTIME Incruse Ellipta 62.5 mcg/actuation (umeclidinium) 1 inh PO DAILY NS lisinopril 20 mg PO DAILY 90 days simvastatin 10 mg PO DAILY Do you need a note to return to daycare/school/sports/work: No HPI HPI COPD: Details: BACK GROUND: Surgical note : 72-year-old woman with severe COPD/emphysema and poor pulmonary function testing who I diagnosed with a right upper lobe adenocarcinoma with navigational bronchoscopy in April of 2022. This was a clinical T1b N0 M0 lung cancer. She was referred for stereotactic radiation at [facility] and had SBRT from [id number] and tolerated it quite well by report. She had follow-up with the radiation oncologist at [facility] but has seen a different provider each time due to some provider turn over and did not appreciate her experience for that reason. I did review her most recent CT scan that was done in September 2022, at [facility] which shows no recurrence . Zoey comes for her 6 months follow-up for COPD. She has remained stable and comfortable, with her usual shortness of breath on walking around and especially climbing stairs. Luckily she has had no respiratory infection. Her general condition is good. She likes to have ongoing pulmonary surveillance for lung cancer, to be continued here at our institute. [facility] Medical History Colon cancer screening Vitamin D deficiency Hypoxemia COPD (chronic obstructive pulmonary disease) Community acquired pneumonia Pulmonary nodule Osteoporosis HTN (hypertension) Personal history of nicotine dependence Surgical History History of parathyroidectomy (~2007) Family History Father No problems noted. Mother No problems noted. Social History Household Members: Spouse and Family Household Members Other:: daughter and her friend Housing: House Do you presently have visiting nurse or other home services: No Alcohol intake: current Alcohol intake frequency: holidays/special occasions only Patient Tobacco Use Status: Former Tobacco user Tobacco use type: Cigarette Years Smoked: 30 e-Cigarette/Vaping Use: Never Used Second Hand Smoke Exposure: Yes service: No Current occupational status: retired Cognitive needs: No Hearing needs: No Vision needs: Yes (glasses) Review of Systems Const All systems reviewed & are unremarkable except as noted in HPI and below Eyes Reports no additional complaints ENT Reports no additional complaints Card Denies chest pain, Denies irregular heart rhythm and Denies leg edema Resp Reports as per HPI GI Reports no additional complaints Reports no additional complaints Musc Reports no additional complaints Skin/Breast Reports system reviewed and no additional complaints, except as documented Neuro Reports no additional complaints Psych Reports no additional complaints Physical Exam Vital Signs: Last Vital Signs Pulse 102 H 01/29/24 09:31 BP 102/70 01/29/24 09:31 Pulse Ox 95 01/29/24 09:31 Oxygen Delivery Method Room Air 01/29/24 09:31 BMI result Body Mass Index 24.9 Const General: healthy appearing, comfortable, no acute distress, alert and awake Orientation/consciousness: patient oriented x3 HEENT Head: Yes normal to inspection General nose exam: No nasal polyps present and No nasal discharge present Face and sinus: Yes sinuses nontender Mouth: oropharynx normal Throat: Yes posterior oropharynx normal Eyes General: appearance normal, both eyes and all related structures Neck Neck: Yes normal visual inspection, Yes no lymphadenopathy, Yes trachea midline and Yes no JVD Thyroid: Thyroid normal Chest Chest palpation & inspection: normal inspection of the chest, normal palpation of entire chest wall and no tenderness Resp Other: Percussion note hyper-resonant, breath sounds are distant with prolonged expiratory phase. No wheezes rhonchi or crepitations are heard. Cardio Palpation: normal PMI Rate: regular rate Rhythm: regular rhythm Heart sounds: no gallops and no murmurs GI Palpation (GI): Soft to palpation, nontender, No hepatosplenomegaly present and no masses Auscultation: normal bowel sounds Back/Spine/Pelvis Thoracic/Lumbar Spine: thoracic and lumbar spine normal to inspection Skin General skin exam: no rashes or lesions noted Neuro General: patient oriented x3 and no focal motor deficits Cranial nerves: Yes CN's II-XII intact bilaterally Extrem General: Yes normal to inspection, Yes no clubbing, cyanosis or edema and Yes no calf tenderness Psych Appearance: grossly normal and well kempt Speech and movement: Normal speech and movement present Office Procedures Spirometry Testing Spirometry Comments: In office spirometry completed with results given to Dr Fernandez. 60154- Spirometry Results Reviewed Results Reviewed: SPIROMETRY 04/16/2021 01/29/2024 FVC 58 % 58 FEV1 27 % 34 FEF 25-75 10 % 15 Assessment & Plan Assessment & Plan (1) COPD (chronic obstructive pulmonary disease): Comment: Known case of severe chronic obstructive pulmonary disorder. As per spirometry, her COPD is very severe, but stable., and numbers actually slightly increased. Currently doing very well. Code(s): J44.9 - Chronic obstructive pulmonary disease, unspecified Category: Medical Qualifiers: COPD type: emphysema Emphysema type: unspecified Qualified Code(s): J43.9 - Emphysema, unspecified Plan: CONTINUE TO USE Breo 200-25 1 inhalation daily Incruse Ellipta 1 inhalation daily Albuterol HFA 2 puffs Q 6 hours p.r.n. (2) Hypoxemia: Comment: She is known to have Nocturnal Hypoxemia + exercise induced hypoxemia( does not use oxygen for walking around ) Code(s): R09.02 - Hypoxemia Category: Medical Plan: Use O2 2 L/minute at night and p.r.n. during the daytime. (3) Cancer of upper lobe of right lung: Comment: 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 Has been treated with R/Th x 5 sessions with resolution of the nodule. doing well . There has been no recurrence so far. Code(s): C34.11 - Malignant neoplasm of upper lobe, right bronchus or lung Category: Medical Plan: Patient will be entered in our lung screening program, as she would needs surveillance for at least 2 more years. Orders: Orders AMB Spirometry Testing Today J43.9 - Emphysema, unspecified Coding Level of Care Code Est Pt Level 3 (45583) Diagnoses Pulmonary emphysema, unspecified emphysema type J43.9 COPD type: emphysema Emphysema type: unspecified Hypoxemia R09.02 Cancer of upper lobe of right lung C34.11 CPT Codes Spirometry - CPT: 27487- Spirometry ([id number])
== END 2024-01-29 10:08 | disposition home or self-care (01) ==
PROVIDERS: PCP Physician Assistant; Visit Provider Internal Medicine
DX: J43.9 Emphysema, unspecified (principal); R09.02 Hypoxemia; C34.11 Malignant neoplasm of upper lobe, right bronchus or lung
CPT/HCPCS: 94010; 99213

== ENCOUNTER → 2024-01-29 09:26 | Outpatient (BNVA) | payer MEDICARE, SELFPAY | PROVIDERS: PCP Physician Assistant; Visit Provider Internal Medicine | DX: J43.9 Emphysema, unspecified (principal); R09.02 Hypoxemia; C34.11 Malignant neoplasm of upper lobe, right bronchus or lung; Z99.81 Dependence on supplemental oxygen | CPT/HCPCS: 94010; 99212 ==

== ENCOUNTER 2024-03-08 13:37 | Outpatient (REF) | payer MEDICARE, SELFPAY ==
--- NOTE | ~2024-03-08 | CT_ITS ---
EXAMINATION: CT CHEST WITHOUT CONTRAST CLINICAL INFORMATION: Right upper lobe adenocarcinoma treated with radiation COMPARISON: PET/CT on 03/01/2022 TECHNIQUE: Multidetector volumetric CT imaging of the chest was done. Axial MIP volume rendering provided. Sagittal and coronal reformatted images were obtained. This CT examination was performed using dose optimization techniques as appropriate, variously including the following: *Automated exposure control *Adjustment of mA and/or kV according to patient size (this includes techniques or standardized protocols for targeted exams where dose is matched to indication/reason for exam; i.e. extremities or head) *Use of iterative reconstruction technique DLP: 109 mGy-cm FINDINGS: LUNGS: Moderate apical predominant emphysematous changes. There is linear consolidation/scarring in the right posterior apex as well as the right middle lobe. There is scarring in the lingula. There are no new or suspicious pulmonary nodules. MEDIASTINUM: The mediastinum is normal. CORONARY ARTERY CALCIFICATION: Moderate PLEURA: There is no pleural effusion. No pleural mass or thickening. AXILLA: No lymphadenopathy. UPPER ABDOMEN: Punctate nonobstructing calculus in the left upper pole. OSSEOUS STRUCTURES: Unremarkable. CT/CT chest wo IV con IMPRESSION: Posttreatment changes in the right upper lobe. No new or suspicious pulmonary nodules. Fleischner guidelines were followed. Electronically signed by: Mariela Servin MD 03/19/2024 04:45 PM EDT
== END 2024-03-08 13:38 | disposition home or self-care (01) ==
LOC: HO.CT 13:37
PROVIDERS: PCP Physician Assistant; Visit Provider Internal Medicine
DX: C34.11 Malignant neoplasm of upper lobe, right bronchus or lung (principal); J43.9 Emphysema, unspecified
CPT/HCPCS: 71250

== ENCOUNTER 2024-04-12 10:38 | Outpatient (AMB) | payer MEDICARE, SELFPAY ==
--- NOTE | 2024-04-12 10:39 | A.OFFVIS_ITS ---
Vital Signs 04/12/24 10:42 Height 5 ft 6 in Weight 154 lb 5.177 oz BMI 24.9 BP 152/70 H Blood Pressure Location Lt brachial Position Sitting Pulse 85 Intake Visit Reasons: Fecal Abnormalities Intake Note: Zoey presents in the office as a new patient for fecal abnormalities. CC: She states that she did the cologuard and it came back positive so now she is here today. Allergies No Known Allergies Allergy (Verified 04/12/24 10:42) HPI Comments Details: HPI 74 yr old f here for assessment, pos cologuard SHe feels fine she has no GI sx she had pos cologuard no blood in stool no abn bowel habits last colonoscopy aged 42, she is unsure why she has COPD and uses 3 L at night she had XRT for lung cancer right lung she can walk around a grocery store without getting SOB ROS: Constitutional : No Weight loss, No Fever, No Chills ENT/Mouth : No sore throat, No Rhinorrhea Eyes: No Swelling, No Redness Cardiovascular : No Chest Pain, No SOB, No Edema Respiratory : No Cough, No Sputum, No Wheezing Gastrointestinal : see HPI Genitourinary : NO Dysuria, No Urinary Frequency, No Hematuria, No Urgency Musculoskeletal :No joint pain, No Myalgias, No Joint Swelling Skin : No Skin Lesions, No rash Neuro : No Weakness, No Numbness, No Dizziness, No Headache Psych : No Anxiety/Panic, No Depression Heme/Lymph: No Bruising, No Lymphadenopathy Endocrine : No Polyuria, No Polydipsia All other systems reviewed and are negative. MEDICAL Hx Colon cancer screening Vitamin D deficiency Hypoxemia COPD (chronic obstructive pulmonary disease) Community acquired pneumonia Pulmonary nodule Osteoporosis HTN (hypertension) Personal history of nicotine dependence Surgical History History of parathyroidectomy (~2007) Family History Father No problems noted. Mother No problems noted. Social History Household Members: Spouse and Family Household Members Other:: daughter and her friend Housing: House Do you presently have visiting nurse or other home services: No Alcohol intake: current Alcohol intake frequency: holidays/special occasions only Patient Tobacco Use Status: Former Tobacco user Tobacco use type: Cigarette Years Smoked: 30 e-Cigarette/Vaping Use: Never Used Second Hand Smoke Exposure: Yes service: No Current occupational status: retired Cognitive needs: No Hearing needs: No Vision needs: Yes (glasses) EXAM: GENERAL: The patient is well developed and nontoxic. VITAL SIGNS:see workflow HEENT: Nonicteric sclerae, PERRLA, EOMI. Oropharynx clear. Moist mucous membranes. Conjunctivae appear well perfused. No thyroid mass. CHEST: Chest wall is nontender. HEART: Regular rate and rhythm without murmurs. LUNGS: reduced breath sounds ABDOMEN: Soft, positive bowel sounds, nontender, no organomegaly.no flank tenderness SKIN: No rash, no excessive bruising, petechiae, or purpura. NEUROLOGIC: Cranial nerves II-XII intact without motor/sensory deficit. Psych: normal affect A/P: 1/ pos cologuard hx of LUng ca, uses home O2 but has fair exercise tolerance prob at least 4 METS PLAN: 1/ colonoscopy, pre op anesthesia, clearance from dr Jim bonilla sent [facility] Medical History Colon cancer screening Vitamin D deficiency Hypoxemia COPD (chronic obstructive pulmonary disease) Community acquired pneumonia Pulmonary nodule Osteoporosis HTN (hypertension) Personal history of nicotine dependence Surgical History Hx of colonoscopy History of parathyroidectomy (~2007) Family History Father No problems noted. Mother No problems noted. Social History Household Members: Spouse and Family Household Members Other:: daughter and her friend Housing: House Do you presently have visiting nurse or other home services: No Alcohol intake: current Alcohol intake frequency: holidays/special occasions only Patient Tobacco Use Status: Former Tobacco user Tobacco use type: Cigarette Years Smoked: 30 e-Cigarette/Vaping Use: Never Used Second Hand Smoke Exposure: Yes service: No Current occupational status: retired Cognitive needs: No Hearing needs: No Vision needs: Yes (glasses) Physical Exam Vital Signs: Last Vital Signs Pulse 85 04/12/24 10:42 BP 152/70 H 04/12/24 10:42 BMI result Body Mass Index 24.9 Assessment & Plan Assessment & Plan (1) Positive colorectal cancer screening using Cologuard test: Code(s): R19.5 - Other fecal abnormalities Category: Medical Plan: see above Medications: New sod sulf-pot chloride-mag sulf 1.479-0.188- 0.225 gram (Sutab) PO PER PKG DIR 24 tabs 0RF Coding Level of Care Code New Pt Level 4 (35041) Diagnoses Positive colorectal cancer screening using Cologuard test R19.5
[2024-04-12 10:42] VITALS: BP 152/70; PULSE 85; BMI 24.9
== END 2024-04-12 13:08 | disposition home or self-care (01) ==
LOC: HO.HGI 10:38
PROVIDERS: PCP Physician Assistant; Visit Provider Internal Medicine Gastroenterology
DX: R19.5 Other fecal abnormalities (principal)
CPT/HCPCS: 99204

== ENCOUNTER → 2024-04-12 10:38 | Outpatient (BNVA) | payer MEDICARE, SELFPAY | PROVIDERS: PCP Physician Assistant; Visit Provider Internal Medicine Gastroenterology | DX: R19.5 Other fecal abnormalities (principal) | CPT/HCPCS: 99202 ==

== ENCOUNTER 2024-04-15 09:48 | Outpatient (AMB) | payer MEDICARE, SELFPAY ==
[2024-04-15 10:00] VITALS: BP 144/80; PULSE 62; O2SAT 94; BMI 24.7
--- NOTE | 2024-04-15 10:00 | MHC.PC.OV ---
Vital Signs 04/15/24 10:00 Height 5 ft 6 in Weight 153 lb 4 oz BMI 24.7 BP 144/80 H Blood Pressure Location Lt brachial Position Sitting Pulse 62 Pulse Source Pulse Oximeter Pulse Oximetry (%) 94 Oxygen Delivery Method Room Air Intake Visit Reasons: f/u HLD/ HTN Accompanied by: Self / Same As Patient Allergies No Known Allergies Allergy (Verified 04/15/24 10:09) Medication List - Last Reconciled 04/15/24 by Shay Bryant PA-C albuterol sulfate 90 mcg/actuation 2 puffs inhalation Q4-6H PRN 30 days Breo Ellipta 200-25 mcg/dose (fluticasone furoate-vilanterol) 1 ea PO DAILY NS calcium carbonate (Oyster Shell Calcium 500) 500 mg PO DAILY 90 days cholecalciferol (vitamin D3) 50 mcg PO DAILY 90 days denosumab (Prolia) 60 mg subcut [id number] diphenhydramine HCl 25 mg PO BEDTIME Incruse Ellipta 62.5 mcg/actuation (umeclidinium) 1 inh PO DAILY NS lisinopril 20 mg PO DAILY 90 days simvastatin 10 mg PO DAILY sod sulf-pot chloride-mag sulf 1.479-0.188- 0.225 gram (Sutab) PO PER PKG DIR Tobacco use date assessed: 08/31/23 Fall risk assessment: No Falls in past year Last assessed Fall Risk: 04/15/24 Dental Screening Dental Screen Date: 08/31/23 HPI f/u HLD/ HTN HPI Details Patient is 74-year-old female here today for a follow-up visit. ? Patient has significant history for moderate COPD, hypertension, osteoporosis, Former smoker, recent diagnosis of non-small cell lung cancer of the right upper lobe. undergoing radiation treatment at [facility] and will have continue surveillance. COPD:? Patient has been followed by pulmonology and continues on maintenance inhaler.? She reports her stop smoking which has helped her pulmonary status. Now on O2 at night, continues on Breo and Incruse Report average spO2- 95%, .? . Lung cancer: Has done radiation treatment and does follow-up with her oncologist. Her lung nodule has been stable. She will be following the lung cancer screening program at [facility] and will be set up to see radiology Oncology at [facility] as well. Also followed by thoracic surgeon and be continuing to get surveillance imaging. .. Hypertension:? Blood pressure today in office slightly elevated, at last visit we did increase her lisinopril to 20 mg. Does report blood pressures at home are still slightly above 140 systolic. PLAN: Will add on hydrochlorothiazide for better blood pressure control Note patient did have positive Cologuard and will be set up for a colonoscopy in near future. [facility] Medical History Colon cancer screening Vitamin D deficiency Hypoxemia COPD (chronic obstructive pulmonary disease) Community acquired pneumonia Pulmonary nodule Osteoporosis HTN (hypertension) Personal history of nicotine dependence Surgical History Hx of colonoscopy History of parathyroidectomy (~2007) Family History Father No problems noted. Mother No problems noted. Social History Household Members: Spouse and Family Household Members Other:: daughter and her friend Housing: House Do you presently have visiting nurse or other home services: No Alcohol intake: current Alcohol intake frequency: holidays/special occasions only Patient Tobacco Use Status: Former Tobacco user Tobacco use type: Cigarette Years Smoked: 30 e-Cigarette/Vaping Use: Never Used Second Hand Smoke Exposure: Yes service: No Current occupational status: retired Cognitive needs: No Hearing needs: No Vision needs: Yes (glasses) Questionnaire Thrive Questionnaire Date Thrive assessed: 08/31/23 CHEY-7 AMB Questionnaire CHEY-7 Date CHEY - 7 assessed: 08/31/23 Source: Developed by Drs. Suraj Turk, Chantelle Bradshaw, Zackery Gallo and colleagues, with an educational hallie from [employer]. Review of Systems Const Denies headache(s) Eyes Denies loss of vision ENT Denies vertigo, Denies dizziness, Denies headache(s) and Denies sore throat Card Denies chest pain, Denies leg edema and Denies lightheadedness Resp Denies cough, Denies hemoptysis and Denies wheezing GI Denies abdominal pain, Denies melena, Denies constipation, Denies diarrhea and Denies vomiting Denies urinary frequency, Denies dysuria and Denies urinary urgency Musc Denies arthralgias, Denies joint swelling, Denies numbness and Denies tingling Neuro Denies Abnormal speech present, Denies behavioral changes, Denies vertigo, Denies dizziness, Denies headache(s), Denies loss of vision, Denies memory loss, Denies numbness and Denies tingling Psych Denies anxiety, Denies behavioral changes, Denies depression, Denies memory loss and Denies panic attacks Juan/Lymph Denies easy bleeding and Denies easy bruising Aller/Immun Denies wheezing Physical exam (Primary Care) Vital Signs: Last Vital Signs Pulse 79 04/15/24 10:00 BP 144/80 H 04/15/24 10:00 BMI result Body Mass Index 24.7 Tobacco/Smoking Status: Tobacco use Status Tobacco use date assessed 08/31/23 04/15/24 10:01 Patient Tobacco Use Status Former Tobacco user 04/15/24 10:01 Tobacco use type Cigarette 04/15/24 10:01 e-Cigarette/Vaping Use Never Used 04/15/24 10:01 Thrive Assessment: Date of Thrive Assessment Date Thrive assessed 08/31/23 04/15/24 10:01 Const General: healthy appearing, no acute distress, alert and awake Nutritional Appearance: well nourished Orientation/consciousness: oriented to person, oriented to place and oriented to time HENMT Ears: TM's normal bilaterally General nose exam: Normal nasal mucous membranes and turbinates present Eyes Conjunctivae: conjunctivae normal Sclerae: sclerae normal Pupils: Equal, round and reactive pupils present Neck Neck: Yes no lymphadenopathy and Yes no JVD Thyroid: Thyroid normal Carotids: no bruits Resp Effort & Inspection: normal respiratory effort and not tachypneic Auscultation: no crackles, no rales, no rhonchi and no wheezes Cardio Rate: regular rate Rhythm: regular rhythm Heart sounds: no murmurs and normal S1 and S2 GI Palpation (GI): Soft to palpation, nontender, no hepatomegaly and no splenomegaly Auscultation: normal bowel sounds Skin General skin exam: no rashes or lesions noted and dry skin Neuro General: oriented to person, oriented to place and oriented to time Cranial nerves: Yes Equal, round and reactive pupils present Speech: No Abnormal speech present Gait exam (Neuro): Normal gait present Motor exam (neuro): no tremor noted Extrem Right upper extremity: full ROM Left upper extremity: full ROM Right lower extremity: full ROM; no edema Left lower extremity: full ROM; no edema Psych Mental Status: mental status grossly normal Speech and movement: Normal speech and movement present Affect: normal affect Attitude: cooperative Thought process: Normal thought process present Coding Level of Care Code Est Pt Level 4 (91937) Diagnoses Primary hypertension I10 Hypertension type: primary hypertension Mixed hyperlipidemia E78.2 Hyperlipidemia type: mixed hyperlipidemia Pulmonary emphysema, unspecified emphysema type J43.9 COPD type: emphysema Emphysema type: unspecified Colon cancer screening Z12.11 Assessment & Plan Assessment & Plan (1) HTN (hypertension): Code(s): I10 - Essential (primary) hypertension Category: Medical Qualifiers: Hypertension type: primary hypertension Qualified Code(s): I10 - Essential (primary) hypertension Plan: Patient's blood pressure slightly elevated today in office. She does report at home blood pressures remain slightly elevated. Will add on hydrochlorothiazide 12.5 for better blood pressure control. Goal blood pressure to be below 140/90 (2) HLD (hyperlipidemia): Code(s): E78.5 - Hyperlipidemia, unspecified Category: Medical Qualifiers: Hyperlipidemia type: mixed hyperlipidemia Qualified Code(s): E78.2 - Mixed hyperlipidemia Plan: Patient's most recent lipid panel showing excellent control over total cholesterol and LDL. Will continue her current dose of simvastatin with goal LDL to remain below 130. (3) COPD (chronic obstructive pulmonary disease): Comment: Known case of severe chronic obstructive pulmonary disorder. As per spirometry, her COPD is very severe, but stable., and numbers actually slightly increased. Currently doing very well. Code(s): J44.9 - Chronic obstructive pulmonary disease, unspecified Category: Medical Qualifiers: COPD type: emphysema Emphysema type: unspecified Qualified Code(s): J43.9 - Emphysema, unspecified Plan: Patient reports her pulmonary status has been stable with her current maintenance inhaler only p.r.n. use of her albuterol inhaler. She continues to follow pulmonology here in [place]. Will be following up with Radiology Oncology at [facility] for her history of lung cancer. (4) Colon cancer screening: Code(s): Z12.11 - Encounter for screening for malignant neoplasm of colon Category: Medical Plan: Patient does have a positive Cologuard. Has followed up with [place] gastroenterology will be due for colonoscopy this 05/31/2024 Orders: Orders Lipid Panel Today E78.2 - Mixed hyperlipidemia Microalbumin, Random (w Creat) Today E78.2 - Mixed hyperlipidemia Complete Blood Count no Diff Today E78.2 - Mixed hyperlipidemia Comprehensive [place]. Panel Fast Today E78.2 - Mixed hyperlipidemia Vitamin D 25-OH Total Today E55.9 - Vitamin D deficiency, unspecified Medications: New lisinopril-hydrochlorothiazide 20-12.5 mg 1 tab PO DAILY 90 days 90 tabs 1RF I10 - Essential (primary) hypertension Discontinued lisinopril Discontinued Reason: Doctor's Order 20 mg PO DAILY 90 days 90 tabs 1RF I10 - Essential (primary) hypertension Patient Instructions: Goal: Blood pressure to remain below 140/90 Barriers: Adherence to physical activity and healthy eating habits
== END 2024-04-15 10:27 | disposition home or self-care (01) ==
LOC: HO.HMCH 09:49
PROVIDERS: PCP Physician Assistant; Visit Provider Physician Assistant
DX: I10 Essential (primary) hypertension (principal); E78.2 Mixed hyperlipidemia; J43.9 Emphysema, unspecified; Z12.11 Encounter for screening for malignant neoplasm of colon

== ENCOUNTER → 2024-04-15 09:48 | Outpatient (BNVA) | payer MEDICARE, SELFPAY | PROVIDERS: PCP Physician Assistant; Visit Provider Physician Assistant | DX: I10 Essential (primary) hypertension (principal); E78.2 Mixed hyperlipidemia; J43.9 Emphysema, unspecified | CPT/HCPCS: 99212 ==

== ENCOUNTER 2024-04-25 09:41 | Outpatient (AMB) | payer MEDICARE, SELFPAY ==
--- NOTE | 2024-04-25 09:47 | MHC.OFFVIS ---
Vital Signs 04/25/24 09:48 Height 5 ft 5.94 in Weight 157 lb 6.561 oz BMI 25.5 BP 102/70 Blood Pressure Location Lt brachial Position Sitting Pulse 47 L Pulse Source Pulse Oximeter Intake Visit Reasons: f/u osteoporosis-confirmed Intake Note: Patient present today for Osteoporosis follow up. 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 The patient last saw Dr. Almaguer on 01/09/2023 Of note, she was recently diagnosed with adenocarcinoma of the lung and completed radiation therapy. First diagnosed with Osteoporosis many years ago, she does not recall. Was treated with Alendronate from 2020-mid 2021. We stopped her Alendroante after her initial visit with me in order to complete a biochemical evaluation for secondary causes of Osteoporosis. Blood work was negative for any secondary causes and her hyperparathyroidism appears to be cured. No history of pathologic fracture or ONJ. Has 2-3 servings of dietary calcium per day in the form of cheese. Takes Calcium supplement 500 mg daily. Takes 2000 IU of Vitamin D daily. Uses glucocorticoids occasionally for COPD flares. Denies ever using PPI, anticoagulant, or antiepileptic medication. Does weight bearing exercise 5 days per week in the form of walking. 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 Menses was always regular. She is . She breastfed 6 months in total. Menopause was age 57. She did use HRT for 1 year. Denies history of Kidney stones. Has a family history of Osteoporosis in her Grandmother and Mother. UTD on dental cleanings and sees dentist every 6 months. No planned upcoming dental work or extractions. DXA: 12/01/2020 FINDINGS: AP SPINE L1-L3 (excluding L4): The data of L1-L4 has been changed to exclude the L4 vertebral body, because levocurvature and degenerative changes at this level may cause overestimation of lumbar spine density. BMD 0.748 g/cm2, Z-score -2.0, T-score -3.5, osteoporosis. LEFT FEMUR, NECK: BMD 0.686 g/cm2, Z-score -1.0, T-score -2.5, osteoporosis. LEFT FEMUR, TOTAL: BMD 0.718 g/cm2, Z-score -1.0, T-score -2.3, osteopenia. Labs: Laboratory Tests 04/14/22 04/14/22 04/14/22 10:01 10:01 10:01 Sodium 142 Potassium 4.7 Creatinine 0.79 Estimated GFR > 60 Phosphorus 3.9 Alkaline Phosphatase 107 D Alk Phos Bone Specific 13.4 Albumin 4.5 D PEP Interpretation SEE NOTE 25-OH Vitamin D Total 29.2 TSH 0.85 Free T4 1.20 PTH Intact 66 Calcium (PTH Intact) 9.6 Taking calcium and Vitamin D supplementation . Received Prolia injection on 01/10/2024 1st injection. Tolerated Prolia lastly. No fractures since last visit [facility] Medical History Colon cancer screening Vitamin D deficiency Hypoxemia COPD (chronic obstructive pulmonary disease) Community acquired pneumonia Pulmonary nodule Osteoporosis HTN (hypertension) Personal history of nicotine dependence Surgical History Hx of colonoscopy History of parathyroidectomy (~2007) Family History Father No problems noted. Mother No problems noted. Social History Household Members: Spouse and Family Household Members Other:: daughter and her friend Housing: House Do you presently have visiting nurse or other home services: No Alcohol intake: current Alcohol intake frequency: holidays/special occasions only Patient Tobacco Use Status: Former Tobacco user Tobacco use type: Cigarette Years Smoked: 30 e-Cigarette/Vaping Use: Never Used Second Hand Smoke Exposure: Yes service: No Current occupational status: retired Cognitive needs: No Hearing needs: No Vision needs: Yes (glasses) Physical Exam Vital Signs: Last Vital Signs Pulse 47 L 04/25/24 09:48 BP 102/70 04/25/24 09:48 BMI result Body Mass Index 25.5 Assessment & Plan Assessment & Plan (1) Osteoporosis: Comment: (Bone Dexa Lumbar T-score: -3.5 on 11/2020) Code(s): M81.0 - Age-related osteoporosis without current pathological fracture Category: Medical Qualifiers: Osteoporosis type: age-related Presence of current pathological fracture: without current pathological fracture Qualified Code(s): M81.0 - Age-related osteoporosis without current pathological fracture Plan: This is a 74-year-old white female with a history of osteoporosis and prior history of primary hyperparathyroidism as well as lung cancer with radiation treatment. Other secondary causes ruled out. The patient is currently on calcium and vitamin-D as well as Prolia. Plan is to continue the current management. Patient is due for Prolia injection at the end of June 2024. Coding Level of Care Code Est Pt Level 3 (44598) Diagnoses Age-related osteoporosis without current pathological fracture M81.0 Osteoporosis type: age-related Presence of current pathological fracture: without current pathological fracture
[2024-04-25 09:48] VITALS: BP 102/70; PULSE 47; BMI 25.5
== END 2024-04-25 10:12 | disposition home or self-care (01) ==
PROVIDERS: PCP Physician Assistant; Visit Provider Internal Medicine Endocrinology, Diabetes & Metabolism
DX: M81.0 Age-related osteoporosis without current pathological fracture (principal)
CPT/HCPCS: 99213

== ENCOUNTER → 2024-04-25 09:41 | Outpatient (BNVA) | payer MEDICARE, SELFPAY | PROVIDERS: PCP Physician Assistant; Visit Provider Internal Medicine Endocrinology, Diabetes & Metabolism | DX: M81.0 Age-related osteoporosis without current pathological fracture (principal); E27.49 Other adrenocortical insufficiency | CPT/HCPCS: 99212 ==

== ENCOUNTER 2024-05-13 11:08 | Outpatient (AMB) | payer MEDICARE, SELFPAY ==
[2024-05-13 11:11] VITALS: BP 104/60; PULSE 120; O2SAT 94; BMI 21.9
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
== END 2024-05-13 11:35 | disposition home or self-care (01) ==
LOC: HO.HMCH 11:08
PROVIDERS: PCP Physician Assistant; Visit Provider Physician Assistant
DX: I95.2 Hypotension due to drugs (principal)

== ENCOUNTER → 2024-05-13 11:08 | Outpatient (BNVA) | payer MEDICARE, SELFPAY | PROVIDERS: PCP Physician Assistant; Visit Provider Physician Assistant | DX: I95.2 Hypotension due to drugs (principal) | CPT/HCPCS: 99212 ==

== ENCOUNTER 2024-05-14 13:55 | Outpatient (AMB) | payer MEDICARE, SELFPAY ==
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
[2024-05-14 14:03] VITALS: BP 120/64; PULSE 115; O2SAT 97; BMI 24.9
== END 2024-05-14 14:20 | disposition home or self-care (01) ==
PROVIDERS: PCP Physician Assistant; Visit Provider Internal Medicine
DX: J43.9 Emphysema, unspecified (principal); R09.02 Hypoxemia; C34.11 Malignant neoplasm of upper lobe, right bronchus or lung
CPT/HCPCS: 99213

== ENCOUNTER → 2024-05-14 13:55 | Outpatient (BNVA) | payer MEDICARE, SELFPAY | PROVIDERS: PCP Physician Assistant; Visit Provider Internal Medicine | DX: J43.9 Emphysema, unspecified (principal); C34.11 Malignant neoplasm of upper lobe, right bronchus or lung; R09.02 Hypoxemia; Z99.81 Dependence on supplemental oxygen; Z87.891 Personal history of nicotine dependence; Z79.899 Other long term (current) drug therapy | CPT/HCPCS: 99212 ==

== ENCOUNTER 2024-05-21 13:15 | Day surgery (SDC) | payer MEDICARE, SELFPAY ==
[2024-05-13 10:17] VITALS: BP 88/51; PULSE 107; RESP 16; O2SAT 95; BMI 24.4
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
[2024-05-21 13:18] VITALS: BP 161/82; PULSE 106; RESP 22; TEMP 36.1; O2SAT 92
[2024-05-21 13:37] VITALS: O2SAT 95
[2024-05-21] MEDS: Lactated Ringers 1,000 ML 100 ML IVCONT (13:37)
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
--- NOTE | 2024-05-21 14:15 | P.OPN-COLO_ITS ---
Colonoscopy Operative Note Operative Note Date of Service: 05/21/24 Narrative: Operative Information Procedure Description: Colonoscopy Indication: pos cologuard Anesthesia: MAC COLONOSCOPY Instrument: Olympus variable stiffness pediatric scope 190L Colonoscopy Monitoring: Vital signs and clinical assessment, continuous EKG monitoring, Pulse oximetry, Carbon Dioxide monitoring and blood pressure monitoring were done throughout the procedure. Colon withdrawal time was 12 minutes. Procedure: The patient was placed in the left lateral decubitis position and pre-procedure medications were administered. After a digital rectal examination of the ano-rectum, the video colonoscope was inserted into the rectum and advanced through the colon to the cecum/TI. The colonoscope was slowly withdrawn in a retrograde panoramic fashion and the colon mucosa was carefully examined including a retroflexed view of the rectum. Findings and interventions are described below. Procedure Difficulty: easy Findings: Terminal Ileum-not intubated Cecum:normal Ascending Colon: 10 mm flat polyp lifted with eleview injection and removed with cold snare Transverse Colon -normal Descending Colon:normal Sigmoid Colon: mild diverticulosis Rectum: Retroflexion with small to medium sized internal hemorrhoids seen, grade [] Anorectum - normal Intervention: cold snare and eleview injection with EMR Colon preparation: [place] Bowel Preparation Scale Right colon; 3 Transverse colon: 3 Left colon; 3 (0 = Unprepared colon segment with mucosa not seen due to solid stool that cannot be cleared. 1 = Portion of mucosa of the colon segment seen, but other areas of the colon segment not well seen due to staining, residual stool and/or opaque liquid. 2 = Minor amount of residual staining, small fragments of stool and/or opaque liquid, but mucosa of colon segment seen well. 3 = Entire mucosa of colon segment seen well with no residual staining, small fragments of stool or opaque liquid) Impression and Post Procedure Diagnosis: diverticulosis colon polyp internal hemorrhoids Plan: High fiber diet leaflet Avoid straining at stool, epsom salts and sitz bath, anusol supps or cream Repeat Colonoscopy in 4-5 years if health allows or earlier if clinically indicated Above findings were reviewed with the patient and relevant handouts were provided if indicated.
[2024-05-21 14:21] VITALS: BP 100/56; PULSE 81; RESP 16; TEMP 36.2; O2SAT 100
[2024-05-21 14:33] VITALS: BP 124/78; PULSE 85; RESP 16; O2SAT 96
[2024-05-21 14:43] VITALS: BP 124/76; PULSE 83; RESP 16; TEMP 36.3; O2SAT 95
== END 2024-05-21 15:12 | disposition home or self-care (01) ==
PROVIDERS: PCP Physician Assistant; Visit Provider Internal Medicine Gastroenterology
PROC: 0DJD8ZZ Inspection of Lower Intestinal Tract, Via Natural or Artificial Opening Endoscopic (ICD-10-PCS; CPT 45378; principal; 2024-05-21 14:00)
DX: D12.2 Benign neoplasm of ascending colon (principal); K57.30 Diverticulosis of large intestine without perforation or abscess without bleeding; K64.8 Other hemorrhoids; R19.5 Other fecal abnormalities; I10 Essential (primary) hypertension; E78.5 Hyperlipidemia, unspecified; J44.9 Chronic obstructive pulmonary disease, unspecified; Z87.891 Personal history of nicotine dependence; Z85.118 Personal history of other malignant neoplasm of bronchus and lung; Z79.02 Long term (current) use of antithrombotics/antiplatelets; Z79.899 Other long term (current) drug therapy
CPT/HCPCS: 45385; 45381; 88305; J2003; J2704

== ENCOUNTER → 2024-05-21 13:15 | Outpatient (BNV) | payer MEDICARE, SELFPAY | PROVIDERS: PCP Physician Assistant; Visit Provider Internal Medicine Gastroenterology | DX: Z12.11 Encounter for screening for malignant neoplasm of colon (principal); R19.5 Other fecal abnormalities; K63.5 Polyp of colon; K57.30 Diverticulosis of large intestine without perforation or abscess without bleeding; K64.0 First degree hemorrhoids | CPT/HCPCS: 45381; 45385 ==

== ENCOUNTER 2024-05-27 15:37 | Outpatient (AMB) | payer MEDICARE, SELFPAY ==
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
[2024-05-27 15:44] VITALS: BP 140/68; PULSE 111; O2SAT 94; BMI 25.2
== END 2024-05-27 16:16 | disposition home or self-care (01) ==
PROVIDERS: PCP Physician Assistant; Visit Provider Physician Assistant
DX: I10 Essential (primary) hypertension (principal); E78.2 Mixed hyperlipidemia; J43.9 Emphysema, unspecified

== ENCOUNTER → 2024-05-27 15:37 | Outpatient (BNVA) | payer MEDICARE, SELFPAY | PROVIDERS: PCP Physician Assistant; Visit Provider Physician Assistant | DX: I10 Essential (primary) hypertension (principal); E78.2 Mixed hyperlipidemia; J43.9 Emphysema, unspecified | CPT/HCPCS: 99212 ==

== ENCOUNTER 2024-07-08 07:53 | Outpatient (REF) | payer MEDICARE, SELFPAY ==
[2024-07-08 08:49] LABS: Hematocrit 37.9 % (37.0-47.0); Mean Corpuscular HGB Conc 31.7 g/dl (31.0-35.0); Mean Corpuscular Volume 88.3 fL (80.0-98.0); Mean Platelet Volume 9.1 fL (9.4-12.3); Platelet Count 274 X10*3/uL (160-400); Red Blood Count 4.29 X10*6/uL (4.20-5.50); Red Cell Distribution Width 14.5 % (11.0-16.0); White Blood Count 6.9 X10*3/uL (4.8-10.8)
[2024-07-08 09:42] LABS: Alanine Aminotransferase 22 U/L (0-31); Albumin Level 4.3 g/dL (3.5-5.0); Alkaline Phosphatase 94 U/L (39-117); Anion Gap 13 (12-20); Aspartate Amino Transferase 26 U/L (5-31); Bilirubin Total 0.3 mg/dL (0.0-1.0); Blood Urea Nitrogen 23 mg/dL (9-16); Calcium 9.8 mg/dL (8.4-10.2); Carbon Dioxide 27 mmol/L (22-29); Chloride 107 mmol/L (96-108); Cholesterol 236 mg/dL (<200); Estimated Glomerular Filt Rate 53; Glucose Fasting 90 mg/dL (60-99); HDL Cholesterol 102 mg/dL (>40); LDL Cholesterol Calculated 109 mg/dL (<100); Potassium 5.1 mmol/L (3.3-5.1); Sodium 142 mmol/L (135-145); Total Protein 7.6 g/dL (6.5-8.0); Triglycerides 126 mg/dL (<150)
[2024-07-08 10:02] LABS: Vitamin D 25-OH Total 39.1 ng/mL (>30)
== END 2024-07-08 07:54 | disposition home or self-care (01) ==
LOC: HO.LAB 07:53
PROVIDERS: PCP Physician Assistant; Visit Provider Internal Medicine Endocrinology, Diabetes & Metabolism
DX: E78.2 Mixed hyperlipidemia (principal); E55.9 Vitamin D deficiency, unspecified
CPT/HCPCS: 36415; 80053; 80061; 82306; 85027

== ENCOUNTER 2024-07-10 08:54 | Outpatient (AMB) | payer MEDICARE, SELFPAY ==
--- NOTE | 2024-07-10 10:16 | AM.OFFVISNUR ---
Intake Visit Reasons: Prolia #2 Allergies hydrochlorothiazide Adverse Reaction (Intermediate, Verified 05/27/24 16:06) Dizziness Office Meds Prolia 60 mg/mL subcutaneous syringe Performing Provider: Suraj Penny MD Performing Location: [facility] Endocrinology Administered by: Mirtha Cruz RN on 07/10/24 10:16 Dose Route Admin Location Dispensed Lot Number Expiration Date NDC [employer] 60 mg subcut left upper arm 1 mL [id number] 12/09/26 40947-935-07 [facility] Comments: Consent form signed by patient. Pt tolerated injection well. Pt denies any adverse reactions with previous injections. Assessment & Plan Assessment & Plan Orders: Orders AMB Denosumab Injection Patient Supplied Today M81.0 - Age-related osteoporosis without current pathological fracture Medications: New Prolia (denosumab) 60 mg subcut ONCE 1 mL 0RF NS M81.0 - Age-related osteoporosis without current pathological fracture Coding
== END 2024-07-10 09:04 | disposition home or self-care (01) ==
PROVIDERS: PCP Physician Assistant
DX: M81.0 Age-related osteoporosis without current pathological fracture (principal)

== ENCOUNTER → 2024-07-10 08:54 | Outpatient (BNVA) | payer MEDICARE, SELFPAY | PROVIDERS: PCP Physician Assistant | DX: M81.0 Age-related osteoporosis without current pathological fracture (principal) | CPT/HCPCS: 96372; J0897 ==

== ENCOUNTER 2024-07-30 09:32 | Outpatient (AMB) | payer MEDICARE, SELFPAY ==
[2024-07-30 09:36] VITALS: BP 110/68; PULSE 99; O2SAT 94; BMI 24.7
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
--- OUTSIDE RECORDS SUMMARY | 2024-07-30 10:18 | XMS_ITS | Clinical Summary ---
Author Organization [facility] it Address [address] [place] [address] Care Team Providers Care [place] Adviser Name Role Phone Chris Rey MD Primary Care Provider [phone] Surgical History Surgery Date Site/Laterality Comments PARATHYROIDECTOMY 2007 PROCEDURE: HISTORICAL PARATHYROIDECTOMY Medical History Medical History Date Comments HTN (hypertension) DX:HTN (hyper tension) Community acquired pneumonia DX: Community acquired pneumonia COPD (chronic obstructive pu lmonary disease) ([facility]) DX:COPD (chronic obstructive pulmonary disease) ([facility]) Hypoxemia DX:Hypoxemia Osteoporosis DX:Osteoporosis Pulmonary nodule DX:Pulmonary no dule Vitamin D deficiency DX:Vitamin D deficiency Family History Medical History Relation Name Comments Other cancer Brother Other cancer Father Lung cancer Father's side aunt Relation Name Status Comments Brother Father Father's side aunt Social History Tobacco Use Types Packs/Day Years Used Date Smoking Tobacco: Former Cigarettes Q uit: 06/12/2019 Comments Unknown Sex and Gender Information Value Date Recorded Sex Assigned at Female 07/26/2024 9:21 AM EST Legal Sex Female 12:06 AM EST Gender Identity Female 07/26/2024 9:21 AM EST Sexual Orientation Straight 07/26/2024 9: 23 AM EST Obstetrics History Last Filed Vital Signs Vital Sign Reading Time Taken Comments Blood Pressure 138/84 03/20/2024 2:12 PM EDT Sitting L Arm Pulse 112 03/20/2024 2:12 PM EDT Temperature - - Respiratory Rate - - Oxygen Saturation - - Inhaled Oxygen Concentration - - Weight 70.9 kg (156 lb 3.2 oz) 03/20/2024 2:12 PM EDT Height 167.6 cm (5' 6 ) 03/20/2024 2:12 PM EDT Body Mass Index 25.21 03/20/2024 2:12 PM EDT Plan of Treatment Upcoming Encounters Date Type Department Care Team ([facility] st Contact Info) Description 09/12/2024 10:30 AM EDT Appointment [facility] CT Scan [address] [place] [id number] 09/26/2024 2:15 PM EDT Office Visit Thoracic Surgery - [place] [address] [place] [address] Sarah Calderon PA [address] [place] [address] Health Maintenance Due Date Last Done Comments Breast Cancer Screening 1950 COVID-19 Vaccine (#1) 02/11/1957 DTaP,Tdap,and Td Vaccines (1 - Tdap) 02/11/1971 Pneumococcal Vaccine: 50+ Ye ars (1 of 2 - PCV) 02/11/1971 Zoster Vaccines (1 of 2) 02/11/1971 Colorectal Cancer Screening: Colonoscopy 05/15/2022 Depression Screening 05/15/2022 Falls Risk Assessment 05/15/2022 Hepatitis C Screening 05/15/2022 Medicare Annual Wellness Visit 05/15/2022 Osteoporosis Screening (Bone Density Screening) 05/15/2022 Social Influencers of Health Screening 05/15/2022 Influenza Vaccine (#1) 2024 RSV Immunization Patients 60 + Years Old (1 - 1-dose 75+ series) 02/11/2027 HIB Vaccines Aged Out No longer eligi ble based on patient's age to complete this topic HPV Vaccines Aged Out No longer eligi ble based on patient's age to complete this topic Hepatitis A Vaccines Aged Out No long er eligible based on patient's age to complete this topic Hepatitis B Vaccines Aged Out No long er eligible based on patient's age to complete this topic IPV Vaccines Aged Out No longer eligi ble based on patient's age to complete this topic MMR Vaccines Aged Out No longer eligi ble based on patient's age to complete this topic Meningococcal ACWY Vaccine Aged Out N o longer eligible based on patient's age to complete this topic Meningococcal B Vacine Aged Out No lo nger eligible based on patient's age to complete this topic RSV Immunization Patients Un anthony 20 months Aged Out No longer eligible b ased on patient's age to complete this topic Varicella Vaccines Aged Out No longer eligible based on patient's age to complete this topic Insurance [employer] MEDICARE Care Teams County Adviser Relationship Specialty Start Date End Date Chris Rey MD [facility] [place], [place] PCP - General 09/11/1995
== END 2024-07-30 13:15 | disposition home or self-care (01) ==
PROVIDERS: PCP Physician Assistant; Visit Provider Internal Medicine
DX: C34.11 Malignant neoplasm of upper lobe, right bronchus or lung (principal); J43.9 Emphysema, unspecified; R09.02 Hypoxemia; Z87.891 Personal history of nicotine dependence
CPT/HCPCS: 99213

== ENCOUNTER → 2024-07-30 09:32 | Outpatient (BNVA) | payer MEDICARE, SELFPAY | PROVIDERS: PCP Physician Assistant; Visit Provider Internal Medicine | DX: J43.9 Emphysema, unspecified (principal); C34.11 Malignant neoplasm of upper lobe, right bronchus or lung; R09.02 Hypoxemia; Z99.81 Dependence on supplemental oxygen; Z87.891 Personal history of nicotine dependence | CPT/HCPCS: 99212 ==

== ENCOUNTER 2024-10-15 10:08 | Outpatient (AMB) | payer MEDICARE, SELFPAY ==
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
[2024-10-15 10:17] VITALS: BP 146/80; PULSE 88; TEMP 36.2; O2SAT 94; BMI 23.8
--- OUTSIDE RECORDS SUMMARY | 2024-10-15 11:37 | XMS_ITS | Encounter Summary ---
Author Organization [facility] Address [address] [place] [address] Care Team Providers Care Elevated Guard Name Role Phone Chris Rey MD Primary Care Provider [phone] Reason for Referral * Imaging (Routine) - Closed Specialty Diagnoses / Procedures Referred By Zee glez Referred To Contact Radiology Diagnoses History of lung cancer Procedures CT Chest wo Contrast Jen Calvert NP [address] [address] Phone: tel: fax: [facility] Referral ID Status Reason Start Date Expiration Date Visits Re quested Visits Authorized [id number] Closed 06/24/2024 06/24/2025 1 1 Reason for Visit * Imaging (Routine) - Closed Specialty Diagnoses / Procedures Referred By Zee glez Referred To Contact Radiology Diagnoses History of lung cancer Procedures CT Chest wo Contrast Jen Calvert NP [address] [address] Phone: tel: fax: [facility] Referral ID Status Reason Start Date Expiration Date Visits Re quested Visits Authorized [id number] Closed 06/24/2024 06/24/2025 1 1 Encounter Details Date Type Department Care Team (Latest Contact Info) Description 10/09/2024 9:46 AM EDT - 10/09/2024 11:59 PM EDT Hospital Encounter [facility] CT Scan [address] [place] [id number] History of lung cancer Discharge Disposition: Home or Self Care Social History Tobacco Use Types Packs/Day Years Used Date Smoking Tobacco: Former Cigarettes Q uit: 06/12/2019 Comments Unknown Sex and Gender Information Value Date Recorded Sex Assigned at Female 07/26/2024 9:21 AM EST Legal Sex Female 12:06 AM EST Gender Identity Female 07/26/2024 9:21 AM EST Sexual Orientation Straight 07/26/2024 9: 23 AM EST documented as of this encounter Medications at Time of Discharge albuterol HFA (PROAIR HFA ; PROVENTIL HFA ; VENTOLIN HFA) 90 mcg/actuation inhaler Inhale 2 Puffs into the lungs every 4 hours as needed. atorvastatin (LIPITOR) 10 mg tablet Take 1 Tablet by mouth daily. fluticasone furoate-vilantero L (BREO ELLIPTA) 100-25 mcg/dose inhaler Inhale 1 [place] into the lungs at bedtime. lisinopriL (PRINIVIL,ZESTRIL ) 5 mg tablet Take 1 Tablet by mouth daily. umeclidinium (Incruse Ellipta) 62.5 mcg/actuation inhalation Inhale 1 [place] into the lungs every morning. documented as of this encounter Discharge Disposition Disposition Code Departure Means Destination Home or Self Care documented in this encounter Plan of Treatment Upcoming Encounters Date Type Department Care Team ([facility] Contact Info) Description 10/17/2024 9:15 AM EDT Office Visit Thoracic Surgery - [place] [address] [facility] [address] [place] [phone] Sarah Calderon PA [address] [place] [address], [address] [place] [address] documented as of this encounter Procedures Procedure Name Priority Date/Time Associated Diagnosis Comments CT CHEST WO CONTRAST Routine 10/09/2024 10:07 AM EDT History of lung cancer documented in this encounter Results * CT Chest wo Contrast (10/09/2024 10:07 AM EDT) Anatomical Region Laterality Modality Body Computed Tomogra phy 10/09/2024 10:1 9 AM EDT Impressions 10/09/2024 10:54 AM EDT Underlying emphysema. Progressive volume loss and fibrotic changes in the right apex. Some nodularity is present. I cannot distinguish residual/recurrent disease from postradiation fibrosis/volume loss. Recommend continued imaging surveillance. Recommend repeat CT in 3-6 months. ?? -------- FINAL REPORT -------- Dictated By: Natan Nolan Dictated Date: 10/09/2024 10:19 ET Assigned Physician: Natan Nolan Reviewed and Electronically Signed By: Natan Nolan Signed Date: 10/09/2024 10:54 ET Workstation ID: [id number] Transcribed By: Self Edit Transcribed Date: 10/09/2024 10:19 ET Narrative 10/09/2024 10:54 AM EDT EXAMINATION: CT CHEST WITHOUT CONTRAST CLINICAL INFORMATION: Right-sided cancer. ??Previous radiation COMPARISON: Portions of the previous CT 03/08/24, portions of previous 05/24/23, 02/09/22 and 01/25/21 ?? TECHNIQUE: Multidetector CT. Examination of the chest. Examination of the chest without IV contrast. Reformatting in the coronal and sagittal planes. DLP: 176 mGy-cm Dose optimization was performed including the use of low-dose iterative reconstruction technique with automatic exposure control based on patient size. Type of contrast: None Volume of IV contrast: None Volume of contrast discarded: 0 mL FINDINGS: LUNG: There are trace secretions within the trachea. There are linear secretions in the right mainstem bronchus. There is volume loss in the right upper lobe extending to the fissure with distortion. The amount of volume loss and soft tissue density in the apical right upper lobe extending to the fissure has become more prominent when compared to 03/08/24. This is difficult to quantify. There are a few nodular densities with angular margins at the expected site of the original nodule demonstrated on 02/09/22. It is difficult to confirm which if any of these represent residual or new disease. The postradiation changes have progressed. There is underlying centrilobular emphysema. There are some scattered reticular opacities. There are a few calcified granulomata. There is chronic volume loss in the inferior lingula. MEDIASTINUM: ??There are no measurably enlarged lymph nodes. There may be a tiny hiatal hernia. CARDIAC: The heart is not enlarged. No pericardial fluid or thickening ?? CORONARY CALCIFICATION: ??There are are extensive coronary calcifications or coronary stents. VASCULAR: There is no thoracic aortic aneurysm. The main pulmonary artery is normal caliber ?? PLEURA: There is no pleural fluid or pneumothorax. There is some pleural thickening in the right apex consistent with previous radiation. AXILLA/CHEST WALL: There are no enlarged axillary lymph nodes. No chest wall mass demonstrated ?? VISUALIZED UPPER ABDOMEN: ??No suspicious abnormality on limited assessment of the visualized upper abdomen. There is a punctate nonobstructing calcification in the upper left kidney. There is an approximately 1 cm contour abnormality of the posterior upper left kidney which appears similar to previous. MUSCULOSKELETAL: No suspicious focal bony lesion. ??. Unchanged severe volume loss in the upper thoracic spine. Procedure Note Natan Nolan MD - 10/09/2024 EXAMINATION: CT CHEST WITHOUT CONTRAST CLINICAL INFORMATION: Right-sided cancer. Previous radiation COMPARISON: Portions of the previous CT 03/08/24, portions of previous 05/24/23,02/09/22 and 01/25/21 TECHNIQUE: Multidetector CT. Examination of the chest. Examination of the chest without IV contrast. Reformatting in the coronal and sagittal planes. DLP: 176 mGy-cm Dose optimization was performed including the use of low-dose iterativereconstruction technique with automatic exposure control based on patientsize. Type of contrast: None Volume of IV contrast: None Volume of contrast discarded: 0 mL FINDINGS: LUNG: There are trace secretions within the trachea. There are linearsecretions in the right mainstem bronchus. There is volume loss in theright upper lobe extending to the fissure with distortion. The amount of volume loss and soft tissue density in the apical rightupper lobe extending to the fissure has become more prominent whencompared to 03/08/24. This is difficult to quantify. There are a few nodular densities with angular margins at the expectedsite of the original nodule demonstrated on 02/09/22. It is difficult toconfirm which if any of these represent residual or new disease. Thepostradiation changes have progressed. There is underlying centrilobular emphysema. There are some scatteredreticular opacities. There are a few calcified granulomata. There ischronic volume loss in the inferior lingula. MEDIASTINUM: There are no measurably enlarged lymph nodes. There may be atiny hiatal hernia. CARDIAC: The heart is not enlarged. No pericardial fluid or thickening CORONARY CALCIFICATION: There are are extensive coronary calcificationsor coronary stents. VASCULAR: There is no thoracic aortic aneurysm. The main pulmonary arteryis normal caliber PLEURA: There is no pleural fluid or pneumothorax. There is some pleuralthickening in the right apex consistent with previous radiation. AXILLA/CHEST WALL: There are no enlarged axillary lymph nodes. No chestwall mass demonstrated VISUALIZED UPPER ABDOMEN: No suspicious abnormality on limited assessmentof the visualized upper abdomen. There is a punctate nonobstructingcalcification in the upper left kidney. There is an approximately 1 cmcontour abnormality of the posterior upper left kidney which appearssimilar to previous. MUSCULOSKELETAL: No suspicious focal bony lesion. . Unchanged severevolume loss in the upper thoracic spine. IMPRESSION: Underlying emphysema. Progressive volume loss and fibrotic changes in the right apex. Somenodularity is present. I cannot distinguish residual/recurrent diseasefrom postradiation fibrosis/volume loss. Recommend continued imaging surveillance. Recommend repeat CT in 3-6 months. -------- FINAL REPORT -------- Dictated By: Natan Nolan Dictated Date: 10/09/2024 10:19 ET Assigned Physician: Natan Nolan Reviewed and Electronically Signed By: Natan Nolan Signed Date: 10/09/2024 10:54 ET Workstation ID: [id number] Transcribed By: Self Edit Transcribed Date: 10/09/2024 10:19 ET Jen Calvert NP IMG CT PROCEDURES Final Res ult documented in this encounter Visit Diagnoses Diagnosis History of lung cancer Personal history of malignant neoplasm of bronchus and lung documented in this encounter Care Teams Elevated Guard Relationship Specialty Start Date End Date Chris Rey MD [address] [place], [place] PCP - General 09/11/1995 documented as of this encounter
--- OUTSIDE RECORDS SUMMARY | 2024-10-15 11:37 | XMS_ITS | Clinical Summary ---
Author Organization [facility] Address [address] [place] [address] Phone Care Team Providers Care Invoicing Machine Operator Name Role Phone Chris Rey MD Primary Care Provider [phone] Allergies No known active allergies Medications albuterol HFA (PROAIR HFA ; PROVENTIL HFA ; VENTOLIN HFA) 90 mcg/actuation inhaler Inhale 2 Puffs into the lungs every 4 hours as needed. Active atorvastatin (LIPITOR) 10 mg tablet Take 1 Tablet by mouth daily. Active fluticasone furoate-vilanter oL (BREO ELLIPTA) 100-25 mcg/dose inhaler Inhale 1 [place] into the lungs at bedtime. Active lisinopriL (PRINIVIL,ZESTRI L) 5 mg tablet Take 1 Tablet by mouth daily. Active umeclidinium (Incruse Ellipta) 62.5 mcg/actuation inhalation Inhale 1 [place] into the lungs every morning. Active Active Problems Problem Noted Date Diagnosed Date Bronchogenic lung cancer, right (CMS/HCC V24, CM S/HCC V28) 06/19/2023 Overview (07/31/2024): Last Assessment & Plan: 73-year-old woman with severe COPD treated with stereotactic radiation about 1 year ago for right-sided lung cancer. CT scan done shows changes consistent with the radiation no evidence of recurrence or new disease. She has not followed up with radiation oncology and we will plan on putting her back in with them and from my standpoint we will plan on getting her a 6-month follow-up CT scan of the chest and a visit in this office after that. All questions were answered. Encounters Date Type Department Care Team Description 10/09/2024 9:46 AM EDT - 10/09/2024 11:59 PM EDT Hospital Encounter [facility] CT Scan [address] [address] History of lung cancer Discharge Disposition: Home or Self Care from Last 3 Months Immunizations Name Administration Dates Next Due PPD Test 12/22/2003 Td Tetanus diptheria (Tdvax) 7yo and older 12/21 Surgical History Surgery Date Site/Laterality Comments PARATHYROIDECTOMY 2007 PROCEDURE: HISTORICAL PARATHYROIDECTOMY Medical History Medical History Date Comments HTN (hypertension) DX:HTN (hyper tension) Community acquired pneumonia DX: Community acquired pneumonia COPD (chronic obstructive pu lmonary disease) ([facility] V24, [facility] V28) DX:COPD (chronic o bstructive pulmonary disease) ([facility]) Hypoxemia DX:Hypoxemia Osteoporosis DX:Osteoporosis Pulmonary nodule DX:Pulmonary [...] Upcoming Encounters Date Type Department Care Team ([facility] st Contact Info) Description 10/17/2024 9:15 AM EDT Office Visit Thoracic Surgery - [place] [address] [place] [id number] Sarah Calderon PA [address], [address] [place] [address] Health Maintenance Due Date Last Done Comments Breast Cancer Screening 1950 Zoster Vaccines (1 of 2) 02/11/1971 Pneumococcal Vaccine: 50+ Years (2 of 2 - PCV) 10/14/2021 10/14/2020 Depression Screening 05/15/2022 Falls Risk Assessment 05/15/2022 Hepatitis C Screening 05/15/2022 Medicare Annual Wellness Visit 05/15/2022 Osteoporosis Screening (Bone Density Screening) 05/15/2022 Social Influencers of Health Screening 05/15/2022 COVID-19 Vaccine (7 - Moderna risk ) 09/21/2024 03/23/2024, 04/24/2023, 05/27/2022, Additional history exists Colorectal Cancer Screening: FIT-DNA (Cologuard) 01/02/2027 01/03/2024, 01/03/2024, 10/30/2020 RSV Immunization Adult Patients (1 - 1-dose 75+ series) 02/11/2027 DTaP,Tdap,and Td Vaccines (3 - Td or Tdap) 10/17/2028 10/17/2018, 12/22/2003 Influenza Vaccine Completed 03/23/2024, , 04/23/2022, Additional history exists HIB Vaccines Aged Out No longer eligi [...] age to complete this topic Meningococcal B Vaccine Aged Out No l onger eligible based on patient's age to complete this topic RSV Immunization Patients Under 20 months Aged Out No longer eligible based on patient's age to complete this topic Varicella Vaccines Aged Out No longer eligible based on patient's age to complete this topic Procedures Procedure Name Priority Date/Time Associated Diagnosis Comments CT CHEST WO CONTRAST Routine 10/09/2024 10:07 AM EDT History of lung cancer from Last 3 Months Results * CT Chest wo Contrast (10/09/2024 [...] Signed Date: 10/09/2024 10:54 ET Workstation ID: [id number] Transcribed By: Self Edit Transcribed Date: 10/09/2024 [...] Signed Date: 10/09/2024 10:54 ET Workstation ID: [id number] Transcribed By: Self Edit Transcribed Date: 10/09/2024 10:19 ET us Jen Calvret BOILER INSPECTOR IMG CT PROCEDURES Final Res ult from Last 3 Months Insurance [employer] MEDICARE Care Teams Invoicing Machine Operator Relationship Specialty Start Date End Date Chris Rey MD [address] [place], [place] PCP - General 09/11/1995
== END 2024-10-15 11:54 | disposition home or self-care (01) ==
LOC: HO.HMCH 10:09
PROVIDERS: PCP Physician Assistant; Visit Provider Physician Assistant
DX: I10 Essential (primary) hypertension (principal); E78.2 Mixed hyperlipidemia; J43.9 Emphysema, unspecified; C34.11 Malignant neoplasm of upper lobe, right bronchus or lung

== ENCOUNTER → 2024-10-15 10:08 | Outpatient (BNVA) | payer MEDICARE, SELFPAY | PROVIDERS: PCP Physician Assistant; Visit Provider Physician Assistant | DX: I10 Essential (primary) hypertension (principal); E78.2 Mixed hyperlipidemia; J43.9 Emphysema, unspecified; C34.11 Malignant neoplasm of upper lobe, right bronchus or lung | CPT/HCPCS: 96127; 99212 ==

== ENCOUNTER 2025-01-10 08:05 | Outpatient (REF) | payer MEDICARE, SELFPAY ==
--- OUTSIDE RECORDS SUMMARY | 2025-01-10 08:08 | XMS_ITS | Clinical Summary ---
Author Organization [facility] Address [address] [place] [address] Phone Care Team Providers Care Crude Oil Treater Name Role Phone Chris Rey MD Primary Care Provider [phone] Allergies No known active allergies Medications albuterol HFA (PROAIR HFA ; PROVENTIL HFA ; VENTOLIN HFA) 90 mcg/actuation inhaler Inhale 2 Puffs into the lungs every 4 hours as needed. Active atorvastatin (LIPITOR) 10 mg tablet Take 1 Tablet by mouth daily. Active fluticasone furoate-vilanter oL (BREO ELLIPTA) 100-25 mcg/dose inhaler Inhale 1 [place] into the lungs at bedtime. Active lisinopriL (PRINIVIL,ZESTRI L) 5 mg tablet Take 1 Tablet by mouth daily. Active umeclidinium (Incruse Ellipta) 62.5 mcg/actuation inhalation Inhale 1 [place] into the lungs every morning. Active Active Problems Problem Noted Date Diagnosed Date History of lung cancer 10/17/2024 Assessment & Plan (10/17/2024 8:46 AM EDT): Ms. Guillen is a 74-year-old female who was diagnosed with a right upper lobe adenocarcinoma in April 2022 by navigational bronchoscopy. She was treated with stereotactic radiation completed in June 2022. The patient's most recent surveillance chest CT scan done in September 2024 shows some progressive volume loss and opacification in the right upper lobe extending into the right fissure when compared to previous exams associated with some degree of nodularity. The patient has no mediastinal adenopathy or other pulmonary nodules of concern. Per my personal review of the patient's current and previous CT scans the increasing opacification in the right upper lobe does appear more linear as opposed to masslike or nodular and most likely represents post radiation changes. However, new or recurrent malignancy remains on the differential. Will follow-up on this finding with her next chest CT scan which would be in 6 months, April 2025. The patient is told to call the office should she have any questions or concerns prior to that time. Resolved Problems Problem Noted Date Diagnosed Date Resolved Date Bronchogenic lung cancer, ri ght ([facility] V24, [facility] V28) 06/19/2023 10/17/2024 Overview (07/31/2024): Last Assessment & Plan: 73-year-old [...] Encounters Date Type Department Care Team Description 10/17/2024 9:15 AM EDT Office Visit Thoracic Surgery - [address] [address] Sarah Calderon PA History of lung cancer (Primary Dx) from Last 3 Months Immunizations Name Administration Dates Next Due PPD Test 12/22/2003 Td Tetanus diptheria (Tdvax) 7yo and older 12/21 Surgical History Surgery Date Site/Laterality Comments PARATHYROIDECTOMY 2008 PROCEDURE: HISTORICAL PARATHYROIDECTOMY Medical History Medical History Date Comments HTN (hypertension) DX:HTN (hyper tension) Community acquired pneumonia DX: Community acquired pneumonia COPD (chronic obstructive pu lmonary disease) ([facility] V24, [facility] V28) DX:COPD (chronic o bstructive pulmonary disease) (HCC) Hypoxemia DX:Hypoxemia Osteoporosis DX:Osteoporosis Pulmonary nodule DX:Pulmonary no dule Vitamin D deficiency DX:Vitamin D deficiency Bronchogenic lung cancer, ri ght ([facility] V24, [facility] V28) 06/19/2023 Last Assessment & Plan: 73- year-old woman with severe COPD treated with stereotactic radiation about 1 year ago for right-sided lung cancer. CT scan done shows changes consistent with the radiation no evidence of recurrence or new disease. She has not followed up with radiation oncology and we will plan on putting her back in with them and from my standpoint we will plan on getting her a 6-m Family History Medical History Relation Name Comments [...] Sign Reading Time Taken Comments Blood Pressure 138/56 10/17/2024 9:12 AM EDT Pulse 102 10/17/2024 9:12 AM EDT Temperature 36.6 C (97.9 F) 10/17/2024 9:12 AM EDT Respiratory Rate 16 10/17/2024 9:12 AM EDT Oxygen Saturation 100% 10/17/2024 9:12 AM EDT Inhaled Oxygen Concentration - - Weight 67.8 kg (149 lb 8 oz) 10/17/2024 9:12 AM EDT Height 167.6 cm (5' 6 ) 10/17/2024 9:12 AM EDT Body Mass Index 24.13 10/17/2024 9:12 AM EDT Plan of Treatment Health Maintenance Due Date Last Done Comments Breast Cancer Screening 1950 Zoster Vaccines (1 of 2) 02/11/1971 Pneumococcal Vaccine: 50+ Years (2 of 2 - PCV) 10/14/2021 10/14/2020 Falls Risk Assessment 05/15/2022 Hepatitis C Screening 05/15/2022 Medicare Annual Wellness Visit 05/15/2022 Osteoporosis Screening (Bone Density Screening) 05/15/2022 Social Influencers of Health Screening 05/15/2022 Depression Screening 06/12/2024 COVID-19 Vaccine (7 - Moderna risk 2023- season) 2024 03/23/2024, 04/24/2023, 05/27/2022, Additional history exists Influenza Vaccine (#1) 2025 , 04/24/2023, 04/23/2022, Additional history exists Colorectal Cancer Screening: FIT-DNA (Cologuard) 01/02/2027 01/03/2024, 01/03/2024, 10/30/2020 RSV Immunization Adult Patients (1 - 1-dose 75+ series) 02/11/2027 DTaP,Tdap,and Td Vaccines (3 - Td or Tdap) 10/17/2028 10/17/2018, 12/22/2003 HIB Vaccines Aged Out No longer eligi [...] topic Insurance [employer] MEDICARE Care Teams Crude Oil Treater Relationship Specialty Start Date End Date Chris Rey MD [facility] [place], [place] PCP - General 09/11/1995
[2025-01-10 08:35] LABS: Hematocrit 37.3 % (37.0-47.0); Hemoglobin 11.5 g/dl (12.0-16.0); Mean Corpuscular HGB Conc 30.8 g/dl (31.0-35.0); Mean Corpuscular Hemoglobin 27.5 pg (27.0-33.0); Mean Corpuscular Volume 89.2 fL (80.0-98.0); NRBC Abs Auto 0.000 X10*3/uL (0.0-0.012); NRBC Pct Auto 0.0 /100WBC (0.0-0.2); Platelet Count 231 X10*3/uL (160-400); Red Blood Count 4.18 X10*6/uL (4.20-5.50); White Blood Count 7.4 X10*3/uL (4.8-10.8)
[2025-01-10 09:10] LABS: Alanine Aminotransferase 24 U/L (0-31); Albumin Level 4.5 g/dL (3.5-5.0); Alkaline Phosphatase 96 U/L (39-117); Anion Gap 13 (12-20); Aspartate Amino Transferase 28 U/L (5-31); Blood Urea Nitrogen 22 mg/dL (9-16); Calcium 9.1 mg/dL (8.4-10.2); Carbon Dioxide 28 mmol/L (22-29); Chloride 105 mmol/L (96-108); Cholesterol 221 mg/dL (<200); Estimated Glomerular Filt Rate 50; HDL Cholesterol 89 mg/dL (>40); Potassium 4.0 mmol/L (3.3-5.1); Sodium 142 mmol/L (135-145); Total Protein 7.4 g/dL (6.5-8.0); Triglycerides 114 mg/dL (<150)
[2025-01-10 09:39] LABS: Microalbum/Creatinine Ratio Ur 35.7 ug/mg cr (<30)
== END 2025-01-10 08:06 | disposition home or self-care (01) ==
LOC: HO.LAB 08:05
PROVIDERS: PCP Physician Assistant; Visit Provider Internal Medicine Endocrinology, Diabetes & Metabolism
DX: E78.2 Mixed hyperlipidemia (principal); I10 Essential (primary) hypertension; E55.9 Vitamin D deficiency, unspecified
CPT/HCPCS: 36415; 80053; 80061; 82043; 82306; 82570; 85027

== ENCOUNTER 2025-01-14 08:12 | Outpatient (AMB) | payer MEDICARE, SELFPAY ==
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
--- OUTSIDE RECORDS SUMMARY | 2025-01-14 08:19 | XMS_ITS | Clinical Summary ---
Author Organization [facility] Address [address] [place] [address] Phone Care Team Providers Care Glass Inspector Name Role Phone Chris Rey MD Primary Care Provider [phone] Allergies No known active allergies Medications albuterol HFA (PROAIR HFA ; PROVENTIL HFA ; VENTOLIN HFA) 90 mcg/actuation inhaler Inhale 2 Puffs into the lungs every 4 hours as needed. Active atorvastatin (LIPITOR) 10 mg tablet Take 1 Tablet by mouth daily. Active fluticasone furoate-vilanter oL (BREO ELLIPTA) 100-25 mcg/dose inhaler Inhale 1 [place] into the lungs at bedtime. Active lisinopriL (PRINIVIL,ZESTRI L) 5 mg tablet Take 1 Tablet by mouth daily. Active umeclidinium (Incruse Ellipta) 62.5 mcg/actuation inhalation Inhale 1 [place] into the lungs every morning. Active Active [...] Resolved Date Bronchogenic lung cancer, ri ght ([facility] V24, [facility] V28) 06/19/2023 10/17/2024 Overview (07/31/2024): Last Assessment [...] AM EDT Office Visit Thoracic Surgery - [address] [address] Sarah Calderon PA History of [...] pneumonia COPD (chronic obstructive pu lmonary disease) ([facility] V24, [facility] V28) DX:COPD (chronic o bstructive pulmonary disease) (HCC) Hypoxemia DX:Hypoxemia Osteoporosis DX:Osteoporosis Pulmonary nodule DX:Pulmonary no dule Vitamin D deficiency DX:Vitamin D deficiency Bronchogenic lung cancer, ri ght ([facility] V24, [facility] V28) 06/19/2023 Last Assessment & Plan: 73- [...] topic Insurance [employer] MEDICARE Care Teams Glass Inspector Relationship Specialty Start Date End Date Chris Rey MD [facility] [place], [place] PCP - General 09/11/1995
[2025-01-14 08:21] VITALS: BP 106/72; PULSE 75; O2SAT 96; BMI 24.9
== END 2025-01-14 08:40 | disposition home or self-care (01) ==
LOC: HO.ENCR 08:13
PROVIDERS: PCP Physician Assistant; Visit Provider Internal Medicine Endocrinology, Diabetes & Metabolism
DX: M81.0 Age-related osteoporosis without current pathological fracture (principal)
CPT/HCPCS: 99213

== ENCOUNTER → 2025-01-14 08:12 | Outpatient (BNVA) | payer MEDICARE, SELFPAY | PROVIDERS: PCP Physician Assistant; Visit Provider Internal Medicine Endocrinology, Diabetes & Metabolism | DX: M81.0 Age-related osteoporosis without current pathological fracture (principal); Z79.620 Long term (current) use of immunosuppressive biologic | CPT/HCPCS: 96372; 99212; J0897 ==

== ENCOUNTER 2025-03-20 10:00 | Outpatient (REF) | payer MEDICARE, SELFPAY ==
--- NOTE | ~2025-03-20 | MM_ITS ---
EXAMINATION: DXA BONE DENSITY AXIAL HISTORY: M81.0 - Age-related osteoporosis without current pathological fracture TECHNIQUE: RunRev Dual energy absorptiometry (DEXA) of the lumbar spine, total left hip, and femoral neck was performed. COMPARISON: Comparison is made with the prior examination dated 01/18/2023. FINDINGS: The bone mineral density of the lumbar spine is 0.860 g/cm2, corresponding to a T-score of -2.6, and a Z-score of -1.0. This is indicative of osteoporosis. This represents a BMD change of 14.7% compared to the prior exam. This is statistically significant. The bone mineral density of the left total hip is 0.732 g/cm2, corresponding to a T-score of -2.2, and a Z-score of -0.6. This is indicative of osteopenia. This represents a BMD change of 1.8% compared to the prior exam. This is not statistically significant. The bone mineral density of the left femoral neck is 0.694 g/cm2, corresponding to a T-score of -2.5, and a Z-score of -0.7. This is indicative of osteoporosis. This represents a BMD change of -2.8% compared to the prior exam. FRACTURE RISK: The FRAX index suggests a ten year probability of major osteoporotic fracture of 15.9%, and of hip fracture 4.7%. MM/XR DEXA axial skeleton IMPRESSION: Based on bone mineral density, and according to World Health Organization (WHO) criteria, the diagnosis is consistent with osteoporosis. Statistically, 68% of repeat scans fall within 1 SD (+/- 0.010 g/cm2 for AP spine L1-L4) and 1 SD (+/- 0.012 g/cm2 for femur total) FRAX is a trademark of the [employer], a World Health Organization (WHO) Collaborating Center. Electronically signed by: Suraj Beach MD 03/20/2025 11:21 AM EDT
== END 2025-03-20 10:01 | disposition home or self-care (01) ==
LOC: HO.MAMMO 10:00
PROVIDERS: PCP Physician Assistant; Visit Provider Internal Medicine Endocrinology, Diabetes & Metabolism
DX: Z12.31 Encounter for screening mammogram for malignant neoplasm of breast (principal); M81.0 Age-related osteoporosis without current pathological fracture
CPT/HCPCS: 77063; 77067; 77080

== ENCOUNTER → 2025-03-20 10:30 | Outpatient (BNV) | payer MEDICARE, SELFPAY | PROVIDERS: PCP Physician Assistant; Visit Provider Radiology Diagnostic Radiology | DX: E28.39 Other primary ovarian failure (principal) | CPT/HCPCS: 77080 ==

== ENCOUNTER 2025-04-17 08:53 | Outpatient (AMB) | payer MEDICARE, SELFPAY ==
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
[2025-04-17 09:03] VITALS: BP 112/70; PULSE 103; TEMP 36; O2SAT 97; BMI 24.8
--- OUTSIDE RECORDS SUMMARY | 2025-04-17 09:34 | XMS_ITS | Clinical Summary ---
Author Organization [facility] Address [address] [place] [address] Phone Care Team Providers Care Laser Beam Color Scanner Operator Name Role Phone Chris Rey MD Primary Care Provider [phone] Allergies No known active allergies Medications albuterol HFA (PROAIR HFA ; PROVENTIL HFA ; VENTOLIN HFA) 90 mcg/actuation inhaler Inhale 2 Puffs into the lungs every 4 hours as needed. Active atorvastatin (LIPITOR) 10 mg tablet Take 1 Tablet by mouth daily. Active fluticasone furoate-vilanter oL (BREO ELLIPTA) 100-25 mcg/dose inhaler Inhale 1 [place] into the lungs at bedtime. Active lisinopriL (PRINIVIL,ZESTRI L) 5 mg tablet Take 1 Tablet by mouth daily. Active umeclidinium (Incruse Ellipta) 62.5 mcg/actuation inhalation Inhale 1 [place] into the lungs every morning. Active Active [...] Resolved Date Bronchogenic lung cancer, ri ght ([facility] V24, [facility] V28) 06/19/2023 [...] office after that. All questions were answered. Immunizations Immunization Administration Dates Next Due PPD Test 12/22/2003 Td Tetanus diptheria (Tdvax) 7yo and older 12/21 Surgical History Surgery Date Site/Laterality Comments PARATHYROIDECTOMY 2007 PROCEDURE: HISTORICAL PARATHYROIDECTOMY Medical History Medical History Date Comments HTN (hypertension) DX:HTN (hyper tension) Community acquired pneumonia DX: Community acquired pneumonia COPD (chronic obstructive pu lmonary disease) ([facility] V24, [facility] V28) DX:COPD (chronic o bstructive pulmonary disease) ([facility]) Hypoxemia DX:Hypoxemia Osteoporosis DX:Osteoporosis Pulmonary nodule DX:Pulmonary no dule Vitamin D deficiency DX:Vitamin D deficiency Bronchogenic lung cancer, ri ght ([facility] V24, [facility] V28) 06/19/2023 [...] 10/17/2024 9:12 AM EDT Plan of Treatment Upcoming Encounters Date Type Department Care Team (Late st Contact Info) Description 04/22/2025 8:30 AM EST Appointment [facility] CT Scan [address] [place] [id number] 04/29/2025 9:00 AM EST Office Visit Thoracic Surgery - [place] [address] [place] [id number] Jen Calvert NP [address] [place] [address] Health Maintenance Due Date Last Done Comments Breast Cancer Screening 1950 Zoster Vaccines (1 of 2) 02/11/1971 Pneumococcal Vaccine: 50+ Years (2 of 2 - PCV) 10/14/2021 10/14/2020 Falls Risk Assessment 05/15/2022 Hepatitis C Screening 05/15/2022 Medicare Annual Wellness Visit 05/15/2022 Osteoporosis Screening (Bone Density Screening) 05/15/2022 Social Influencers of Health Screening 05/15/2022 Depression Screening 06/12/2024 COVID-19 Vaccine (7 - Moderna risk season) 2025 03/23/2024, 04/24/2023, 05/27/2022, Additional history exists Influenza [...] topic Insurance [employer] MEDICARE Care Teams Laser Beam Color Scanner Operator Relationship Specialty Start Date End Date Chris Rey MD [facility] [place], [place] PCP - General 09/11/1995
== END 2025-04-17 09:33 | disposition home or self-care (01) ==
LOC: HO.HMCH 08:54
PROVIDERS: PCP Physician Assistant; Visit Provider Physician Assistant
DX: Z00.00 Encounter for general adult medical examination without abnormal findings (principal); Z23 Encounter for immunization

== ENCOUNTER → 2025-04-17 08:53 | Outpatient (BNVA) | payer MEDICARE, SELFPAY | PROVIDERS: PCP Physician Assistant; Visit Provider Physician Assistant | DX: Z23 Encounter for immunization (principal) | CPT/HCPCS: 90471; 90677 ==